=== PATIENT | male | born 1965 | race Caucasian/White ===

== ENCOUNTER 2022-02-20 10:45 | Emergency (ER) | payer OTHER, SELFPAY ==
[2022-02-20 10:47] VITALS: BP 138/79; PULSE 68; RESP 18; TEMP 36.1; O2SAT 97; BMI 29.0
--- NOTE | 2022-02-20 12:09 | ED_ITS ---
HPI - General Adult General Chief complaint: General Medical Stated complaint: Wounds on L hand Time Seen by Provider: 02/20/22 11:52 Source: patient Mode of arrival: ambulatory Limitations: language barrier (Danish-speaking medical assistant per diem utilized) History of Present Illness HPI narrative: Patient presents emergency department for evaluation of rash present to the bilateral backs of his hands. Onset was 3 months ago. Initially started with small raised bumps. He received a steroid cream from his primary care provider which he had been applying. He states over the past month that has seemed to get a lot worse. He stopped using steroid cream approximately 3 weeks ago as he felt this was contributing to it. He denies any additional skin lesions or rashes. Denies fevers or chills. Denies itching. Related Data Allergies Allergy/AdvReac Type Severity Reaction Status Date / Time No Known Allergies Allergy Unverified 03/12/20 16:40 Review of Systems Review of Systems: Constitutional: No weight loss, fever, chills, weakness or fatigue. Skin: Positive rash and itching. Cardiovascular: No chest pain, chest pressure or chest discomfort. No palpitations Respiratory: No shortness of breath, cough or sputum production. Gastrointestinal: No nausea, vomiting or diarrhea. No abdominal pain Genitourinary: No burning micturition. No urinary frequency or incontinence. Musculoskeletal: No muscle pain, back pain, joint pain or stiffness. Psychiatric: No depression or anxiety. Yes all other systems are reviewed and are negative [facility] Past Medical History Attestation statement: The following information was validated with the patient. Source: old records reviewed Social History Social History Advance Directives: No Advance Directives Information Provided: No Physical Exam ED Vital Signs: Vital Signs - 24 hr 02/20/22 10:47 Temperature 97 F Pulse Rate 68 Respiratory Rate 18 Blood Pressure 138/79 Pulse Oximetry 97 Oxygen Delivery Method Room Air BMI result Body Mass Index 29.0 Appearance: Alert.?Oriented to person, place and time. No acute distress.?Normal affect. Eyes: Pupils equal, round and reactive to light.? ENT: Pharynx normal.?? Neck: Normal inspection.? Neck supple.?? CVS: Heart sounds normal. Normal heart rate and rhythm.? Pulses normal.?? Respiratory: No respiratory distress.? Lung sounds clear to auscultation bilaterally?? Abdomen: Soft and non-tender. Skin: Skin warm and dry.? Normal skin color.? Bilateral dorsal hands, flexor surface knuckles with scales of linear fissures, poorly demarcated flesh-colored patches Extremities: No lower extremity edema.? Neuro: Moves all extremities spontaneously. Sensation intact bilaterally. Ambulates with normal steady gait. Course Course Course Narrative: Patient is a 56-year-old male presents emergency department for evaluation of a rash to the bilateral dorsal hands. Had trialed topical corticosteroid cream prescribed by his primary care provider. However he reports over the past few weeks the rash to be getting worse, and he felt this was related to the steroid cream therefore he stopped using it. Rash appears consistent with atopic dermatitis. No surrounding concerns for infection/cellulitis. Appears consistent with eczema. Advised twice daily moisturization, avoidance urine since that is being agents, use globes. Advised outpatient follow-up with primary care provider as needed. Reviewed worrisome signs and symptoms return back to emergency department for. All questions were answered, and patient is discharged home in stable condition. Medical Decision Making Medical Records Medical records reviewed: Yes I reviewed the patient's medical records. Discharge Plan Discharge Clinical Impression: Atopic dermatitis of both hands Patient Disposition: Home, Self-Care Instructions: Eczema (ED), Dermatitis (ED) Additional Instructions: As we discussed, please avoid contact with chemicals, cleaning agents, or excessive hand coastal/harbor defense officer to bare hands. You should consider the use of gloves. Please purchase from the pharmacy moisturizing ointment and apply twice daily. Avoid the use of steroid cream as he stated that this made it worse. Contact your primary care provider in arrange for a follow-up visit. You may return to emergency department at any time for any new or worsening symptoms or concerns Interventions: ED Discharge Assessment Last Done: 02/20/22 12:30 Discharge Date/Time: 02/20/22 12:31
== END 2022-02-20 12:31 | disposition home or self-care (01) ==
PROVIDERS: Emergency Provider Emergency Medicine; PCP Internal Medicine
DX: L30.9 Dermatitis, unspecified (principal)
CPT/HCPCS: 99283

== ENCOUNTER 2023-01-09 13:12 | Emergency (ER) | payer OTHER, SELFPAY | END 2023-01-09 15:04 | disposition left against medical advice (07) | PROVIDERS: Emergency Provider Emergency Medicine; PCP Internal Medicine | DX: S69.92XA Unspecified injury of left wrist, hand and finger(s), initial encounter (principal); S69.91XA Unspecified injury of right wrist, hand and finger(s), initial encounter; X58.XXXA Exposure to other specified factors, initial encounter; Y93.9 Activity, unspecified; Y92.9 Unspecified place or not applicable; Y99.9 Unspecified external cause status ==

== ENCOUNTER 2024-04-17 17:31 | Emergency (ER) | payer OTHER, SELFPAY ==
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
[2024-04-17 17:59] VITALS: BP 121/76; PULSE 48; RESP 18; TEMP 36.7; O2SAT 96; BMI 32.3
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
[2024-04-17 20:51] VITALS: BP 132/75; PULSE 50; RESP 16; TEMP 36.8; O2SAT 95
[2024-04-17] MEDS: methocarbamoL 750 MG TABLET PO (22:28)
[2024-04-17 23:02] VITALS: BP 132/75; PULSE 50; RESP 16; TEMP 36.8; O2SAT 95
== END 2024-04-17 23:03 | disposition home or self-care (01) ==
PROVIDERS: Emergency Provider Internal Medicine; PCP Internal Medicine
DX: S13.4XXA Sprain of ligaments of cervical spine, initial encounter (principal); S39.012A Strain of muscle, fascia and tendon of lower back, initial encounter; V43.52XA Car driver injured in collision with other type car in traffic accident, initial encounter; Y93.89 Activity, other specified; Y92.414 Local residential or business street as the place of occurrence of the external cause; Y99.9 Unspecified external cause status
CPT/HCPCS: 70450; 72100; 72125; 99282; 99284

== ENCOUNTER 2024-10-27 18:33 | Inpatient (IN) | payer OTHER, SELFPAY ==
[2024-10-27] VITALS (47 sets, daily range): BP systolic 78–213; BP diastolic 56–118; PULSE 35–132; RESP 12–44; TEMP 32–35.9; O2SAT 33–100; BMI 30.4; BMI 33.7
--- NOTE | 2024-10-27 | ECG_ITS ---
Test Reason : elevated trop Blood Pressure : */* mmHG Vent. Rate : 47 BPM Atrial Rate : 47 BPM P-R Int : 186 ms QRS Dur : 96 ms QT Int : 464 ms P-R-T Axes : 68 70 83 degrees QTcB Int : 410 ms Sinus bradycardia with Premature ventricular complexes Nonspecific ST and T wave abnormality Abnormal ECG No previous ECGs available Referred By: Marisel Garner Electronically Signed By: NUNU PEREZ
--- NOTE | ~2024-10-27 | CT_ITS ---
CLINICAL HISTORY: mental status changes CT head without contrast Comparison: CT/SR - CT HEAD/BRAIN WO IV CON - 04/17/24 19:02 EDT Findings: No intra-axial mass, midline shift, hydrocephalus, or acute hemorrhage. No significant atrophy-like change or white matter disease. Mucosal thickening throughout the paranasal sinuses. The orbits are within normal limits. No skull fracture. IMPRESSION: 1. No acute intracranial findings. This document has been electronically signed by: Rosendo Garcia MD on 10/27/2024 22:27:31
--- NOTE | ~2024-10-27 | XR_ITS ---
CLINICAL HISTORY: tube placement 1 view chest x-ray Comparison: CR - XR CHEST 2V - 10/27/24 19:49 EDT Findings: Study performed at 8:48 p.m. Patient has been intubated. Tip of the endotracheal tube is 5.6 cm superior to the foster. Defibrillator pads project over the right mid chest in the left lower chest. Interstitial markings remain prominent. IMPRESSION: Interval intubation. This document has been electronically signed by: Eddie Veras MD on 10/27/2024 21:22:42
--- NOTE | ~2024-10-27 | XR_ITS ---
CLINICAL HISTORY: mental status change, ? aspiration Exam: AP portable chest x-ray. Comparison: None. Findings: Defibrillator pad projects over the mid aspect of the right chest. Lungs are well inflated. Cardiac silhouette is at the upper limits of normal for size. Interstitial prominence seen throughout the lungs, especially within the right mid lung and right lung base. Small right pleural effusion. No pneumothorax. Impression: Interstitial prominence with small right pleural effusion. This can be seen with edema or bronchitis/bronchiolitis. This document has been electronically signed by: Eddie Veras MD on 10/27/2024 20:16:12
--- NOTE | ~2024-10-27 | XR_ITS ---
EXAMINATION: XR CHEST 1 VIEW HISTORY: NGT Placement COMPARISON: Comparison is made with the prior examination dated 10/27/2024. FINDINGS: A single AP view of the lower chest and upper abdomen is submitted. There may be tiny bilateral pleural effusions at the lung bases. A nasogastric tube is noted which terminates in the stomach. The heart is normal in size. There is degenerative disc disease of the spine. A metallic density projects over the right heart. XR/XR chest 1V IMPRESSION: The nasogastric tube terminates in the stomach. Electronically signed by: Kurtis Lazaro MD 10/28/2024 08:15 AM EDT
--- NOTE | 2024-10-27 18:51 | ECG_ITS ---
Test Reason : od Blood Pressure : */* mmHG Vent. Rate : 59 BPM Atrial Rate : 59 BPM P-R Int : 178 ms QRS Dur : 116 ms QT Int : 384 ms P-R-T Axes : 58 72 79 degrees QTcB Int : 380 ms Sinus bradycardia with frequent Premature ventricular complexes Nonspecific ST abnormality Abnormal ECG When compared with ECG of 27-Oct-2024 18:49, No significant change was found Referred By: Roshan Church Electronically Signed By: NUNU PEREZ
--- NOTE | 2024-10-27 18:54 | ED_ITS ---
HPI - General Adult General Chief complaint: Overdose Stated complaint: OD, Given Narcan 1 mg Time Seen by Provider: 10/27/24 18:54 Source: EMS and RN notes reviewed Mode of arrival: EMS Limitations: altered mental status History of Present Illness HPI narrative: 59-year-old male unknown medical history, presents via EMS. According to EMS, the patient was eating dinner when he ?passed out?. This was witnessed by the patient's . He apparently vomited as well. EMS was contacted. According to EMS his pupils were pinpoint and he was given 2 mg of Narcan and shortly after awoke. He admitted to EMS that he used 2 bags of heroin . in addition, he was noted by EMS to be bradycardic in the 30s to 40s, improved after Narcan. No known trauma. History is limited at this time due to patient condition. Related Data Home Medications ?Medication ?Instructions ?Recorded ?Confirmed methadone 10 mg tablet 100 mg PO DAILY 10/28/24 Allergies Allergy/AdvReac Type Severity Reaction Status Date / Time No Known Allergies Allergy Verified 10/27/24 18:54 Review of Systems 2 Review of Systems: Yes Unobtainable due to mental status PMFSH Past Medical History Source: unable to obtain Social History Social History (System 04/14/22 @ 08:21 by Nicole Rodriguez) Household Members: Significant Other and Children Housing: Apartment Do you presently have visiting nurse or other home services: No Patient Tobacco Use Status: Tobacco use Unknown Tobacco use type: Cigarette Cigarettes Per Day: 20 Smoked in Last 30 Days: Yes Patient Given Instructions on How to Stop Smoking: No (intubated/sedated) Use of substances other than those prescribed or required for medical reasons: Yes Substance Use Type: Heroin and Opiates Last Used Substance: Just Prior to Admission Currently Displaying Signs/Symptoms of Drug Intoxication Withdrawal: No Advance Directives: No Advance Directives Information Provided: No Recently lost weight without trying: Unsure Physical Exam ED Vital Signs: Vital Signs - 24 hr 10/27/24 18:53 10/27/24 19:05 10/27/24 19:08 Pulse Rate 50 40 L 41 L Respiratory Rate 18 14 12 Blood Pressure 165/102 H 213/118 H 203/108 H Pulse Oximetry 98 33 L 67 L Oxygen Delivery Method Room Air Non-Rebreather Mask Non-Rebreather Mask Oxygen Flow Rate 15 Fraction of Inspired Oxygen 10/27/24 19:09 10/27/24 19:10 10/27/24 19:11 Pulse Rate 65 79 58 Respiratory Rate 14 23 H 29 H Blood Pressure 202/118 H 191/116 H Pulse Oximetry 60 L 88 L 88 L Oxygen Delivery Method Non-Rebreather Mask Non-Rebreather Mask Non-Rebreather Mask Oxygen Flow Rate 15 15 15 Fraction of Inspired Oxygen 10/27/24 19:14 10/27/24 19:15 10/27/24 19:16 Pulse Rate 70 82 104 H Respiratory Rate 19 24 H 41 H Blood Pressure Pulse Oximetry 91 L 90 L Oxygen Delivery Method Non-Rebreather Mask Non-Rebreather Mask Oxygen Flow Rate 15 Fraction of Inspired Oxygen 10/27/24 19:20 10/27/24 19:21 10/27/24 19:24 Pulse Rate 132 H 96 115 H Respiratory Rate 23 H 28 H 41 H Blood Pressure 116/93 H Pulse Oximetry 87 L 95 92 Oxygen Delivery Method Non-Rebreather Mask Nasal Cannula with ETCO2 Non-Rebreather Mask Oxygen Flow Rate 15 15 Fraction of Inspired Oxygen 10/27/24 19:26 10/27/24 19:30 10/27/24 19:35 Pulse Rate 92 92 87 Respiratory Rate 41 H 41 H 40 H Blood Pressure 166/117 H 166/117 H 142/104 H Pulse Oximetry 90 L 90 L 96 Oxygen Delivery Method Non-Rebreather Mask Non-Rebreather Mask Non-Rebreather Mask Oxygen Flow Rate 15 15 Fraction of Inspired Oxygen 10/27/24 19:40 10/27/24 19:46 10/27/24 19:50 Pulse Rate 99 78 102 H Respiratory Rate 33 H 38 H 33 H Blood Pressure 154/104 H 162/106 H 123/92 H Pulse Oximetry 98 98 98 Oxygen Delivery Method Non-Rebreather Mask Non-Rebreather Mask Non-Rebreather Mask Oxygen Flow Rate 15 15 15 Fraction of Inspired Oxygen 10/27/24 20:00 10/27/24 20:02 10/27/24 20:03 Pulse Rate 55 63 35 L Respiratory Rate 35 H 39 H 39 H Blood Pressure 130/84 133/90 H Pulse Oximetry 97 97 97 Oxygen Delivery Method Non-Rebreather Mask Non-Rebreather Mask Non-Rebreather Mask Oxygen Flow Rate 15 15 15 Fraction of Inspired Oxygen 10/27/24 20:04 10/27/24 20:21 10/27/24 20:23 Pulse Rate 58 102 H 89 Respiratory Rate 32 H 42 H 39 H Blood Pressure 124/86 129/94 H Pulse Oximetry 97 99 98 Oxygen Delivery Method Non-Rebreather Mask Non-Rebreather Mask Non-Rebreather Mask Oxygen Flow Rate 15 15 15 Fraction of Inspired Oxygen 10/27/24 20:25 10/27/24 20:32 10/27/24 20:34 Pulse Rate 60 95 Respiratory Rate 44 H 36 H 20 Blood Pressure 137/81 Pulse Oximetry 98 96 Oxygen Delivery Method Non-Rebreather Mask Non-Rebreather Mask Oxygen Flow Rate 15 15 Fraction of Inspired Oxygen 10/27/24 20:34 10/27/24 20:37 10/27/24 20:45 Pulse Rate 78 79 75 Respiratory Rate 15 21 H 20 Blood Pressure 139/87 145/89 H 109/78 Pulse Oximetry 98 99 98 Oxygen Delivery Method Mechanical Ventilation Mechanical Ventilation Mechanical Ventilation Oxygen Flow Rate Fraction of Inspired Oxygen 10/27/24 20:50 10/27/24 20:59 10/27/24 21:01 Pulse Rate 86 70 79 Respiratory Rate 20 20 20 Blood Pressure 130/89 116/80 116/94 H Pulse Oximetry 96 93 91 L Oxygen Delivery Method Mechanical Ventilation Oxygen Flow Rate Fraction of Inspired Oxygen 10/27/24 21:01 10/27/24 21:06 10/27/24 21:19 Pulse Rate 74 70 Respiratory Rate 20 21 H Blood Pressure 128/94 H 128/94 H Pulse Oximetry 91 L 90 L Oxygen Delivery Method Mechanical Ventilation Oxygen Flow Rate Fraction of Inspired Oxygen 100 10/27/24 21:30 10/27/24 22:22 10/27/24 22:28 Pulse Rate 68 65 Respiratory Rate 20 23 H Blood Pressure 91/64 83/57 L Pulse Oximetry 94 Oxygen Delivery Method Oxygen Flow Rate Fraction of Inspired Oxygen BMI result Body Mass Index 30.4 Const Other: Patient arrives via EMS, unresponsive, some groaning to noxious stimuli. Eyes Other: Pupils are pinpoint and nonreactive Resp Other: Diminished throughout Cardio Rate: regular rate GI Other: Abdomen is soft Course Course Course Narrative: 6:50 p.m. patient noted to have several episodes of vomiting. 7:15 p.m. patient has received repeat doses of Narcan 2 mg IV. He does exhibit a brief response, becoming somewhat more responsive by opening his eyes and respiratory rate and heart rate are improving. At one point he did become alert enough, and confirmed that he snorted heroin. Discussed with and seen by Dr. Zarate at the bedside. Patient will continue to be on the cardiac and pulse oximetry monitoring. Patient will continue to receive IV fluids, labs pending at this time. We will initiate Narcan drip. 7:30 pm Patient appeared to be having seizure-like activity. Patient given midazolam and activity resolved. Patient continues to be monitored. Discussed with and seen by Dr. Zarate at the bedside. 7:50 p.m. patient tolerating non-rebreather, blood pressure remains stable. Heart rate sinus between the 50s and 60s. 8:00 p.m. VBG returned, patient with respiratory acidosis. Given this along with patient's condition, consideration for intubation to protect the patient's airway. 8:30 p.m. successful intubation with glide scope. Confirmatory chest x-ray ordered. Medications ordered by Dr. Zarate who was present and at the bedside for the entire procedure. 8:40 p.m. post intubation x-ray reviewed, ET tube advanced by respiratory therapy 1 cm. 9:[address] Bell who will accept the patient pending head CT results. 10:20 p.m. patient returned from CT, official reading pending. Patient signed out to Dr. Zarate with CT results pending. 10:22 p.m. the patient's , Rashad Barger, , who was in the waiting room. I reviewed the patient's condition with her. She was suspicious that the patient may have been using opioids recently as he had been nodding off recently at home. In addition she reported that she offered the patient Narcan but refused. She also confirmed that the patient is currently on methadone but is unsure if he had been taking it. Patient will be transferred to the ICU. Medications Administered Generic Name Dose Route Start Last Admin Trade Name Freq PRN Reason Stop Dose Admin Albuterol Sulfate 2.5 mg 10/27/24 23:45 10/28/24 00:20 Albuterol Sulfate (0.083%) 2.5 Mg/3 Ml Vial.Neb INHALE 2.5 mg Q4H PRN Administration Wheezing Albuterol/Ipratropium 3 ml 10/28/24 08:00 10/28/24 07:31 Albuterol/Iprat 2.5/0.5mg 3 Ml Ampul.Neb INHALE 3 ml RQ6H WHILE AWAKE CINDI Administration Chlorhexidine Gluconate 15 ml 10/28/24 09:00 10/28/24 07:36 Chlorhexidine Gluc Oral Rinse 15 Ml Mouthwash BUCCAL 15 ml TID CINDI Administration Famotidine 20 mg 10/28/24 09:00 10/28/24 07:36 Famotidine/Pf 20 Mg/2 Ml Vial IVPUSH 20 mg DAILY CINDI Administration Propofol 1,000 mg in 100 mls @ 0 mls/hr 10/27/24 20:45 10/28/24 10:33 Diprivan IVCONT 20 mcg/kg/min .Q0M CINDI 10.88 mls/hr Administration Protocol Per Protocol Fentanyl 1,000 mcg in 100 mls @ 0 mls/hr 10/27/24 22:15 10/28/24 09:37 Sublimaze/Ns IVCONT 75 mcg/hr .Q0M CINDI 7.5 mls/hr Administration Protocol Per Protocol Norepinephrine Bitartrate 8 mg in 250 mls @ 0 mls/hr 10/27/24 22:30 10/28/24 09:14 Levophed IVCONT 0.21 mcg/kg/min .Q0M CINDI 35.71 mls/hr Titration Protocol Per Protocol Ampicillin Sodium/Sulbactam 100 mls @ 200 mls/hr 10/27/24 23:15 10/28/24 11:08 Sodium 3 gm/ Sodium Chloride IV Infused Q6H CINDI Infusion Dopamine HCl/Dextrose 400 mg in 250 mls @ 0 mls/hr 10/27/24 23:30 10/28/24 08:40 Dopamine Hcl/D5w IVCONT 0 mcg/kg/min .Q0M CINDI 0 mls/hr Titration Protocol Per Protocol Heparin Sodium/Sodium Chloride 25,000 unit in 250 mls @ 0 mls/hr 10/28/24 02:30 10/28/24 09:30 Heparin Sodium,Porcine/1/2ns IVCONT 14 units/kg/hr .Q0M CINDI 12.77 mls/hr Titration Protocol Per Protocol Potassium Phosphate 15 mmol in 250 mls @ 62.5 mls/hr 10/28/24 08:00 10/28/24 07:36 Kphos IV 10/28/24 11:59 62.5 mls/hr ONCE ONE Administration Discontinued Medications Generic Name Dose Route Start Last Admin Trade Name Sanchoq PRN Reason Stop Dose Admin Enoxaparin Sodium 40 mg 10/27/24 23:00 10/28/24 00:20 Enoxaparin Sodium 40 Mg/0.4 Ml Syringe SUBCUT 40 mg Q24H CINDI Administration Fentanyl 25 mcg 10/27/24 20:35 10/27/24 20:34 Fentanyl Citrate/Pf 100 Mcg/2 Ml Vial IVPUSH 10/27/24 20:36 25 mcg ONCE ONE Administration Protocol Naloxone HCl 5 mg/ Dextrose 100 mls @ 20 mls/hr 10/27/24 19:15 10/27/24 23:49 IV Infused .Q5H CINDI Infusion 1 MG/HR Sodium Chloride 1,000 mls @ 999 mls/hr 10/27/24 19:45 10/27/24 20:30 Ns IV 10/27/24 20:45 Infused .Q1H1M CINDI Infusion Ketamine HCl 100 mg 10/27/24 20:35 10/27/24 20:31 Ketamine Hcl/Ns 50 Mg/5 Ml Syringe IVPUSH 10/27/24 20:36 100 mg ONCE ONE Administration Midazolam HCl 2 mg 10/27/24 19:19 10/27/24 19:24 Midazolam Hcl 2 Mg/2 Ml Vial IVPUSH 10/27/24 19:20 2 mg ONCE ONE Administration Midazolam HCl 4 mg 10/27/24 22:14 10/27/24 22:17 Midazolam Hcl 2 Mg/2 Ml Vial IVPUSH 10/27/24 22:15 4 mg ONCE ONE Administration Naloxone HCl 2 mg 10/27/24 18:55 10/27/24 19:08 Naloxone Hcl 2 Mg/2 Ml Syringe IVPUSH 10/27/24 18:56 2 mg ONCE ONE Administration Naloxone HCl 2 mg 10/27/24 18:55 10/27/24 19:11 Naloxone Hcl 2 Mg/2 Ml Syringe IVPUSH 10/27/24 18:56 2 mg ONCE ONE Administration Naloxone HCl 2 mg 10/27/24 19:11 10/27/24 19:15 Naloxone Hcl 2 Mg/2 Ml Syringe IVPUSH 10/27/24 19:12 2 mg ONCE ONE Administration Propofol 25 mg 10/27/24 21:59 10/27/24 22:20 Propofol 200 Mg/20 Ml Vial IVPUSH 10/27/24 22:00 25 mg ONCE ONE Administration Rocuronium [place] 10 mg 10/27/24 20:36 10/27/24 20:43 Rocuronium [place] 50 Mg/5 Ml Vial IVPUSH 10/27/24 20:37 10 mg ONCE ONE Administration Succinylcholine Chloride 100 mg 10/27/24 20:36 10/27/24 20:32 Succinylcholine Chloride 200 Mg/10 Ml Vial IVPUSH 10/27/24 20:37 100 mg ONCE ONE Administration Procedures Intubation Intubation Type:: Emergency Endotracheal Intubation Intubation Date:: 10/27/24 Intubation Time:: 20:30 Time out performed: Yes sedative: Ketamine paralytic: other (rocuronium and succinylcholine) Laryngoscope: other (Glidescope) ET Tube Size: 7.5 ET Tube Uncuffed: Yes Tube Secured Depth (cm): 25 Tube Secured Location: lips Tube Placement Confirmation: visualized tube passing through cords, equal breath sounds bilaterally, no breath sounds over epigastrium and confirmation by capnometry Patient Tolerated Procedure: well and no complications Intubation Complications: none Medical Decision Making Medical Decision Making [facility] Narrative: 59-year-old male with unknown medical history, suspected opioid overdose, currently responding to doses of Narcan but with short term response. Respiratory rate and heart rate improved after these doses. Pupils become responsive. However this has not been sustained at this time. Consideration for additional causes, check labs, EKG, chest x-ray, CT of the brain. Fingerstick glucose 160. Differential Diagnosis Differential Diagnoses: The differential diagnosis associated with the presentation includes Intracranial bleed Opiate overdose Respiratory failure Arrhythmia Metabolic abnormality Admission/Observation Consideration of admission/observation: Escalation of care including admission/observation considered Consult Healthcare Provider Management of the patient was discussed with: Hospitalist (ICU) Lab Data [facility] Lab Attestation statement: I reviewed the patient's lab results. 10/28/24 06:04 10/28/24 06:04 Labs: Lab Results 10/27/24 10/27/24 10/27/24 Range/Units 18:50 19:00 19:01 WBC 11.4 H (4.8-10.8) X10*3/uL RBC 4.95 (4.60-5.80) X10*6/uL Hgb 14.6 (14.0-18.0) g/dl Hct 42.3 (42.0-52.0) % MCV 85.5 (80.0-98.0) fL MCH 29.5 (27.0-33.0) pg MCHC 34.5 (31.0-36.0) g/dl RDW 13.2 (11.0-16.0) % Plt Count 271 (160-400) X10*3/uL MPV 11.0 (9.4-12.4) fL Immature Gran % (Auto) 0.4 (0.0-0.4) % Neut % (Auto) 56.5 (45-73) % Lymph % (Auto) 29.2 (20-40) % [place] % (Auto) 8.5 (2-11) % Eos % (Auto) 4.8 H (0-4) % Baso % (Auto) 0.6 (0-2) % Lymph # (Auto) 3.3 (1.2-4.9) X10*3/uL [place] # (Auto) 1.0 (0.1-1.2) X10*3/uL Eos # (Auto) 0.6 H (0.0-0.4) X10*3/uL Baso # (Auto) 0.1 (0.0-0.2) X10*3/uL Abs Immat Gran (auto) 0.05 H (0.00-0.03) X10*3/uL Absolute Neuts (auto) 6.4 (2.0-8.3) x10*3/uL Absolute Nucleated RBC 0.000 (0.0-0.012) X10*3/uL Nucleated RBC % (auto) 0.0 (0.0-0.2) /100WBC PT 11.3 (10.9-12.4) SEC INR 1.0 (0.9-1.1) VBG pH (7.32-7.43) VBG pCO2 mmHg VBG pO2 mmHg VBG HCO3 (22-26) mmol/L VBG O2 Saturation % VBG Base Excess mmol/L Sodium 139 (135-145) mmol/L Potassium 3.6 (3.3-5.1) mmol/L Chloride 107 (96-108) mmol/L Carbon Dioxide 21 L (22-29) mmol/L Anion Gap 15 (12-20) BUN 15 (9-16) mg/dL Creatinine 0.67 (0.5-1.4) mg/dL Estim Creat Clear Calc 126.6 Estimated GFR > 60 POC Glucose 160 H (60-115) mg/dL Random Glucose 171 H (60-115) mg/dL Lactic Acid 2.1 H* (0.5-2.0) mmol/L Lactic Acid F/U @ 2Hr (0.5-2.0) mmol/L Calcium 9.3 (8.4-10.2) mg/dL Total Bilirubin 0.3 (0.0-1.0) mg/dL AST 22 (5-37) U/L ALT 18 (0-40) U/L Alkaline Phosphatase 83 (39-117) U/L Total Creatine Kinase 113 (38-174) U/L Troponin I Hi Sens Base 3.5 (<3.5-35.0) ng/L Troponin I Hi Sens 2 Hr (<3.5-35.0) ng/L Total Protein 7.0 (6.5-8.0) g/dL Albumin 4.0 (3.5-5.0) g/dL Salicylates < 5.0 L (15-30) mg/dL Urine Opiates Screen (Not Detect) Ur Buprenorphine Scrn (Not Detect) ng/mL Ur Oxycodone Screen (Not Detect) ng/mL Urine Methadone Screen (Not Detect) ng/mL Urine Fentanyl Screen (Not Detect) Acetaminophen < 3 (<30) mcg/mL Ur Barbiturates Screen (Not Detect) Ur Phencyclidine Scrn (Not Detect) Ur Amphetamines Screen (Not Detect) U Benzodiazepines Scrn (Not Detect) Urine Cocaine Screen (Not Detect) U Marijuana (THC) Screen (Not Detect) 10/27/24 10/27/24 10/27/24 Range/Units 19:30 19:45 22:10 WBC (4.8-10.8) X10*3/uL RBC (4.60-5.80) X10*6/uL Hgb (14.0-18.0) g/dl Hct (42.0-52.0) % MCV (80.0-98.0) fL MCH (27.0-33.0) pg MCHC (31.0-36.0) g/dl RDW (11.0-16.0) % Plt Count (160-400) X10*3/uL MPV (9.4-12.4) fL Immature Gran % (Auto) (0.0-0.4) % Neut % (Auto) (45-73) % Lymph % (Auto) (20-40) % [place] % (Auto) (2-11) % Eos % (Auto) (0-4) % Baso % (Auto) (0-2) % Lymph # (Auto) (1.2-4.9) X10*3/uL [place] # (Auto) (0.1-1.2) X10*3/uL Eos # (Auto) (0.0-0.4) X10*3/uL Baso # (Auto) (0.0-0.2) X10*3/uL Abs Immat Gran (auto) (0.00-0.03) X10*3/uL Absolute Neuts (auto) (2.0-8.3) x10*3/uL Absolute Nucleated RBC (0.0-0.012) X10*3/uL Nucleated RBC % (auto) (0.0-0.2) /100WBC PT (10.9-12.4) SEC INR (0.9-1.1) VBG pH 7.05 L* (7.32-7.43) VBG pCO2 86 mmHg VBG pO2 168 mmHg VBG HCO3 24 (22-26) mmol/L VBG O2 Saturation 99.0 % VBG Base Excess -8.2 mmol/L Sodium (135-145) mmol/L Potassium (3.3-5.1) mmol/L Chloride (96-108) mmol/L Carbon Dioxide (22-29) mmol/L Anion Gap (12-20) BUN (9-16) mg/dL Creatinine (0.5-1.4) mg/dL Estim Creat Clear Calc Estimated GFR POC Glucose (60-115) mg/dL Random Glucose (60-115) mg/dL Lactic Acid (0.5-2.0) mmol/L Lactic Acid F/U @ 2Hr 1.7 (0.5-2.0) mmol/L Calcium (8.4-10.2) mg/dL Total Bilirubin (0.0-1.0) mg/dL AST (5-37) U/L ALT (0-40) U/L Alkaline Phosphatase (39-117) U/L Total Creatine Kinase (38-174) U/L Troponin I Hi Sens Base (<3.5-35.0) ng/L Troponin I Hi Sens 2 Hr 494.7 H* (<3.5-35.0) ng/L Total Protein (6.5-8.0) g/dL Albumin (3.5-5.0) g/dL Salicylates (15-30) mg/dL Urine Opiates Screen POSITIVE H (Not Detect) Ur Buprenorphine Scrn Not Detected (Not Detect) ng/mL Ur Oxycodone Screen Positive H (Not Detect) ng/mL Urine Methadone Screen Positive H (Not Detect) ng/mL Urine Fentanyl Screen POSITIVE H (Not Detect) Acetaminophen (<30) mcg/mL Ur Barbiturates Screen Not Detected (Not Detect) Ur Phencyclidine Scrn Not Detected (Not Detect) Ur Amphetamines Screen Not Detected (Not Detect) U Benzodiazepines Scrn Not Detected (Not Detect) Urine Cocaine Screen Not Detected (Not Detect) U Marijuana (THC) Screen Not Detected (Not Detect) 10/27/24 Range/Units 22:15 WBC (4.8-10.8) X10*3/uL RBC (4.60-5.80) X10*6/uL Hgb (14.0-18.0) g/dl Hct (42.0-52.0) % MCV (80.0-98.0) fL MCH (27.0-33.0) pg MCHC (31.0-36.0) g/dl RDW (11.0-16.0) % Plt Count (160-400) X10*3/uL MPV (9.4-12.4) fL Immature Gran % (Auto) (0.0-0.4) % Neut % (Auto) (45-73) % Lymph % (Auto) (20-40) % [place] % (Auto) (2-11) % Eos % (Auto) (0-4) % Baso % (Auto) (0-2) % Lymph # (Auto) (1.2-4.9) X10*3/uL [place] # (Auto) (0.1-1.2) X10*3/uL Eos # (Auto) (0.0-0.4) X10*3/uL Baso # (Auto) (0.0-0.2) X10*3/uL Abs Immat Gran (auto) (0.00-0.03) X10*3/uL Absolute Neuts (auto) (2.0-8.3) x10*3/uL Absolute Nucleated RBC (0.0-0.012) X10*3/uL Nucleated RBC % (auto) (0.0-0.2) /100WBC PT (10.9-12.4) SEC INR (0.9-1.1) VBG pH 7.30 L (7.32-7.43) VBG pCO2 49 mmHg VBG pO2 59 mmHg VBG HCO3 24 (22-26) mmol/L VBG O2 Saturation 83.0 % VBG Base Excess -2.2 mmol/L Sodium (135-145) mmol/L Potassium (3.3-5.1) mmol/L Chloride (96-108) mmol/L Carbon Dioxide (22-29) mmol/L Anion Gap (12-20) BUN (9-16) mg/dL Creatinine (0.5-1.4) mg/dL Estim Creat Clear Calc Estimated GFR POC Glucose (60-115) mg/dL Random Glucose (60-115) mg/dL Lactic Acid (0.5-2.0) mmol/L Lactic Acid F/U @ 2Hr (0.5-2.0) mmol/L Calcium (8.4-10.2) mg/dL Total Bilirubin (0.0-1.0) mg/dL AST (5-37) U/L ALT (0-40) U/L Alkaline Phosphatase (39-117) U/L Total Creatine Kinase (38-174) U/L Troponin I Hi Sens Base (<3.5-35.0) ng/L Troponin I Hi Sens 2 Hr (<3.5-35.0) ng/L Total Protein (6.5-8.0) g/dL Albumin (3.5-5.0) g/dL Salicylates (15-30) mg/dL Urine Opiates Screen (Not Detect) Ur Buprenorphine Scrn (Not Detect) ng/mL Ur Oxycodone Screen (Not Detect) ng/mL Urine Methadone Screen (Not Detect) ng/mL Urine Fentanyl Screen (Not Detect) Acetaminophen (<30) mcg/mL Ur Barbiturates Screen (Not Detect) Ur Phencyclidine Scrn (Not Detect) Ur Amphetamines Screen (Not Detect) U Benzodiazepines Scrn (Not Detect) Urine Cocaine Screen (Not Detect) U Marijuana (THC) Screen (Not Detect) Independent Interpretation I performed an independent interpretation of an: EKG and Plain X-Ray Interpretation: 6:49 p.m. EKG is 53 beats per minute without any acute ischemic changes. Chest x-ray, no pneumothorax. Radiology Impression Discussion of test interpretation with radiology: I have reviewed the radiologist's reading. Radiologist Impression: [place] [id number] CT Scan Report Signed Patient: Flavio Wood MR#: [id number] : 1965 Acct:[id number] Age/Sex: 59 / M ADM Date: 10/27/24 Loc: HO.ED Attending Dr: Ordering Physician: Roshan Church Date of Service: 10/27/24 Procedure(s): CT head/brain wo IV con Accession Number(s): [id number] cc: Physician,Unknown ; Roshan Church~ Report Number: [id number]: Total DLP = 716.00 mGy-cm CLINICAL HISTORY: mental status changes CT head without contrast Comparison: CT/SR - CT HEAD/BRAIN WO IV CON - 04/17/24 19:02 EDT Findings: No intra-axial mass, midline shift, hydrocephalus, or acute hemorrhage. No significant atrophy-like change or white matter disease. Mucosal thickening throughout the paranasal sinuses. The orbits are within normal limits. No skull fracture. IMPRESSION: 1. No acute intracranial findings. This document has been electronically signed by: Rosendo Garcia MD on 10/27/2024 22:27:31 Dictated By: Rosendo Garcia MD Signed By: <Electronically signed by Rosendo Garcia MD in [place]> 10/27/242228 DD/ 26 TD/TT: 10/27/242226 Kindergarten Tutor: [address] [id number] XRay Report Signed Patient: Flavio Wood MR#: [id number] : 1965 Acct:[id number] Age/Sex: 59 / M ADM Date: 10/27/24 Loc: HO.ED Attending Dr: Ordering Physician: Roshan Church Date of Service: 10/27/24 Procedure(s): XR chest 1V Accession Number(s): [id number] cc: Physician,Unknown ; Roshan Church~ CLINICAL HISTORY: tube placement 1 view chest x-ray Comparison: CR - XR CHEST 2V - 10/27/24 19:49 EDT Findings: Study performed at 8:48 p.m. Patient has been intubated. Tip of the endotracheal tube is 5.6 cm superior to the foster. Defibrillator pads project over the right mid chest in the left lower chest. Interstitial markings remain prominent. IMPRESSION: Interval intubation. This document has been electronically signed by: Eddie Veras MD on 10/27/2024 21:22:42 Dictated By: Eddie Veras MD Signed By: <Electronically signed by Eddie Veras MD in [place]> 10/27/242122 DD/ 21 TD/TT: 10/27/242121 Kindergarten Tutor: [address] [address] XRay Report Signed Patient: Flavio Wood MR#: [id number] : 1965 Acct:[id number] Age/Sex: 59 / M ADM Date: 10/27/24 Loc: .ED Attending Dr: Ordering Physician: Roshan Church Date of Service: 10/27/24 Procedure(s): XR chest 1V Accession Number(s): [id number] cc: Physician,Unknown ; Roshan Church~ CLINICAL HISTORY: mental status change, ? aspiration Exam: AP portable chest x-ray. Comparison: None. Findings: Defibrillator pad projects over the mid aspect of the right chest. Lungs are well inflated. Cardiac silhouette is at the upper limits of normal for size. Interstitial prominence seen throughout the lungs, especially within the right mid lung and right lung base. Small right pleural effusion. No pneumothorax. Impression: Interstitial prominence with small right pleural effusion. This can be seen with edema or bronchitis/bronchiolitis. This document has been electronically signed by: Eddie Veras MD on 10/27/2024 20:16:12 Dictated By: Eddie Veras MD Signed By: <Electronically signed by Eddie Veras MD in [place]> 10/27/242016 DD/ 15 TD/TT: 10/27/242015 Kindergarten Tutor: Independent Historian Clinical information obtained from an independent historian. History obtained from or confirmed by: EMS External Record Review External record reviewed: Outpatient record Reviewed patient's [facility] Patient?s care significantly limited by Social Determinants of Health including: Alcoholism and drug addiction in family Critical Care Time Critical Care Time Critical Care Time: Yes Total Critical Care Time: 120 Attestation: Repeat assessments, impending respiratory and cardiac failure, repeat doses of medications, decision for critical care procedures, see additional note. Discussion with staff and fruit harvester. Discharge Plan Discharge Clinical Impression: Drug overdose, Respiratory failure Patient Disposition: Admitted As Inpatient Interventions: Admission Worksheet (ED) Last Done: 10/27/24 23:02 Discharge Date/Time: 10/27/24 23:18
[2024-10-27 18:56] LABS: Glucose, Whole Blood 160 mg/dL (60-115)
[2024-10-27 19:07] LABS: MANUAL DIFF FLAG NO
[2024-10-27] MEDS: Naloxone HCl 2 MG/2 ML SYRINGE IVPUSH ×3 (19:08→19:15)
[2024-10-27 19:09] LABS: Basophils Absolute Auto 0.1 X10*3/uL (0.0-0.2); Basophils Percent Auto 0.6 % (0-2); Eosinophils Absolute Auto 0.6 X10*3/uL (0.0-0.4); Eosinophils Percent Auto 4.8 % (0-4); Hematocrit 42.3 % (42.0-52.0); Hemoglobin 14.6 g/dl (14.0-18.0); Imm Gran Abs Auto 0.05 X10*3/uL (0.00-0.03); Imm Gran Pct Auto 0.4 % (0.0-0.4); Lymphocytes Absolute Auto 3.3 X10*3/uL (1.2-4.9); Lymphocytes Percent Auto 29.2 % (20-40); Mean Corpuscular HGB Conc 34.5 g/dl (31.0-36.0); Mean Corpuscular Hemoglobin 29.5 pg (27.0-33.0); Mean Corpuscular Volume 85.5 fL (80.0-98.0); Monocytes Percent Auto 8.5 % (2-11); Neutrophils Absolute Auto 6.4 x10*3/uL (2.0-8.3); Neutrophils Percent Auto 56.5 % (45-73); Platelet Count 271 X10*3/uL (160-400); Red Blood Count 4.95 X10*6/uL (4.60-5.80); Red Cell Distribution Width 13.2 % (11.0-16.0); White Blood Count 11.4 X10*3/uL (4.8-10.8)
[2024-10-27 19:15] LABS: Prothrombin Time 11.3 SEC (10.9-12.4)
[2024-10-27 19:23] LABS: Alanine Aminotransferase 18 U/L (0-40); Alkaline Phosphatase 83 U/L (39-117); Anion Gap 15 (12-20); Aspartate Amino Transferase 22 U/L (5-37); Bilirubin Total 0.3 mg/dL (0.0-1.0); Blood Urea Nitrogen 15 mg/dL (9-16); Calcium 9.3 mg/dL (8.4-10.2); Carbon Dioxide 21 mmol/L (22-29); Chloride 107 mmol/L (96-108); Creatinine Clr Calc Pharmacy 126.6; Estimated Glomerular Filt Rate > 60; Glucose Random 171 mg/dL (60-115); Potassium 3.6 mmol/L (3.3-5.1); Sodium 139 mmol/L (135-145)
[2024-10-27 19:24] LABS: Acetaminophen LAB < 3 mcg/mL (<30); Salicylate < 5.0 mg/dL (15-30)
[2024-10-27] MEDS: Midazolam HCl 2 MG/2 ML VIAL IVPUSH (19:24)
[2024-10-27] MEDS: 0.9 % Sodium Chloride 1,000 ML 999 ML IV (19:26)
[2024-10-27 19:27] LABS: Lactic Acid 2.1 mmol/L (0.5-2.0)
[2024-10-27 19:31] LABS: Troponin-I High Sens Reflx 2hr 3.5 ng/L (<3.5-35.0)
[2024-10-27 19:37] LABS: VBG Base Excess -8.2 mmol/L; VBG HCO3 24 mmol/L (22-26); VBG pCO2 86 mmHg; VBG pH 7.05 (7.32-7.43); VBG pO2 168 mmHg
[2024-10-27 19:37] LABS: Venous Blood Gas Refer to POC result
[2024-10-27] MEDS: Naloxone HCl 5 MG in Dextrose 5 % 95 ML 20 MG IV (19:42)
--- NOTE | 2024-10-27 19:58 | ECG_ITS ---
Test Reason : OD Blood Pressure : */* mmHG Vent. Rate : 53 BPM Atrial Rate : 53 BPM P-R Int : 198 ms QRS Dur : 106 ms QT Int : 454 ms P-R-T Axes : 44 23 66 degrees QTcB Int : 426 ms Sinus bradycardia with occasional Premature ventricular complexes Otherwise normal ECG When compared with ECG of 06-Jan-2017 08:29, Premature ventricular complexes Present Referred By: Marisel Garner Electronically Signed By: NUNU PEREZ
[2024-10-27 20:02] LABS: Amphetamine Screen Urine Not Detected (Not Detect); Barbiturates, Urine Not Detected (Not Detect); Benzodiazepines Screen Urine Not Detected (Not Detect); Buprenorphine Scr Not Detected (Not Detect); Cannabinoid Screen Urine Not Detected (Not Detect); Cocaine Screen Urine Not Detected (Not Detect); Fentanyl, urine POSITIVE (Not Detect); Methadone Screen, Urine Positive (Not Detect); Opiate Screen Urine POSITIVE (Not Detect); Oxycodone Screen Urine Positive (Not Detect); Phencyclidine Screen Urine Not Detected (Not Detect)
[2024-10-27] MEDS: Ketamine HCl/NS 50 MG/5 ML SYRINGE 100 MG IVPUSH (20:31)
[2024-10-27] MEDS: Succinylcholine Chloride 200 MG/10 ML VIAL 100 MG IVPUSH (20:32)
[2024-10-27] MEDS: fentaNYL citrate/PF 100 MCG/2 ML VIAL 25 MCG IVPUSH (20:34)
[2024-10-27] MEDS: Rocuronium Bromide 50 MG/5 ML VIAL 10 MG IVPUSH (20:43)
[2024-10-27] MEDS: propofoL 1,000 MG/100 ML VIAL 16.33 MG IVCONT (20:50)
[2024-10-27 21:05] LABS: Reflex Lactate? Lactic Acid Added; Reflex Trop? Y
--- NOTE | 2024-10-27 21:16 | PC.NURSE ---
Waste of Fentanyl 75 mcg and Rocuronium 40 mg from RSI kit by LEILA Ramires.
--- NOTE | 2024-10-27 21:36 | PC.NURSE ---
Arrived to ED at 1842, pt unresponsive and heart rate in 30s-50s. Per EMS pt received a total of 2mg IV narcan with minimal response. EKG done, Labs drawn. Pacer pads placed. Pt put on nasal cannula then pt desatted to 60% and pt placed on nonrebreather at 15L with O2 improving to upper 80s. NS hung. 1908 narcan 2 mg IVP administered with minimal response and pt vomiting. 1910 narcan 2mg IVP administered with minimal response. 1914 Respiratory therapist nasally suctioned patient. 0 Narcan 4mg IVP administered with minimal response. Pt became restless and agitated. 1923 Versed 2mg IVP administered. 1925 NS IV bolus administered. 1944 #16F bravo inserted. 2028 NS IVF administered 2030 Ketamine 100mg IVP administered. 2031 Succinylcholine 100mg administered. 2032 pt intubated with 7.5 ET tube and 24 at lip. Setting on vent R 20 Vol 410 50% and 5 PEEP 2033 Fentanyl 25mcg IVP administered. 2037 bilateral soft wrist restraints applied per physician order. 2049 propofol drip started at 30mcg/kg/min. 2054 CXR taken 2099 ET tube advanced to 27 at lip 2100 propofol drip increased to 40mcg/kg/min. 2105 propofol drip increased to 50mcg/kg/min [address] scan with RT.
[2024-10-27] MEDS: Midazolam HCl 2 MG/2 ML VIAL 4 MG IVPUSH (22:17)
[2024-10-27 22:18] LABS: VBG Base Excess -2.2 mmol/L; VBG HCO3 24 mmol/L (22-26); VBG pCO2 49 mmHg; VBG pO2 59 mmHg
[2024-10-27 22:18] LABS: Venous Blood Gas Refer to POC result
[2024-10-27] MEDS: propofoL 200 MG/20 ML VIAL 25 MG IVPUSH (22:20)
[2024-10-27] MEDS: fentaNYL citrate/NS 1,000 MCG/100 ML PLAST..BAG 2.5 MCG IVCONT (22:22)
[2024-10-27] MEDS: Norepinephrine Bitartrate/D5W 8 MG/250 ML PLAST..BAG 8.5 MG IVCONT (22:28)
[2024-10-27 22:30] LABS: ~Lactic Acid-LAB USE ONLY 1.7 mmol/L (0.5-2.0)
--- NOTE | 2024-10-27 22:34 | P.HPCC_ITS ---
History of Present Illness Date of Service: 10/27/24 Attending physician on admission: Son Bell Chief Complaint: Overdose ?The patient is a 59-year-old male with past medical history of polysubstance abuse on methadone who presented? to the emergency department via EMS ? due to overdose.? According to patient was eating dinner when he ?passed out?? and vomited.? According to EMS his pupils were pinpoint,? he was bradycardic to 30s and 40s,? 2 mg Narcan administered en route to hospital,? with the patient waking up after and admitted to do in 2 bags of heroin.? ?On arrival to the emergency department,? patient? patient is lethargic,? requiring multiple doses of IV Narcan and initiation of Narcan drip with no significant improvement in mentation.? ? Required emergent intubation for airway protection Initial venous gas: 7.05/168/24 Utox:? positive for opiates, oxycodone, methadone, and fentanyl Review of Systems 2 Review of Systems: Yes unobtainable due to endotracheal tube PMFSH Social History Social History (System 04/14/22 @ 08:21 by Nicole Rodriguez) Household Members: Significant Other and Children Housing: Apartment Do you presently have visiting nurse or other home services: No Patient Tobacco Use Status: Tobacco use Unknown Tobacco use type: Cigarette Cigarettes Per Day: 20 Smoked in Last 30 Days: Yes Patient Given Instructions on How to Stop Smoking: No (intubated/sedated) Use of substances other than those prescribed or required for medical reasons: Yes Substance Use Type: Heroin and Opiates Last Used Substance: Just Prior to Admission Currently Displaying Signs/Symptoms of Drug Intoxication Withdrawal: No Advance Directives: No Advance Directives Information Provided: No Recently lost weight without trying: Unsure service: No Meds Allergies Allergy/AdvReac Type Severity Reaction Status Date / Time No Known Allergies Allergy Verified 10/27/24 18:54 Active Medications: Current Medications Chlorhexidine Gluconate (Chlorhexidine Gluc Oral Rinse 15 Ml Mouthwash) 15 ml BUCCAL TID CINDI Enoxaparin Sodium (Enoxaparin Sodium 40 Mg/0.4 Ml Syringe) 40 mg SUBCUT Q24H CINDI Famotidine (Famotidine/Pf 20 Mg/2 Ml Vial) 20 mg IVPUSH DAILY CINDI Propofol (Diprivan) 1,000 mg in 100 mls @ 0 mls/hr IVCONT .Q0M CINDI; Protocol Last Titration: 10/27/24 21:06 Dose: 50 mcg/kg/min, 27.21 mls/hr Fentanyl (Sublimaze/Ns) 1,000 mcg in 100 mls @ 0 mls/hr IVCONT .Q0M CINDI; Protocol Last Admin: 10/27/24 22:22 Dose: 25 mcg/hr, 2.5 mls/hr Norepinephrine Bitartrate (Levophed) 8 mg in 250 mls @ 0 mls/hr IVCONT .Q0M CINDI; Protocol Last Admin: 10/27/24 22:28 Dose: 0.05 mcg/kg/min, 8.5 mls/hr Naloxone HCl (Naloxone Hcl 0.4 Mg/Ml Vial) 0.2 mg IVPUSH Q2M PRN PRN Reason: Excessive sedation or RR < 8 Home Medications ?Medication ?Instructions ?Recorded ?Confirmed ?Last Taken ?Type methadone 10 mg tablet 100 mg PO DAILY 10/28/24 10/27/24 History Physical Exam 2 Vital Signs: Vital Signs: Last Vital Signs Pulse 65 10/27/24 22:28 Resp 23 H 10/27/24 22:22 BP 83/57 L 10/27/24 22:28 Pulse Ox 94 10/27/24 22:22 O2 Del Method Mechanical Ventil ation 10/27/24 21:01 O2 Flow Rate 15 10/27/24 20:32 FiO2 100 10/27/24 21:19 BMI result Body Mass Index 30.4 ?General:? Intubated ?HEENT:? Head is normocephalic, atraumatic, pupils equal round reactive to light accommodation bilaterally.?? Buccal mucosa is moist, Neck is supple ?Cardiac: Sinus bradycardia,? Clear S1-S2, no murmurs rubs or gallops. ?Pulmonary:? Expiratory wheezes, on VENT AC settin/410/5/50% ?Abdomen:? ?Abdomen soft, non-tender, non-distended. Normal bowel sounds. No pulsatile mass. No hepatosplenomegaly. ?Musculoskeletal:? Moving all 4 extremities randmly.? ?Neurologic:? cranial nerves 2-12 are grossly intact.? No focal deficits noted.Motor strength as above.?? ?Skin: Scattered bruises throughout.?No ulcers. Vascular:? 2+ pulses upper and lower extremities distally.? Results Labs 10/29/24 04:25 10/28/24 21:09 Labs: Laboratory Results - last 24 hr 10/27/24 10/27/24 10/27/24 18:50 19:00 19:01 MCV 85.5 MCH 29.5 MCHC 34.5 RDW 13.2 Plt Count 271 MPV 11.0 Immature Gran % (Auto) 0.4 Neut % (Auto) 56.5 Lymph % (Auto) 29.2 [place] % (Auto) 8.5 Eos % (Auto) 4.8 H Baso % (Auto) 0.6 Lymph # (Auto) 3.3 [place] # (Auto) 1.0 Eos # (Auto) 0.6 H Baso # (Auto) 0.1 Abs Immat Gran (auto) 0.05 H Absolute Neuts (auto) 6.4 Absolute Nucleated RBC 0.000 Nucleated RBC % (auto) 0.0 PT 11.3 INR 1.0 VBG pH VBG pCO2 VBG pO2 VBG HCO3 VBG O2 Saturation VBG Base Excess Anion Gap 15 Estim Creat Clear Calc 126.6 Estimated GFR > 60 POC Glucose 160 H Random Glucose 171 H Lactic Acid 2.1 H* Lactic Acid F/U @ 2Hr Calcium 9.3 Total Bilirubin 0.3 AST 22 ALT 18 Alkaline Phosphatase 83 Troponin I Hi Sens Base 3.5 Total Protein 7.0 Albumin 4.0 Salicylates < 5.0 L Urine Opiates Screen Ur Buprenorphine Scrn Ur Oxycodone Screen Urine Methadone Screen Urine Fentanyl Screen Acetaminophen < 3 Ur Barbiturates Screen Ur Phencyclidine Scrn Ur Amphetamines Screen U Benzodiazepines Scrn Urine Cocaine Screen U Marijuana (THC) Screen 10/27/24 10/27/24 10/27/24 19:30 19:45 22:10 MCV MCH MCHC RDW Plt Count MPV Immature Gran % (Auto) Neut % (Auto) Lymph % (Auto) [place] % (Auto) Eos % (Auto) Baso % (Auto) Lymph # (Auto) [place] # (Auto) Eos # (Auto) Baso # (Auto) Abs Immat Gran (auto) Absolute Neuts (auto) Absolute Nucleated RBC Nucleated RBC % (auto) PT INR VBG pH 7.05 L* VBG pCO2 86 VBG pO2 168 VBG HCO3 24 VBG O2 Saturation 99.0 VBG Base Excess -8.2 Anion Gap Estim Creat Clear Calc Estimated GFR POC Glucose Random Glucose Lactic Acid Lactic Acid F/U @ 2Hr 1.7 Calcium Total Bilirubin AST ALT Alkaline Phosphatase Troponin I Hi Sens Base Total Protein Albumin Salicylates Urine Opiates Screen POSITIVE H Ur Buprenorphine Scrn Not Detected Ur Oxycodone Screen Positive H Urine Methadone Screen Positive H Urine Fentanyl Screen POSITIVE H Acetaminophen Ur Barbiturates Screen Not Detected Ur Phencyclidine Scrn Not Detected Ur Amphetamines Screen Not Detected U Benzodiazepines Scrn Not Detected Urine Cocaine Screen Not Detected U Marijuana (THC) Screen Not Detected 10/27/24 22:15 MCV MCH MCHC RDW Plt Count MPV Immature Gran % (Auto) Neut % (Auto) Lymph % (Auto) [place] % (Auto) Eos % (Auto) Baso % (Auto) Lymph # (Auto) [place] # (Auto) Eos # (Auto) Baso # (Auto) Abs Immat Gran (auto) Absolute Neuts (auto) Absolute Nucleated RBC Nucleated RBC % (auto) PT INR VBG pH 7.30 L VBG pCO2 49 VBG pO2 59 VBG HCO3 24 VBG O2 Saturation 83.0 VBG Base Excess -2.2 Anion Gap Estim Creat Clear Calc Estimated GFR POC Glucose Random Glucose Lactic Acid Lactic Acid F/U @ 2Hr Calcium Total Bilirubin AST ALT Alkaline Phosphatase Troponin I Hi Sens Base Total Protein Albumin Salicylates Urine Opiates Screen Ur Buprenorphine Scrn Ur Oxycodone Screen Urine Methadone Screen Urine Fentanyl Screen Acetaminophen Ur Barbiturates Screen Ur Phencyclidine Scrn Ur Amphetamines Screen U Benzodiazepines Scrn Urine Cocaine Screen U Marijuana (THC) Screen Assessment and Plan (1) Acute respiratory failure: Status: Acute (2) Drug overdose: Qualifiers: Encounter type: initial encounter Injury intent: undetermined intent Q ualified Code(s): T50.904A - Poisoning by unspecified drugs, medicaments and biological substances, undetermined, initial encounter Status: Acute (3) NSTEMI (non-ST elevated myocardial infarction): Status: Acute (4) Hypotension: Status: Acute (5) Toxic encephalopathy: Status: Acute Plan 59-year-old male with a history of polysubstance abuse? admitted to ICU for management? heroin and fentanyl overdose requiring ventilatory support Neuro:? ?toxic encephalopathy- ? From ? opiate/ fentanyl overdose. Head CT neg. Cont frequent neuro assessments Cardiac:? NSTEMI:? EKG with no ST elevation, ? troponin sensitivity 494.7,? repeat 1800.? Will initiate heparin drip.? Echo? in the morning ?Hypotension:? due to sedation for ventilatory management.? No evidence of septic shock.? Lactic is negative.? On vasopressors due to sedation medications. Wean off vasopressors as tolerated Pulmonary: ?Acute hypoxic respiratory: ? from opiate/ fentanyl overdose. Patient admitted to doing heroin.? ? Despite multiple doses of Narcan and Narcan drip patient requiring emergent intubation.? We will wean down. Wean off vent as tolerated.?? Renal:? ?No acute issues Endo:? GI: ? No acute issues ID:?? ?Leukocytosis:? patient does not have signs of acute infection, ? but did? have multiple episodes of vomiting,? high chance of developing aspiration pneumonitis.? Will start patient on Unasyn.? No evidence of septic shock.? Heme/Onc:? No acute issues. Psych: ? overdose: ? addiction medicine when patient is extubated Miscellaneous:? No acute issues. Prophylaxis:? IV Heparin?//GI: IVP pepcid ?Code status: Full code? Case discussed with Attending Dr Bell? Family updated by ED provider
[2024-10-27 22:39] LABS: zTroponin-I High Sen Reflex #2 494.7 ng/L (<3.5-35.0)
[2024-10-27] MEDS: DOPamine HCL/D5W 400 MG/250 ML PLAST..BAG 18.83 MG IVCONT (23:38)
[2024-10-28] VITALS (57 sets, daily range): BP systolic 65–152; BP diastolic 40–92; PULSE 55–78; RESP 17–31; TEMP 34.7–37.4; O2SAT 90–100; BMI 30.6
--- NOTE | 2024-10-28 | ECG_ITS ---
Test Reason : nstemi Blood Pressure : */* mmHG Vent. Rate : 71 BPM Atrial Rate : 61 BPM P-R Int : 158 ms QRS Dur : 104 ms QT Int : 388 ms P-R-T Axes : 51 52 88 degrees QTcB Int : 421 ms Sinus rhythm with sinus arrhythmia with frequent , and consecutive Premature ventricular complexes Cannot rule out Inferior infarct , age undetermined Abnormal ECG When compared with ECG of 27-Oct-2024 23:30, nsvt present Minimal criteria for Inferior infarct are now Present Referred By: Darion Sun Electronically Signed By: NUNU PEREZ
[2024-10-28] MEDS: propofoL 1,000 MG/100 ML VIAL 21.77 MG IVCONT (00:16)
[2024-10-28] MEDS: Albuterol Sulfate (0.083%) 2.5 MG/3 ML VIAL.NEB INHALE (00:20)
[2024-10-28] MEDS: Enoxaparin Sodium 40 MG/0.4 ML SYRINGE SUBCUT (00:20)
[2024-10-28] MEDS: Ampicillin Sodium/Sulbactam Na 3 GM in 0.9 % Sodium Chloride 100 ML IV ×5 (00:23→23:14)
[2024-10-28 01:52] LABS: Venous Blood Gas Refer to POC result
[2024-10-28 01:54] LABS: VBG Base Excess -4.2 mmol/L; VBG HCO3 20 mmol/L (22-26); VBG pCO2 35 mmHg; VBG pH 7.36 (7.32-7.43); VBG pO2 65 mmHg
[2024-10-28 01:56] LABS: Prothrombin Time 11.1 SEC (10.9-12.4)
[2024-10-28 02:10] LABS: B Type Natriuretic Peptide 37 pg/mL (<100)
[2024-10-28 02:27] LABS: Troponin-I High Sensitivity 1806.3 ng/L (<3.5-35.0)
[2024-10-28] MEDS: Heparin Sodium,Porcine/1/2NS 25,000 UNIT/250 ML IV.SOLN 12.77 UNIT IVCONT (03:01)
[2024-10-28] MEDS: propofoL 1,000 MG/100 ML VIAL 27.21 MG IVCONT ×2 (03:05→06:32)
[2024-10-28] MEDS: DOPamine HCL/D5W 400 MG/250 ML PLAST..BAG 37.65 MG IVCONT (05:34)
[2024-10-28 06:10] LABS: VBG Base Excess 1.5 mmol/L; VBG HCO3 26 mmol/L (22-26); VBG pCO2 41 mmHg; VBG pO2 63 mmHg
[2024-10-28 06:19] LABS: Venous Blood Gas Refer to POC result
[2024-10-28 06:19] LABS: Hematocrit 41.3 % (42.0-52.0); Hemoglobin 14.1 g/dl (14.0-18.0); Mean Corpuscular HGB Conc 34.1 g/dl (31.0-36.0); Platelet Count 265 X10*3/uL (160-400); Red Blood Count 4.86 X10*6/uL (4.60-5.80); White Blood Count 26.5 X10*3/uL (4.8-10.8)
[2024-10-28 06:43] LABS: Alanine Aminotransferase 115 U/L (0-40); Albumin Level 3.6 g/dL (3.5-5.0); Alkaline Phosphatase 89 U/L (39-117); Anion Gap 12 (12-20); Aspartate Amino Transferase 119 U/L (5-37); Bilirubin Total 0.5 mg/dL (0.0-1.0); Blood Urea Nitrogen 11 mg/dL (9-16); Calcium 8.4 mg/dL (8.4-10.2); Carbon Dioxide 25 mmol/L (22-29); Chloride 107 mmol/L (96-108); Cholesterol 194 mg/dL (<200); Creatinine Clr Calc Pharmacy 123.2; Estimated Glomerular Filt Rate > 60; Glucose Random 157 mg/dL (60-115); HDL Cholesterol 56 mg/dL (>40); LDL Cholesterol Calculated 124 mg/dL (<100); Magnesium 1.7 mg/dL (1.6-2.6); Phosphorus 1.5 mg/dL (2.7-4.5); Potassium 3.8 mmol/L (3.3-5.1); Sodium 140 mmol/L (135-145); Total Protein 6.4 g/dL (6.5-8.0); Triglycerides 70 mg/dL (<150)
--- NOTE | 2024-10-28 06:44 | PC.NURSE ---
Critical Care Nursing Note? Patient arrived on the unit at 2330.? Patient had levophed, propofol and fentanyl infusing at time on arrival.? Heart rate in the 40?s with frequent PVCs, EKG performed and Dopamine drip ordered and initiated. Dopamine titrated to heart rate goal while levophed was titrated down and off per Milton Garner NP.?
--- NOTE | 2024-10-28 07:00 | CA_ITS ---
Transthoracic Echocardiogram Patient (Last, First, Middle): Flavio Wood, Gender: Male Date of : 1965 Age: 59 Procedure Date: 10/28/2024 Procedure Type: Transthoracic Echocardiogram Location: ICU Height: 172.72 cm Weight: 91.17 kg BSA: 2.05 m2 Heart Rate: bpm BP: 104 / 63 mmHg [employer] Referring MD: Marisel Garner NP Symptoms: NSTEMI Study Quality: Fair, contrast ECG Rhythm: Sinus Conclusions: - The left ventricular systolic function is mildly decreased. The calculated ejection fraction is 45% by biplane method. - The basal inferior, basal inferoseptal, and basal inferolateral segments are akinetic. - No obvious valvular pathology seen on this study. Findings Procedure Information Contrast agent, definity, is being given per protocol without apparent complications. The study quality is limited by limitations of a portable exam and the presence of a ventilator. Left Ventricle Moderately increased left ventricular cavity size. There is normal left ventricular wall thickness. The left ventricular systolic function is mildly decreased. The calculated ejection fraction is 45% by biplane method. There is evidence of regional wall motion abnormalities. Evidence suggests grade I (mild) diastolic dysfunction. Wall Motion Rest Echo Findings The basal inferior, basal inferoseptal, and basal inferolateral segments are akinetic. Right Ventricle Mildly increased right ventricular cavity size. There is normal right ventricular systolic function. Atria Both atria are normal in size. Aortic Valve The aortic valve was not well visualized. There is no aortic valve stenosis. There is no aortic valve regurgitation. Mitral Valve The mitral valve appears normal. There is mild mitral valve regurgitation. There is no mitral valve stenosis. Pulmonic Valve The pulmonic valve is likely normal. Tricuspid Valve There is trace tricuspid valve regurgitation. The right ventricular systolic pressure is not calculated. Great Vessels The aorta was not well visualized. There is mild dilatation of the sinuses of Valsalva measuring 4.59 cm. Venous The inferior vena cava is dilated and collapses less than 50% with inspiration. (on ventilator). Pericardium/Pleural There is no evidence of pericardial effusion. Prior Study Comparison No prior study available for comparison. Recommendations, Care & Conclusions No obvious valvular pathology seen on this study. Measurements 2D Linear Measurements IVSd: 0.94 0.6-0.9/0.6-1.0 cm LVIDd: 6.25 3.9-5.3/4.2-5.9 cm LVIDd Index: 3.05 2.4-3.2/2.2-3.1 cm/m2 LVIDs: 5.65 2.0-3.6 cm LVPWd: 0.71 0.7-1.1 cm LA Diam: 3.30 2.7-3.8/3.0-4.0 cm LAIDs Index: 1.61 1.5-2.3 cm/m2 LV Mass: 258.66 67-162/88-224 g LV Mass Index: 126.18 43-95/49-115 g/m2 LVOT Diam: 2.50 3.0+(-)1.3 cm 2D Systolic Function EF 4C: 47.10 >55% EF 2C: 49.80 >55% EF BiP: 44.60 >55% Mitral Valve MV Pk E: 0.60 MV PK A: 1.07 MV Decel Time: 303.00 E/A: 0.60 E'Lateral: 4.90 E'Medial: 4.57 E/E' Med: 13.10 E/E' Lat: 12.20 PHT: 89.00 MVA PHT: 2.47 Decel Kaufman: 1.98 Aortic Valve AoV Pk Hilario: 1.48 AoV Mn Hilario: 1.02 AoV VTI: 0.32 AoV Pk Grad: 9.00 Aov Mn Grad: 5.00 CARLOTA Cont.VTI: 3.10 LVOT LVOT Pk Hilario: 1.03 LVOT Mn Hilario: 0.71 LVOT VTI: 0.20 LVOT Pk Grad: 4.00 LVOT Mn Grad: 2.00 LVOT Diam: 2.50 LVOT Area: 4.91 Diastolic Function MV Pk E: 0.60 MV Pk A: 1.07 E/A: 0.60 E'Medial: 4.57 E/E' Med: 13.10 E' Laterial: 4.90 E/E' Lat: 12.20 Right Ventricle TAPSE (mm): 29.10 TVS' Hilario: 14.50 Great Vessels Aorta Sinus of Valsalva: 4.59 2.0-3.[address] Ridge: 2.84 1.7-3.4 cm Updated in Other Vendor System with Status of Final Lawrence Leary MD electronically signed on 10/28/2024 4:54:37 PM with status of Final
[2024-10-28 07:13] LABS: Atypical Lymph Absolute Manual 0.3 x10*3/uL; Atypical Lymphs Percent Manual 1 % (0-6); Band Neutrophils Percent 5 % (3-5); Lymphocytes Absolute Manual 1.3 X10*3/uL (1.2-4.9); Lymphocytes Percent Manual 5 % (20-40); Monocytes Absolute Manual 1.3 X10*3/uL (0.1-1.2); Monocytes Percent Manual 5 % (2-11); Neutrophils Absolute Manual 23.3 X10*3/uL (2.0-8.3); Neutrophils Percent Manual 83 % (45-73)
[2024-10-28 07:14] LABS: Large Platelet PRESENT; Platelet Estimate NORMAL (NORMAL); Platelet Morphology Comment NOTED; RBC Morphology NOTED
[2024-10-28 07:16] LABS: Burr Cells 1+ (0-2) /OIF
[2024-10-28] MEDS: Albuterol/Iprat 2.5/0.5MG 3 ML AMPUL.NEB INHALE ×3 (07:31→19:55)
[2024-10-28] MEDS: Famotidine/PF 20 MG/2 ML VIAL IVPUSH (07:36)
[2024-10-28] MEDS: Potassium Phosphate/NS 15 MMOL/250 ML PLAST..BAG 62.5 MMOL IV (07:36)
[2024-10-28] MEDS: Chlorhexidine Gluc Oral Rinse 15 ML MOUTHWASH BUCCAL ×2 (07:36→14:19)
--- NOTE | 2024-10-28 08:33 | P.PNCC_ITS ---
Subjective Subjective Date of Service: 10/28/24 Interval History: On ventilator support this morning Critical Care Time (minutes): 35 Physical Exam 2 Vital Signs: Vital Signs: Last Vital Signs Temp 98.4 F 10/28/24 08:00 Pulse 71 10/28/24 08:00 Resp 20 10/28/24 08:00 BP 102/60 10/28/24 08:00 Pulse Ox 93 10/28/24 08:00 O2 Del Method Mechanical Ventil ation 10/28/24 08:00 O2 Flow Rate 15 10/27/24 20:32 FiO2 60 10/28/24 08:00 BMI result Body Mass Index 30.6 General: Patient acute distress, ill appearing and tired appearing Nutritional Appearance: well nourished and overweight Eyes: appearance normal, both eyes and all related structures; Alignment and Position: alignment normal and position normal Neck: No lymphadenopathy, no thyromegaly Resp: bilateral air entry equal, occasional added sounds present Cardio: Regular rate, regular rhythm; Heart sounds: S1 normal heart sound present and S2 normal heart sound present GI: soft, nontender, no guarding, no hepatosplenomegaly : bladder normal to inspection, bladder normal to palpation, no renal angle tenderness Skin: no rashes or lesions noted and elasticity normal Neuro: [place] duodenal examination as patient is on sedation Objective Data Labs 10/28/24 06:04 10/28/24 06:04 Labs: Laboratory Results - last 24 hr 10/27/24 10/27/24 10/27/24 18:50 19:00 19:01 WBC 11.4 H RBC 4.95 Hgb 14.6 Hct 42.3 MCV 85.5 MCH 29.5 MCHC 34.5 RDW 13.2 Plt Count 271 MPV 11.0 Immature Gran % (Auto) 0.4 Neut % (Auto) 56.5 Lymph % (Auto) 29.2 [place] % (Auto) 8.5 Eos % (Auto) 4.8 H Baso % (Auto) 0.6 Lymph # (Auto) 3.3 [place] # (Auto) 1.0 Eos # (Auto) 0.6 H Baso # (Auto) 0.1 Abs Immat Gran (auto) 0.05 H Absolute Neuts (auto) 6.4 Absolute Nucleated RBC 0.000 Nucleated RBC % (auto) 0.0 Neutrophils % (Manual) Band Neutrophils % Lymphocytes % (Manual) Atypical Lymphs % (Man) Monocytes % (Manual) Abs Neuts (Manual) Lymphocytes # (Manual) Atyp Lymphs # (Manual) Monocytes # (Manual) Platelet Estimate Large Platelets Plt Morphology Comment RBC Morphology [place] Cells PT 11.3 INR 1.0 APTT VBG pH VBG pCO2 VBG pO2 VBG HCO3 VBG O2 Saturation VBG Base Excess Sodium 139 Potassium 3.6 Chloride 107 Carbon Dioxide 21 L Anion Gap 15 BUN 15 Creatinine 0.67 Estim Creat Clear Calc 126.6 Estimated GFR > 60 POC Glucose 160 H Random Glucose 171 H Lactic Acid 2.1 H* Lactic Acid F/U @ 2Hr Calcium 9.3 Phosphorus Magnesium Total Bilirubin 0.3 AST 22 ALT 18 Alkaline Phosphatase 83 Total Creatine Kinase 113 Troponin I High Sens Troponin I Hi Sens Base 3.5 Troponin I Hi Sens 2 Hr B-Natriuretic Peptide Total Protein 7.0 Albumin 4.0 Triglycerides Cholesterol LDL Cholesterol, Calc HDL Cholesterol Salicylates < 5.0 L Urine Opiates Screen Ur Buprenorphine Scrn Ur Oxycodone Screen Urine Methadone Screen Urine Fentanyl Screen Acetaminophen < 3 Ur Barbiturates Screen Ur Phencyclidine Scrn Ur Amphetamines Screen U Benzodiazepines Scrn Urine Cocaine Screen U Marijuana (THC) Screen 10/27/24 10/27/24 10/27/24 19:30 19:45 22:10 WBC RBC Hgb Hct MCV MCH MCHC RDW Plt Count MPV Immature Gran % (Auto) Neut % (Auto) Lymph % (Auto) [place] % (Auto) Eos % (Auto) Baso % (Auto) Lymph # (Auto) [place] # (Auto) Eos # (Auto) Baso # (Auto) Abs Immat Gran (auto) Absolute Neuts (auto) Absolute Nucleated RBC Nucleated RBC % (auto) Neutrophils % (Manual) Band Neutrophils % Lymphocytes % (Manual) Atypical Lymphs % (Man) Monocytes % (Manual) Abs Neuts (Manual) Lymphocytes # (Manual) Atyp Lymphs # (Manual) Monocytes # (Manual) Platelet Estimate Large Platelets Plt Morphology Comment RBC Morphology [place] Cells PT INR APTT VBG pH 7.05 L* VBG pCO2 86 VBG pO2 168 VBG HCO3 24 VBG O2 Saturation 99.0 VBG Base Excess -8.2 Sodium Potassium Chloride Carbon Dioxide Anion Gap BUN Creatinine Estim Creat Clear Calc Estimated GFR POC Glucose Random Glucose Lactic Acid Lactic Acid F/U @ 2Hr 1.7 Calcium Phosphorus Magnesium Total Bilirubin AST ALT Alkaline Phosphatase Total Creatine Kinase Troponin I High Sens Troponin I Hi Sens Base Troponin I Hi Sens 2 Hr 494.7 H* B-Natriuretic Peptide Total Protein Albumin Triglycerides Cholesterol LDL Cholesterol, Calc HDL Cholesterol Salicylates Urine Opiates Screen POSITIVE H Ur Buprenorphine Scrn Not Detected Ur Oxycodone Screen Positive H Urine Methadone Screen Positive H Urine Fentanyl Screen POSITIVE H Acetaminophen Ur Barbiturates Screen Not Detected Ur Phencyclidine Scrn Not Detected Ur Amphetamines Screen Not Detected U Benzodiazepines Scrn Not Detected Urine Cocaine Screen Not Detected U Marijuana (THC) Screen Not Detected 10/27/24 10/28/24 10/28/24 22:15 01:42 01:50 WBC RBC Hgb Hct MCV MCH MCHC RDW Plt Count MPV Immature Gran % (Auto) Neut % (Auto) Lymph % (Auto) [place] % (Auto) Eos % (Auto) Baso % (Auto) Lymph # (Auto) [place] # (Auto) Eos # (Auto) Baso # (Auto) Abs Immat Gran (auto) Absolute Neuts (auto) Absolute Nucleated RBC Nucleated RBC % (auto) Neutrophils % (Manual) Band Neutrophils % Lymphocytes % (Manual) Atypical Lymphs % (Man) Monocytes % (Manual) Abs Neuts (Manual) Lymphocytes # (Manual) Atyp Lymphs # (Manual) Monocytes # (Manual) Platelet Estimate Large Platelets Plt Morphology Comment RBC Morphology [place] Cells PT 11.1 INR 1.0 APTT 36.0 VBG pH 7.30 L 7.36 VBG pCO2 49 35 VBG pO2 59 65 VBG HCO3 24 20 L VBG O2 Saturation 83.0 92.0 VBG Base Excess -2.2 -4.2 Sodium Potassium Chloride Carbon Dioxide Anion Gap BUN Creatinine Estim Creat Clear Calc Estimated GFR POC Glucose Random Glucose Lactic Acid Lactic Acid F/U @ 2Hr Calcium Phosphorus Magnesium Total Bilirubin AST ALT Alkaline Phosphatase Total Creatine Kinase Troponin I High Sens 1806.3 H* Troponin I Hi Sens Base Troponin I Hi Sens 2 Hr B-Natriuretic Peptide 37 Total Protein Albumin Triglycerides Cholesterol LDL Cholesterol, Calc HDL Cholesterol Salicylates Urine Opiates Screen Ur Buprenorphine Scrn Ur Oxycodone Screen Urine Methadone Screen Urine Fentanyl Screen Acetaminophen Ur Barbiturates Screen Ur Phencyclidine Scrn Ur Amphetamines Screen U Benzodiazepines Scrn Urine Cocaine Screen U Marijuana (THC) Screen 10/28/24 10/28/24 06:04 06:06 WBC 26.5 H RBC 4.86 Hgb 14.1 Hct 41.3 L MCV 85.0 MCH 29.0 MCHC 34.1 RDW 13.0 Plt Count 265 MPV 11.0 Immature Gran % (Auto) Cancelled Neut % (Auto) Cancelled Lymph % (Auto) Cancelled [place] % (Auto) Cancelled Eos % (Auto) Cancelled Baso % (Auto) Cancelled Lymph # (Auto) Cancelled [place] # (Auto) Cancelled Eos # (Auto) Cancelled Baso # (Auto) Cancelled Abs Immat Gran (auto) Cancelled Absolute Neuts (auto) Cancelled Absolute Nucleated RBC 0.000 Nucleated RBC % (auto) 0.0 Neutrophils % (Manual) 83 H Band Neutrophils % 5 Lymphocytes % (Manual) 5 L Atypical Lymphs % (Man) 1 Monocytes % (Manual) 5 Abs Neuts (Manual) 23.3 H Lymphocytes # (Manual) 1.3 Atyp Lymphs # (Manual) 0.3 Monocytes # (Manual) 1.3 H Platelet Estimate NORMAL Large Platelets PRESENT Plt Morphology Comment NOTED RBC Morphology NOTED [place] Cells 1+ (0-2) PT INR APTT VBG pH 7.40 VBG pCO2 41 VBG pO2 63 VBG HCO3 26 VBG O2 Saturation 91.0 VBG Base Excess 1.5 Sodium 140 Potassium 3.8 Chloride 107 Carbon Dioxide 25 Anion Gap 12 BUN 11 Creatinine 0.69 Estim Creat Clear Calc 123.2 Estimated GFR > 60 POC Glucose Random Glucose 157 H Lactic Acid Lactic Acid F/U @ 2Hr Calcium 8.4 D Phosphorus 1.5 L Magnesium 1.7 Total Bilirubin 0.5 AST 119 H ALT 115 H Alkaline Phosphatase 89 Total Creatine Kinase Troponin I High Sens Troponin I Hi Sens Base Troponin I Hi Sens 2 Hr B-Natriuretic Peptide Total Protein 6.4 L Albumin 3.6 Triglycerides 70 Cholesterol 194 LDL Cholesterol, Calc 124 H HDL Cholesterol 56 Salicylates Urine Opiates Screen Ur Buprenorphine Scrn Ur Oxycodone Screen Urine Methadone Screen Urine Fentanyl Screen Acetaminophen Ur Barbiturates Screen Ur Phencyclidine Scrn Ur Amphetamines Screen U Benzodiazepines Scrn Urine Cocaine Screen U Marijuana (THC) Screen Progress Note: A&P Assessment and plan (1) Hypotension: Status: Acute (2) Elevated troponin: Status: Acute (3) NSTEMI (non-ST elevated myocardial infarction): Status: Acute (4) Toxic encephalopathy: Status: Acute (5) Respiratory failure: Status: Acute (6) Acute respiratory failure: Status: Acute (7) Drug overdose: Status: Acute Plan Neuro: Acute encephalopathy possibly due to toxic encephalopathy from drug overdose, UDS positive for fentanyl, opiates; admitted to have used 2 bags of heroin before passing out On propofol for sedation, as needed fentanyl for analgesia; will wean sedation for weaning from ventilator Close neurological status monitoring in the ICU every hour Cardiac: Cardiogenic Shock: Possibly secondary to positive pressure ventilation vs NSTEMI. Will get TTE. On Levophed support, titrate Levophed to keep map above 65 mm Hg NSTEMI: Possibly secondary to drug overdose, troponin elevated from 400 to 1800s- we will trend. We will repeat an EKG Continue heparin drip Respiratory: Acute hypoxemic respiratory failure due to aspiration pneumonia Currently on ventilator support On PRVC mode FiO2 40%, PEEP 5, TV 410, RR 20, we will wean sedation as tolerated and place the patient on pressor support trials if he does well Peak pressures and plateau pressures are under the curve Ventilator management bundle with head end elevation, aspiration precaution, chlorhexidine mouthwash, daily awakening trials, daily spontaneous breathing trials GI: We will start on tube feeds Transaminitis: Possibly secondary to drug overdose We will do a bedside echo Renal: We will closely monitor I's and O's Avoid nephrotoxic medications Acute hypophosphatemia: will replace as per protocol Heme: Chronic anemia, closely monitor H&H, transfuse for hemoglobin less than 7 grams/deciliter Endocrine: Blood sugars under control Sliding scale insulin as needed Infectious disease: Pancultures negative so far On empiric ampicillin sulbactam Musculoskeletal: Decubitus ulcer prevention protocol Lines: Peripheral Prophylaxis: Heparin, famotidine Quality Stroke Does the patient have a stroke diagnosis?: No VTE Prior VTE?: No VTE Risk Level:: Medical - moderate - high VTE Device Contraindication: N/A - Device Ordered VTE Drug Contraindication: N/A - Med Ordered
[2024-10-28 09:32] LABS: PTT Heparin Drip 72.8 SEC (53-77.9)
[2024-10-28] MEDS: fentaNYL citrate/NS 1,000 MCG/100 ML PLAST..BAG 7.5 MCG IVCONT (09:37)
--- NOTE | 2024-10-28 09:38 | MHC.CLN ---
RE: CONSULT PT IS INTUBATED AND SEDATED PLAN TO START TF TODAY RECOMMEND PROMOTE AT MAX GOAL RATE 50ML/HR WITH 240ML FWF Q 6 HRS TO PROVIDE 1200KCALS (1775KCALS WITH SEDATION; 23KCALS/KG BASED ON CMW), 75G PROTEIN (1.0G/KG), 1967ML TOTAL FREE WATER FROM FORMULA AND FLUSHES (26ML/KG) MONITOR TOLERANCE AND LYTES SEE FULL NUTRITION ASSESSMENT
--- NOTE | 2024-10-28 10:07 | PHA.MEDREC ---
Addendum entered by Sowmya Austin RPh 10/28/24 10:24: reviewed by [facility]. Original Note: Pharmacy Consult ? Medication Reconciliation Pharmacy has completed the medication reconciliation. Spoke to patients HCP on file [place] to confirm med list. Nolaidys states Patient was on a blood pressure medication a few months back , however patients discontinued. Patient only takes Methadone 100 mg form a Methadone clinic [facility] . Maybe [place] she doesn't know the name. 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
[2024-10-28 10:15] LABS: Troponin-I High Sensitivity 4939.2 ng/L (<3.5-35.0)
[2024-10-28] MEDS: propofoL 1,000 MG/100 ML VIAL 10.88 MG IVCONT (10:33)
--- NOTE | 2024-10-28 12:05 | P.CONCA_ITS ---
History of Present Illness History of Present Illness Date of Service: 10/28/24 Chief complaint: Ovedose Narrative: This is a cardiology consultation regarding elevated troponins. Patient with a history of polysubstance abuse currently on methadone. Apparently came to the ER for concern overdose. According to documentation, patient was eating dinner many passed out and vomited. EMS said reported pinpoint pupils. He was bradycardic in the 30s and 40s. Narcan was administered. When the patient woke up, he had admitted taking 2 bags of heroin. In the ER, patient was apparently lethargic. Required multiple dose of IV Narcan and then put on Narcan drip. Then intubated. Per blood gases, it seems he was acidotic. Tox screen was positive for opiates, oxycodone, methadone, fentanyl. In this context, troponins were checked and they were abnormal. Hence we are consulted. Patient is still intubated and not able to give any history. Review of Systems 2 Review of Systems: Unable to obtain as the patient is still intubated. [facility] Family History Pertinent family history: Unable to obtain Social History Social History (System 04/14/22 @ 08:21 by Nicole Rodriguez) Household Members: Significant Other and Children Housing: Apartment Do you presently have visiting nurse or other home services: No Patient Tobacco Use Status: Tobacco use Unknown Tobacco use type: Cigarette Cigarettes Per Day: 20 Smoked in Last 30 Days: Yes Patient Given Instructions on How to Stop Smoking: No (intubated/sedated) Use of substances other than those prescribed or required for medical reasons: Yes Substance Use Type: Heroin and Opiates Last Used Substance: Just Prior to Admission Currently Displaying Signs/Symptoms of Drug Intoxication Withdrawal: No Advance Directives: No Advance Directives Information Provided: No Recently lost weight without trying: Unsure Meds Allergies Allergy/AdvReac Type Severity Reaction Status Date / Time No Known Allergies Allergy Verified 10/27/24 18:54 Active Medications: Current Medications Albuterol Sulfate (Albuterol Sulfate (0.083%) 2.5 Mg/3 Ml Vial.Neb) 2.5 mg INHALE Q4H PRN PRN Reason: Wheezing Last Admin: 10/28/24 00:20 Dose: 2.5 mg Albuterol/Ipratropium (Albuterol/Iprat 2.5/0.5mg 3 Ml Ampul.Neb) 3 ml INHALE RQ6H WHILE AWAKE CINDI Last Admin: 10/28/24 07:31 Dose: 3 ml Chlorhexidine Gluconate (Chlorhexidine Gluc Oral Rinse 15 Ml Mouthwash) 15 ml BUCCAL TID CINDI Last Admin: 10/28/24 07:36 Dose: 15 ml Famotidine (Famotidine/Pf 20 Mg/2 Ml Vial) 20 mg IVPUSH DAILY [facility] Last Admin: 10/28/24 07:36 Dose: 20 mg Heparin Sodium (Porcine) (Heparin Sodium,Porcine 5,000 Unit/Ml Vial) 3,600 unit 40 unit/kg (3600 unit) IVPUSH PROTOCOL BOLUS PRN; Protocol PRN Reason: 40 unit/kg - Heparin Protocol Heparin Sodium (Porcine) (Heparin Sodium,Porcine 5,000 Unit/Ml Vial) 7,300 unit 80 unit/kg (7300 unit) IVPUSH PROTOCOL BOLUS PRN; Protocol PRN Reason: 80 unit/kg - Heparin Protocol Propofol (Diprivan) 1,000 mg in 100 mls @ 0 mls/hr IVCONT .Q0M [facility]; Protocol Last Titration: 10/28/24 11:54 Dose: 10 mcg/kg/min, 5.44 mls/hr Fentanyl (Sublimaze/Ns) 1,000 mcg in 100 mls @ 0 mls/hr IVCONT .Q0M [facility]; Protocol Last Titration: 10/28/24 11:54 Dose: 50 mcg/hr, 5 mls/hr Norepinephrine Bitartrate (Levophed) 8 mg in 250 mls @ 0 mls/hr IVCONT .Q0M [facility]; Protocol Last Titration: 10/28/24 11:55 Dose: 0.19 mcg/kg/min, 32.31 mls/hr Ampicillin Sodium/Sulbactam (Sodium 3 gm/ Sodium Chloride) 100 mls @ 200 mls/hr IV Q6H [facility] Last Infusion: 10/28/24 11:08 Dose: Infused Dopamine HCl/Dextrose (Dopamine Hcl/D5w) 400 mg in 250 mls @ 0 mls/hr IVCONT .Q0M [facility]; Protocol Last Titration: 10/28/24 08:40 Dose: 0 mcg/kg/min, 0 mls/hr Heparin Sodium/Sodium Chloride (Heparin Sodium,Porcine/1/2ns) 25,000 unit in 250 mls @ 0 mls/hr IVCONT .Q0M CINDI; Protocol Last Titration: 10/28/24 09:30 Dose: 14 units/kg/hr, 12.77 mls/hr Magnesium Sulfate (Magnesium Sulfate/H2o) 2 gm in 50 mls @ 25 mls/hr IV ONCE ONE Stop: 10/28/24 13:54 Potassium Chloride (Potassium Chloride/H20) 10 meq in 100 mls @ 100 mls/hr IV Q1H [facility] Stop: 10/28/24 15:59 Naloxone HCl (Naloxone Hcl 0.4 Mg/Ml Vial) 0.2 mg IVPUSH Q2M PRN PRN Reason: Excessive sedation or RR < 8 Home Medications ?Medication ?Instructions ?Recorded ?Confirmed ?Last Taken ?Type methadone 10 mg tablet 100 mg PO DAILY 10/28/24 10/27/24 History Physical Exam 2 Vital Signs: Vital Signs: Last Vital Signs Temp 98.4 F 10/28/24 08:00 Pulse 68 10/28/24 11:55 Resp 18 10/28/24 11:00 BP 108/74 10/28/24 11:55 Pulse Ox 97 10/28/24 11:10 O2 Del Method Mechanical Ventil ation 10/28/24 11:00 O2 Flow Rate 15 10/27/24 20:32 FiO2 30 10/28/24 11:10 BMI result Body Mass Index 30.6 Const: Other: Intubated, sedated HEENT: Other: Unremarkable Head: Yes normal to inspection Neck: Neck: Yes normal visual inspection Chest: Chest palpation & inspection: normal inspection of the chest Resp: Auscultation: diminished lung sounds Cardio: Palpation: normal PMI Heart sounds: S1 normal heart sound present, S2 normal heart sound present, no gallops, no murmurs and no rubs GI: Palpation (GI): Soft to palpation Back/Spine/Pelvis: Other: unremarkable Skin: General skin exam: no rashes or lesions noted Neuro: Other: Intubated, cannot evaluate Extrem: General: Yes normal to inspection Psych: Other: On sedation Mental Status: mental status grossly abnormal Objective Labs and Meds 10/28/24 06:04 10/28/24 06:04 Lab results: Laboratory Results - last 24 hr 10/27/24 10/27/24 10/27/24 18:50 19:00 19:01 WBC 11.4 H RBC 4.95 Hgb 14.6 Hct 42.3 MCV 85.5 MCH 29.5 MCHC 34.5 RDW 13.2 Plt Count 271 MPV 11.0 Immature Gran % (Auto) 0.4 Neut % (Auto) 56.5 Lymph % (Auto) 29.2 Orange % (Auto) 8.5 Eos % (Auto) 4.8 H Baso % (Auto) 0.6 Lymph # (Auto) 3.3 Orange # (Auto) 1.0 Eos # (Auto) 0.6 H Baso # (Auto) 0.1 Abs Immat Gran (auto) 0.05 H Absolute Neuts (auto) 6.4 Absolute Nucleated RBC 0.000 Nucleated RBC % (auto) 0.0 Neutrophils % (Manual) Band Neutrophils % Lymphocytes % (Manual) Atypical Lymphs % (Man) Monocytes % (Manual) Abs Neuts (Manual) Lymphocytes # (Manual) Atyp Lymphs # (Manual) Monocytes # (Manual) Platelet Estimate Large Platelets Plt Morphology Comment RBC Morphology [place] Cells PT 11.3 INR 1.0 APTT aPTT Heparin Protocol VBG pH VBG pCO2 VBG pO2 VBG HCO3 VBG O2 Saturation VBG Base Excess Sodium 139 Potassium 3.6 Chloride 107 Carbon Dioxide 21 L Anion Gap 15 BUN 15 Creatinine 0.67 Estim Creat Clear Calc 126.6 Estimated GFR > 60 POC Glucose 160 H Random Glucose 171 H Lactic Acid 2.1 H* Lactic Acid F/U @ 2Hr Calcium 9.3 Phosphorus Magnesium Total Bilirubin 0.3 AST 22 ALT 18 Alkaline Phosphatase 83 Total Creatine Kinase 113 Troponin I High Sens Troponin I Hi Sens Base 3.5 Troponin I Hi Sens 2 Hr B-Natriuretic Peptide Total Protein 7.0 Albumin 4.0 Triglycerides Cholesterol LDL Cholesterol, Calc HDL Cholesterol Salicylates < 5.0 L Urine Opiates Screen Ur Buprenorphine Scrn Ur Oxycodone Screen Urine Methadone Screen Urine Fentanyl Screen Acetaminophen < 3 Ur Barbiturates Screen Ur Phencyclidine Scrn Ur Amphetamines Screen U Benzodiazepines Scrn Urine Cocaine Screen U Marijuana (THC) Screen 10/27/24 10/27/24 10/27/24 19:30 19:45 22:10 WBC RBC Hgb Hct MCV MCH MCHC RDW Plt Count MPV Immature Gran % (Auto) Neut % (Auto) Lymph % (Auto) Orange % (Auto) Eos % (Auto) Baso % (Auto) Lymph # (Auto) Orange # (Auto) Eos # (Auto) Baso # (Auto) Abs Immat Gran (auto) Absolute Neuts (auto) Absolute Nucleated RBC Nucleated RBC % (auto) Neutrophils % (Manual) Band Neutrophils % Lymphocytes % (Manual) Atypical Lymphs % (Man) Monocytes % (Manual) Abs Neuts (Manual) Lymphocytes # (Manual) Atyp Lymphs # (Manual) Monocytes # (Manual) Platelet Estimate Large Platelets Plt Morphology Comment RBC Morphology [place] Cells PT INR APTT aPTT Heparin Protocol VBG pH 7.05 L* VBG pCO2 86 VBG pO2 168 VBG HCO3 24 VBG O2 Saturation 99.0 VBG Base Excess -8.2 Sodium Potassium Chloride Carbon Dioxide Anion Gap BUN Creatinine Estim Creat Clear Calc Estimated GFR POC Glucose Random Glucose Lactic Acid Lactic Acid F/U @ 2Hr 1.7 Calcium Phosphorus Magnesium Total Bilirubin AST ALT Alkaline Phosphatase Total Creatine Kinase Troponin I High Sens Troponin I Hi Sens Base Troponin I Hi Sens 2 Hr 494.7 H* B-Natriuretic Peptide Total Protein Albumin Triglycerides Cholesterol LDL Cholesterol, Calc HDL Cholesterol Salicylates Urine Opiates Screen POSITIVE H Ur Buprenorphine Scrn Not Detected Ur Oxycodone Screen Positive H Urine Methadone Screen Positive H Urine Fentanyl Screen POSITIVE H Acetaminophen Ur Barbiturates Screen Not Detected Ur Phencyclidine Scrn Not Detected Ur Amphetamines Screen Not Detected U Benzodiazepines Scrn Not Detected Urine Cocaine Screen Not Detected U Marijuana (THC) Screen Not Detected 10/27/24 10/28/24 10/28/24 22:15 01:42 01:50 WBC RBC Hgb Hct MCV MCH MCHC RDW Plt Count MPV Immature Gran % (Auto) Neut % (Auto) Lymph % (Auto) Orange % (Auto) Eos % (Auto) Baso % (Auto) Lymph # (Auto) [place] # (Auto) Eos # (Auto) Baso # (Auto) Abs Immat Gran (auto) Absolute Neuts (auto) Absolute Nucleated RBC Nucleated RBC % (auto) Neutrophils % (Manual) Band Neutrophils % Lymphocytes % (Manual) Atypical Lymphs % (Man) Monocytes % (Manual) Abs Neuts (Manual) Lymphocytes # (Manual) Atyp Lymphs # (Manual) Monocytes # (Manual) Platelet Estimate Large Platelets Plt Morphology Comment RBC Morphology [place] Cells PT 11.1 INR 1.0 APTT 36.0 aPTT Heparin Protocol VBG pH 7.30 L 7.36 VBG pCO2 49 35 VBG pO2 59 65 VBG HCO3 24 20 L VBG O2 Saturation 83.0 92.0 VBG Base Excess -2.2 -4.2 Sodium Potassium Chloride Carbon Dioxide Anion Gap BUN Creatinine Estim Creat Clear Calc Estimated GFR POC Glucose Random Glucose Lactic Acid Lactic Acid F/U @ 2Hr Calcium Phosphorus Magnesium Total Bilirubin AST ALT Alkaline Phosphatase Total Creatine Kinase Troponin I High Sens 1806.3 H* Troponin I Hi Sens Base Troponin I Hi Sens 2 Hr B-Natriuretic Peptide 37 Total Protein Albumin Triglycerides Cholesterol LDL Cholesterol, Calc HDL Cholesterol Salicylates Urine Opiates Screen Ur Buprenorphine Scrn Ur Oxycodone Screen Urine Methadone Screen Urine Fentanyl Screen Acetaminophen Ur Barbiturates Screen Ur Phencyclidine Scrn Ur Amphetamines Screen U Benzodiazepines Scrn Urine Cocaine Screen U Marijuana (THC) Screen 10/28/24 10/28/24 10/28/24 06:04 06:06 09:06 WBC 26.5 H RBC 4.86 Hgb 14.1 Hct 41.3 L MCV 85.0 MCH 29.0 MCHC 34.1 RDW 13.0 Plt Count 265 MPV 11.0 Immature Gran % (Auto) Cancelled Neut % (Auto) Cancelled Lymph % (Auto) Cancelled Orange % (Auto) Cancelled Eos % (Auto) Cancelled Baso % (Auto) Cancelled Lymph # (Auto) Cancelled [place] # (Auto) Cancelled Eos # (Auto) Cancelled Baso # (Auto) Cancelled Abs Immat Gran (auto) Cancelled Absolute Neuts (auto) Cancelled Absolute Nucleated RBC 0.000 Nucleated RBC % (auto) 0.0 Neutrophils % (Manual) 83 H Band Neutrophils % 5 Lymphocytes % (Manual) 5 L Atypical Lymphs % (Man) 1 Monocytes % (Manual) 5 Abs Neuts (Manual) 23.3 H Lymphocytes # (Manual) 1.3 Atyp Lymphs # (Manual) 0.3 Monocytes # (Manual) 1.3 H Platelet Estimate NORMAL Large Platelets PRESENT Plt Morphology Comment NOTED RBC Morphology NOTED [place] Cells 1+ (0-2) PT INR APTT aPTT Heparin Protocol 72.8 VBG pH 7.40 VBG pCO2 41 VBG pO2 63 VBG HCO3 26 VBG O2 Saturation 91.0 VBG Base Excess 1.5 Sodium 140 Potassium 3.8 Chloride 107 Carbon Dioxide 25 Anion Gap 12 BUN 11 Creatinine 0.69 Estim Creat Clear Calc 123.2 Estimated GFR > 60 POC Glucose Random Glucose 157 H Lactic Acid Lactic Acid F/U @ 2Hr Calcium 8.4 D Phosphorus 1.5 L Magnesium 1.7 Total Bilirubin 0.5 AST 119 H ALT 115 H Alkaline Phosphatase 89 Total Creatine Kinase Troponin I High Sens 4939.2 H* D Troponin I Hi Sens Base Troponin I Hi Sens 2 Hr B-Natriuretic Peptide Total Protein 6.4 L Albumin 3.6 Triglycerides 70 Cholesterol 194 LDL Cholesterol, Calc 124 H HDL Cholesterol 56 Salicylates Urine Opiates Screen Ur Buprenorphine Scrn Ur Oxycodone Screen Urine Methadone Screen Urine Fentanyl Screen Acetaminophen Ur Barbiturates Screen Ur Phencyclidine Scrn Ur Amphetamines Screen U Benzodiazepines Scrn Urine Cocaine Screen U Marijuana (THC) Screen ECG Interpretation: In the initial EKG, sinus bradycardia, 53/Min; PVC. Corrected QT is 426 milliseconds. Follow-up EKGs shows similar findings. In the most recent EKG, there is suggestion of U-waves. Corrected QT is still within range. Four beat run of monomorphic NSVT. On telemetry, there is evidence of frequent PVCs and short ventricular runs. One episode at around 19:30 last night suggestive of polymorphic VT. Imaging Radiologist's impression: Impressions Chest X-Ray 10/28/24 07:13 IMPRESSION: The nasogastric tube terminates in the stomach. Electronically signed by: Kurtis Lazaro MD 10/28/2024 08:15 AM EDT RP Assessment and Plan (1) Drug overdose: Qualifiers: Encounter type: initial encounter Injury intent: undetermined intent Q ualified Code(s): T50.904A - Poisoning by unspecified drugs, medicaments and biological substances, undetermined, initial encounter Status: Acute (2) Acute respiratory failure: Status: Acute (3) Toxic encephalopathy: Status: Acute (4) NSTEMI (non-ST elevated myocardial infarction): Status: Acute (5) Ventricular tachycardia: Status: Acute Plan High sensitivity troponin levels are 594, 1806 and 4939. Echocardiogram is pending. Overall, drug overdose, probably demand related NSTEMI, ventricular tachycardia related to drugs as well as possible underlying cardiomyopathy/coronary disease. He is still intubated. Currently, intensive care as required. IV heparin drip. Aspirin. He is already bradycardic and hence may not be able to use beta-blockers. Correct potassium and magnesium aggressively. Potassium to be more than 4. Magnesium levels to be more than 2. Once he is extubated, we will plan further care. May need a diagnostic catheterization. To be decided. Would prefer that narcotic drugs be off his system before that. Discussed with [place] farmer. Procedures Date of Service Date of Service: 10/28/24
[2024-10-28] MEDS: Magnesium Sulfate/H2O 2 GM/50 ML PIGGYBACK IV (12:32)
[2024-10-28] MEDS: Potassium Chloride/H20 10 MEQ/100 ML PIGGYBACK 100 MEQ IV ×4 (12:32→16:05)
--- NOTE | 2024-10-28 14:04 | MHC.CM.PN ---
Addendum entered by Herlinda Pardo 10/28/24 14:06: CM awaiting callback from Spouse for information on pt's Methadone clinic and dosing schedule. Original Note: Pt is intubated and unable to participate in CM assessment: Information obtained from EMR, staff and pt's spouse. Pt resides w/spouse, is independent w/care needs, has no DME or services and no barriers to care. Pt will need: CARE team consult for + substance use, HCP completion and ID of current MD. CM to follow. No services anticipated.
[2024-10-28] MEDS: Norepinephrine Bitartrate/D5W 8 MG/250 ML PLAST..BAG 28.91 MG IVCONT (14:19)
[2024-10-28 15:20] LABS: Anion Gap 12 (12-20); Blood Urea Nitrogen 8 mg/dL (9-16); Calcium 8.4 mg/dL (8.4-10.2); Carbon Dioxide 23 mmol/L (22-29); Chloride 108 mmol/L (96-108); Creatinine Clr Calc Pharmacy 123.2; Estimated Glomerular Filt Rate > 60; Glucose Random 191 mg/dL (60-115); Phosphorus 2.3 mg/dL (2.7-4.5); Potassium 4.1 mmol/L (3.3-5.1); Sodium 139 mmol/L (135-145)
[2024-10-28 15:40] LABS: PTT Heparin Drip 94.5 SEC (53-77.9)
[2024-10-28 15:45] LABS: Magnesium 2.2 mg/dL (1.6-2.6)
[2024-10-28] MEDS: Aspirin 325 MG TABLET PO (18:14)
--- NOTE | 2024-10-28 18:22 | PC.NURSE ---
Assumed care at 0700- pt. mechanically vented and sedated with propofol and fentanyl gtts per AUG. Heparin gtt running and titrated per protocol. Repeat trops drawn- see results. Cardiology at bedside to assess pt. Mag and K replaced per AUG. Transplanter at bedside to perform TTE- see report. Pt. on dopamine gtt per AUG. At approx 0720, pt. with 16 beat NSVT- MD notified. Doapmine cross titrated to norepinephrine gtt per MD- see MAR for titrations. Sedation weaned through morning, PSV trial performed- Pt. tolerating PSV 5/5 30%. Pt. extubated to RA by RT with MD order at 1425. Pt. awake and alert with raspy voice. No c/o pain. SR/SB on tele, HR 50s-70s with PVCs. Satting >92% on RA, intmt loose cough. Nursing swallow screen performed by this RN- pt. passed, MD notified. PO ASA given per AUG. Sharp removed at 1000, [place] cath palced. By 1600 pt. with no spontaneous void, no reponse to verbal coaching. Bladder scanned for 370cc. Per MD, bladder scan Q4, do not straight cath unless bladder scan >450. Oral care and repositioning performed Q2. S/O updated by this RN via telephone. Plan of care ongoing.
[2024-10-28] MEDS: Metoclopramide HCl 10 MG/2 ML VIAL 5 MG IVPUSH (21:03)
[2024-10-28 21:37] LABS: Alanine Aminotransferase 87 U/L (0-40); Albumin Level 3.5 g/dL (3.5-5.0); Alkaline Phosphatase 83 U/L (39-117); Anion Gap 15 (12-20); Aspartate Amino Transferase 66 U/L (5-37); Bilirubin Total 0.9 mg/dL (0.0-1.0); Blood Urea Nitrogen 9 mg/dL (9-16); Calcium 8.4 mg/dL (8.4-10.2); Carbon Dioxide 22 mmol/L (22-29); Chloride 107 mmol/L (96-108); Creatinine Clr Calc Pharmacy 119.7; Estimated Glomerular Filt Rate > 60; Glucose Random 148 mg/dL (60-115); Potassium 3.8 mmol/L (3.3-5.1); Sodium 140 mmol/L (135-145); Total Protein 6.2 g/dL (6.5-8.0)
[2024-10-28] MEDS: Atorvastatin Calcium 20 MG TABLET PO (21:46)
[2024-10-28 23:24] LABS: PTT Heparin Drip 65.2 SEC (53-77.9)
[2024-10-28] MEDS: Heparin Sodium,Porcine/1/2NS 25,000 UNIT/250 ML IV.SOLN 10.03 UNIT IVCONT (23:48)
[2024-10-28] MEDS: Pantoprazole Sodium 40 MG/10 ML VIAL IVPUSH (23:52)
[2024-10-29] VITALS (29 sets, daily range): BP systolic 94–139; BP diastolic 28–87; PULSE 51–83; RESP 13–25; TEMP 36.9–37.8; O2SAT 91–100; BMI 30.3
[2024-10-29] MEDS: Ampicillin Sodium/Sulbactam Na 3 GM in 0.9 % Sodium Chloride 100 ML IV ×4 (04:37→23:09)
[2024-10-29 05:02] LABS: Hematocrit 37.2 % (42.0-52.0); Hemoglobin 12.9 g/dl (14.0-18.0); Mean Corpuscular HGB Conc 34.7 g/dl (31.0-36.0); Mean Corpuscular Hemoglobin 29.3 pg (27.0-33.0); Mean Corpuscular Volume 84.4 fL (80.0-98.0); Mean Platelet Volume 11.4 fL (9.4-12.4); Platelet Count 244 X10*3/uL (160-400); Red Blood Count 4.41 X10*6/uL (4.60-5.80); Red Cell Distribution Width 13.4 % (11.0-16.0); White Blood Count 22.8 X10*3/uL (4.8-10.8)
[2024-10-29 05:07] LABS: INTERNATIONAL NORM RATIO 1.1 (0.9-1.1); Prothrombin Time 13.1 SEC (10.9-12.4)
[2024-10-29 05:10] LABS: PTT Heparin Drip 58.3 SEC (53-77.9)
[2024-10-29 05:17] LABS: Magnesium 1.9 mg/dL (1.6-2.6); Phosphorus 2.6 mg/dL (2.7-4.5)
[2024-10-29] MEDS: Norepinephrine Bitartrate/D5W 8 MG/250 ML PLAST..BAG 11.9 MG IVCONT (06:08)
[2024-10-29 07:18] LABS: Troponin-I High Sensitivity 2459.2 ng/L (<3.5-35.0)
[2024-10-29] MEDS: Metoclopramide HCl 10 MG/2 ML VIAL 5 MG IVPUSH (07:43)
[2024-10-29] MEDS: Famotidine/PF 20 MG/2 ML VIAL IVPUSH (07:43)
[2024-10-29] MEDS: Sodium,Potassium Phosphates POWD.PACK 2 PACKET PO (08:11)
[2024-10-29] MEDS: Aspirin 81 MG TAB.CHEW PO (08:12)
--- NOTE | 2024-10-29 08:21 | P.PNCC_ITS ---
Subjective Subjective Date of Service: 10/29/24 Interval History: Extubated yesterday, tolerating liberation from ventilator okay Critical Care Time (minutes): 35 Physical Exam 2 Vital Signs: Vital Signs: Last Vital Signs Temp 98.4 F 10/29/24 08:00 Pulse 64 10/29/24 08:00 Resp 21 H 10/29/24 08:00 BP 110/80 10/29/24 08:00 Pulse Ox 92 10/29/24 08:00 O2 Del Method Room Air 10/29/24 08:00 O2 Flow Rate 2 10/29/24 07:00 FiO2 30 10/28/24 14:34 BMI result Body Mass Index 30.3 General: Not in acute distress, comfortably sleeping in the bed Nutritional Appearance: well nourished and overweight Eyes: appearance normal, both eyes and all related structures; Alignment and Position: alignment normal and position normal Neck: No lymphadenopathy, no thyromegaly Resp: bilateral air entry equal, occasional added sounds present Cardio: Regular rate, regular rhythm; Heart sounds: S1 normal heart sound present and S2 normal heart sound present GI: soft, nontender, no guarding, no hepatosplenomegaly : bladder normal to inspection, bladder normal to palpation, no renal angle tenderness Skin: no rashes or lesions noted and elasticity normal Neuro: oriented to person, oriented to place, oriented to time and moves all extremities Objective Data Labs 10/29/24 04:25 10/28/24 21:09 Labs: Laboratory Results - last 24 hr 10/28/24 10/28/24 10/28/24 09:06 15:00 21:09 WBC RBC Hgb Hct MCV MCH MCHC RDW Plt Count MPV Absolute Nucleated RBC Nucleated RBC % (auto) PT INR aPTT Heparin Protocol 72.8 94.5 H D Sodium 139 140 Potassium 4.1 3.8 Chloride 108 107 Carbon Dioxide 23 22 Anion Gap 12 15 BUN 8 L 9 Creatinine 0.69 0.71 Estim Creat Clear Calc 123.2 119.7 Estimated GFR > 60 > 60 Random Glucose 191 H 148 H Calcium 8.4 8.4 Phosphorus 2.3 L Magnesium 2.2 Total Bilirubin 0.9 AST 66 H ALT 87 H Alkaline Phosphatase 83 Troponin I High Sens 4939.2 H* D Total Protein 6.2 L Albumin 3.5 05/05/25 05/06/25 23:10 04:25 WBC 22.8 H RBC 4.41 L Hgb 12.9 L Hct 37.2 L MCV 84.4 MCH 29.3 MCHC 34.7 RDW 13.4 Plt Count 244 MPV 11.4 Absolute Nucleated RBC 0.000 Nucleated RBC % (auto) 0.0 PT 13.1 H INR 1.1 aPTT Heparin Protocol 65.2 D 58.3 Sodium Potassium Chloride Carbon Dioxide Anion Gap BUN Creatinine Estim Creat Clear Calc Estimated GFR Random Glucose Calcium Phosphorus 2.6 L Magnesium 1.9 Total Bilirubin AST ALT Alkaline Phosphatase Troponin I High Sens 2459.2 H* D Total Protein Albumin Microbiology Microbiology Results: Microbiology 10/28/24 06:04 Blood - Venous Blood Culture - Preliminary No growth after 24 hours. 10/28/24 06:04 Blood - Venous Blood Culture - Preliminary No growth after 24 hours. Progress Note: A&P Assessment and plan (1) Hypotension: Status: Acute (2) Elevated troponin: Status: Acute (3) NSTEMI (non-ST elevated myocardial infarction): Status: Acute (4) Toxic encephalopathy: Status: Acute (5) Respiratory failure: Status: Acute (6) Acute respiratory failure: Status: Acute Plan Neuro: Acute encephalopathy possibly due to toxic encephalopathy from drug overdose, UDS positive for fentanyl, opiates; admitted to have used 2 bags of heroin before passing out Mental status has improved will do PRN dilaudid for opioid withdrawal. 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 Cardiology on Continue heparin drip, continue aspirin and atorvastatin Respiratory: Acute hypoxemic respiratory failure due to aspiration pneumonia Extubated yesterday, tolerating liberation from ventilator okay GI: We will start on oral feeds Transaminitis: Possibly secondary to drug overdose We will get hepatitis panel Renal: We will closely monitor I's and O's Avoid nephrotoxic medications Acute hypophosphatemia: will improved diet Heme: Chronic anemia, closely monitor H&H, transfuse for hemoglobin less than 7 grams/deciliter Endocrine: Blood sugars under control Sliding scale insulin as needed Infectious disease: Pancultures negative so far On empiric ampicillin sulbactam Musculoskeletal: Decubitus ulcer prevention protocol Lines: Peripheral Prophylaxis: Heparin, famotidine Quality Stroke Does the patient have a stroke diagnosis?: No VTE Prior VTE?: No VTE Risk Level:: Medical - moderate - high VTE Device Contraindication: N/A - Device Ordered VTE Drug Contraindication: N/A - Med Ordered
--- NOTE | 2024-10-29 10:15 | PM.PNCARD ---
Subjective Subjective Date of Service: 10/29/24 Interval history: Patient is now extubated. Still in the ICU. He states he feels okay. Denies any active chest pain. Discussed with patient using corporate security officer. Review of Systems Review of Systems Yes all other systems are reviewed and are negative Constitutional: Reports as per HPI and Reports no additional constitutional complaints Eyes: Reports as per HPI and Denies no additional eye complaints Denies system reviewed and no additional complaints, except as documented and Reports as per HPI Cardiovascular: Reports as per HPI, Reports no additional cardiovascular complaints, Denies acrocyanosis, Denies cool extremities, Denies chest pain, Denies leg edema, Denies lightheadedness, Denies palpitations and Denies dyspnea Respiratory: Reports as per HPI, Denies no additional respiratory complaints and Denies dyspnea Gastrointestinal: Reports as per HPI and Denies no additional gastrointestinal complaints Genitourinary: Reports no additional male genitourinary complaints and Reports as per HPI Musculoskeletal: Reports no additional musculoskeletal complaints and Reports as per HPI Skin/Breast: Reports system reviewed and no additional complaints, except as docu Reports system reviewed and no additional complaints, except as documented and Reports as per HPI Psychiatric: Reports no additional psychiatric complaints and Reports as per HPI Endocrine: Reports no additional endocrine complaints, Reports as per HPI and Denies palpitations Hematologic/Lymphatic: Reports no additional hematologic/lymphatic complaints and Reports as per HPI Allergic/Immunologic: Reports no additional allergic/immunologic complaints and Reports as per HPI Physical Exam Vital Signs: Last Vital Signs Temp 98.4 F 10/29/24 08:00 Pulse 80 10/29/24 10:00 Resp 21 H 10/29/24 10:00 BP 130/73 10/29/24 10:00 Pulse Ox 94 10/29/24 10:00 O2 Del Method Room Air 10/29/24 10:00 O2 Flow Rate 2 10/29/24 07:00 FiO2 30 10/28/24 14:34 BMI result Body Mass Index 30.3 Const General: comfortable and no acute distress Orientation/consciousness: patient oriented x3 HEENT Other: Unremarkable Head: Yes normal to inspection Neck Neck: Yes normal visual inspection Chest Chest palpation & inspection: normal inspection of the chest Resp Auscultation: wheezes and diminished lung sounds Cardio Palpation: normal PMI Heart sounds: S1 normal heart sound present, S2 normal heart sound present, no gallops, no murmurs and no rubs GI Palpation (GI): Soft to palpation Back/Spine/Pelvis Other: unremarkable Skin General skin exam: no rashes or lesions noted Neuro General: patient oriented x3 Extrem General: Yes normal to inspection Psych Mental Status: mental status grossly normal Objective Labs and Meds 10/29/24 04:25 10/28/24 21:09 Lab results: Laboratory Results - last 24 hr 10/28/24 10/28/24 10/28/24 09:06 15:00 21:09 WBC RBC Hgb Hct MCV MCH MCHC RDW Plt Count MPV Absolute Nucleated RBC Nucleated RBC % (auto) PT INR aPTT Heparin Protocol 94.5 H D Sodium 139 140 Potassium 4.1 3.8 Chloride 108 107 Carbon Dioxide 23 22 Anion Gap 12 15 BUN 8 L 9 Creatinine 0.69 0.71 Estim Creat Clear Calc 123.2 119.7 Estimated GFR > 60 > 60 Random Glucose 191 H 148 H Calcium 8.4 8.4 Phosphorus 2.3 L Magnesium 2.2 Total Bilirubin 0.9 AST 66 H ALT 87 H Alkaline Phosphatase 83 Troponin I High Sens 4939.2 H* D Total Protein 6.2 L Albumin 3.5 10/28/24 10/29/24 23:10 04:25 WBC 22.8 H RBC 4.41 L Hgb 12.9 L Hct 37.2 L MCV 84.4 MCH 29.3 MCHC 34.7 RDW 13.4 Plt Count 244 MPV 11.4 Absolute Nucleated RBC 0.000 Nucleated RBC % (auto) 0.0 PT 13.1 H INR 1.1 aPTT Heparin Protocol 65.2 D 58.3 Sodium Potassium Chloride Carbon Dioxide Anion Gap BUN Creatinine Estim Creat Clear Calc Estimated GFR Random Glucose Calcium Phosphorus 2.6 L Magnesium 1.9 Total Bilirubin AST ALT Alkaline Phosphatase Troponin I High Sens 2459.2 H* D Total Protein Albumin Progress Note: A&P Assessment and plan (1) Drug overdose: Status: Acute (2) Acute respiratory failure: Status: Acute (3) Toxic encephalopathy: Status: Acute (4) NSTEMI (non-ST elevated myocardial infarction): Status: Acute (5) Ventricular tachycardia: Status: Acute Plan High sensitivity troponin levels are 594, 1806, 4939. Most recently 2559. Echocardiogram with LVEF of 45%. Basal inferior/inferoseptal and inferolateral akinesis. On telemetry, no further VT. Isolated PVCs. Not too frequent. Overall, drug overdose, respiratory failure, now extubated, demand related NSTEMI, resolved VT, possible aspiration. IV heparin 48 hours. Aspirin. Because of bradycardia, we will not be able to use beta-blockers. Wean and stop the pressors. Correct electrolytes. Eventual diagnostic catheterization. Timing to be decided. Discussed with tool grinding technician. Time Spent With Patient Time: Total time managing care of this patient today ____ minutes. Progress Note: Quality Stroke Does the patient have a stroke diagnosis?: No Procedures Date of Service Date of Service: 10/29/24
--- NOTE | 2024-10-29 10:38 | ECG_ITS ---
Test Reason : check qtc Blood Pressure : */* mmHG Vent. Rate : 59 BPM Atrial Rate : 59 BPM P-R Int : 168 ms QRS Dur : 106 ms QT Int : 466 ms P-R-T Axes : 52 44 46 degrees QTcB Int : 461 ms Sinus bradycardia with occasional Premature ventricular complexes Otherwise normal ECG When compared to the previous EKG of oct 28 2024, NSVT not seen. Referred By: Darion Sun Electronically Signed By: NUNU PEREZ
[2024-10-29] MEDS: Furosemide 40 MG/4 ML VIAL IVPUSH (11:04)
[2024-10-29] MEDS: methADONE HCl 20 MG/2 ML ORAL.CONC 40 MG PO (11:05)
[2024-10-29 11:27] LABS: HBS Num1 0.77 mIU/mL (0-7.99); HBc Num1 0.11 S/CO (0.00-0.79); HBsAGNum1 0.31 S/CO (0.00-0.99); Hepatitis B Core Antibody Nonreactive (Nonreactive); Hepatitis B Surface Antigen Negative (Negative); ~HepC Num1 0.12 S/CO (0.00-0.79); ~Hepatitis B Surface Antibody NONREACTIVE (Nonreactive); ~Hepatitis C Antibody Nonreactive (Nonreactive)
--- NOTE | 2024-10-29 13:55 | MHC.CM.PN ---
Pt remains in ICU: waiting for cardiology consult re: NSTEMI and echo results. Pt may be able to transfer to the medical floor later today or tomorrow. D/C Plan: return the home w/family support
--- NOTE | 2024-10-29 14:55 | PC.NURSE ---
Methadone dose verified: Clinic Name: [facility] phone: [phone] Date called: 10/29/24 14:50 Methadone Dose: 100 mg. Name: Zoie BRADFORD Last dose given 10/25/24, 09:31 AM. Patient given 6 take home bottles. With sample supervisor services, patient states he does not remember his last date taking a dose at home. Called and she is unsure of last dose. Verification form faxed to pharmacy
[2024-10-29] MEDS: Albuterol/Iprat 2.5/0.5MG 3 ML AMPUL.NEB INHALE ×2 (15:07→19:33)
--- NOTE | 2024-10-29 15:37 | HE.PHANOTE ---
RECEIVED METHADONE VERIFICATION FORM FROM OXANA BANERJEE. PATIENT DOSE WAS 100 MG ON 10/25/24 AND 6 TAKE HOME BOTTLES WERE PROVIDED
--- NOTE | 2024-10-29 16:04 | PM.EVENT ---
Event Note Date of Service: 10/29/24 Event Note: 59 year old man admitted to ICU for Overdose and collapse requiring pressors and intubation. Intubated on admission and extubated on 10/28/24 Cardiogenic shock secondary to Overdose with hypotension Heroin use Required intubation and pressors Extubated yesterday Alert and eating Transfer to medical tele floor Acute hypoxic respiratory failure secondary to aspiration pneumonia Off ventilator now on room air Continue ampicillin Bradycardia Secondary to overdose Transaminitis Follow LFTs, negative hepatitis panel Vtach and Torsades. Resolved Whole intubated possibly due to Dopamine, switched to Levophed NSTEMI, demand ischemia likely secondary to drug overdose Troponin peaked at 4939 Started on IV heparin on 10/28/2024, we will complete at least 48 hours Echocardiogram with EF of 45%, basal inferior, basilar inferior septal and basal inferior lateral akinesis with no obvious valvular pathology Cardiology following Aspirin No beta-lorene due to bradycardia Substance abuse Continue methadone DVT prophylaxis with IV heparin Time Spent With Patient Time: Total time managing care of this patient today ____ minutes.
--- NOTE | 2024-10-29 18:30 | PC.NURSE ---
Assumed care of patient 07 Patient remains on Heparin gtt @11 u/kg/hr. Pervious 2 PTT checks in therapeutic range. Next PTT 10/30/24 06:00 Pt requiring levophed gtt. Titrated down per MD and then paused. MAPs at goal of greater than 65. approx 10:00 Cardiology MD at bedside. Plan to continue heparin gtt. Lasix 40 mg IVP given per AUG. Methadone 40 mg PO given while awaiting dose verification from Genevieve Ortiz. See note regarding dose verification. 17:00 ED BH POD contacted for patient belongings per request of . of pt states he is missing a cell phone and long shaped wallet with $700 [place]. ED POD delivered bag of belongings to ICU that included clothing, wallet, cell phone, money. Patient and state that all belongings accounted for at this time. Pt encouraged to send money/valuables home with . Belongings at bedside.
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
[2024-10-29 20:03] LABS: LDL Cholesterol Direct 125 mg/dL (<100)
[2024-10-29] MEDS: Atorvastatin Calcium 20 MG TABLET PO (20:33)
[2024-10-29] MEDS: Heparin Sodium,Porcine/1/2NS 25,000 UNIT/250 ML IV.SOLN 10.03 UNIT IVCONT (22:04)
[2024-10-30] VITALS (8 sets, daily range): BP systolic 100–123; BP diastolic 62–85; PULSE 58–70; RESP 16–20; TEMP 36.8–37.6; O2SAT 93–98; BMI 29.1
[2024-10-30] MEDS: Ampicillin Sodium/Sulbactam Na 3 GM in 0.9 % Sodium Chloride 100 ML IV ×4 (05:47→23:37)
[2024-10-30 06:35] LABS: Basophils Absolute Auto 0.1 X10*3/uL (0.0-0.2); Basophils Percent Auto 0.3 % (0-2); Eosinophils Absolute Auto 0.2 X10*3/uL (0.0-0.4); Eosinophils Percent Auto 1.1 % (0-4); Hemoglobin 12.9 g/dl (14.0-18.0); Imm Gran Abs Auto 0.09 X10*3/uL (0.00-0.03); Imm Gran Pct Auto 0.5 % (0.0-0.4); Lymphocytes Absolute Auto 2.8 X10*3/uL (1.2-4.9); Lymphocytes Percent Auto 16.1 % (20-40); MANUAL DIFF FLAG SCAN; Mean Corpuscular HGB Conc 33.9 g/dl (31.0-36.0); Mean Corpuscular Hemoglobin 29.1 pg (27.0-33.0); Mean Corpuscular Volume 85.6 fL (80.0-98.0); Mean Platelet Volume 11.2 fL (9.4-12.4); Monocytes Absolute Auto 2.1 X10*3/uL (0.1-1.2); Monocytes Percent Auto 11.8 % (2-11); Neutrophils Absolute Auto 12.2 x10*3/uL (2.0-8.3); Neutrophils Percent Auto 70.2 % (45-73); Platelet Count 222 X10*3/uL (160-400); Red Blood Count 4.44 X10*6/uL (4.60-5.80); Red Cell Distribution Width 13.5 % (11.0-16.0); SCAN SMEAR FLAG 1; White Blood Count 17.3 X10*3/uL (4.8-10.8)
[2024-10-30 06:42] LABS: PTT Heparin Drip 39.1 SEC (53-77.9)
[2024-10-30 06:55] LABS: SLIDE REVIEW VERIFIED
[2024-10-30 07:03] LABS: Alanine Aminotransferase 52 U/L (0-40); Albumin Level 3.4 g/dL (3.5-5.0); Alkaline Phosphatase 75 U/L (39-117); Anion Gap 12 (12-20); Aspartate Amino Transferase 36 U/L (5-37); Bilirubin Total 1.3 mg/dL (0.0-1.0); Blood Urea Nitrogen 11 mg/dL (9-16); Calcium 8.8 mg/dL (8.4-10.2); Carbon Dioxide 27 mmol/L (22-29); Chloride 106 mmol/L (96-108); Creatinine Clr Calc Pharmacy 136.2; Estimated Glomerular Filt Rate > 60; Glucose Random 105 mg/dL (60-115); Magnesium 1.8 mg/dL (1.6-2.6); Phosphorus 2.4 mg/dL (2.7-4.5); Potassium 3.3 mmol/L (3.3-5.1); Sodium 142 mmol/L (135-145); Total Protein 6.2 g/dL (6.5-8.0)
[2024-10-30] MEDS: Heparin Sodium,Porcine 5,000 UNIT/ML VIAL 3600 UNIT IVPUSH (07:27)
[2024-10-30] MEDS: Albuterol/Iprat 2.5/0.5MG 3 ML AMPUL.NEB INHALE ×3 (08:21→20:12)
--- NOTE | 2024-10-30 09:26 | P.PNIM_ITS ---
Subjective Subjective Date of Service: 10/30/24 Review of Systems Follow up NSTEMI No chest pain shortness breath Does have a productive cough, reports smoking history Physical Exam 2 Vital Signs: Vital Signs: Last Vital Signs Temp 98.6 F 10/30/24 07:33 Pulse 68 10/30/24 08:24 Resp 18 10/30/24 08:24 BP 119/85 10/30/24 07:33 Pulse Ox 98 10/30/24 07:33 O2 Del Method Room Air 10/30/24 07:33 O2 Flow Rate 2 10/29/24 07:00 FiO2 30 10/28/24 14:34 BMI result Body Mass Index 29.1 Appearing in no acute distress lung sounds are clear to auscultation heart regular rate rhythm, clear S1, S2 positive bowel sounds, abdomen is soft, nontender neuro patient is alert x3, no focal deficits Objective Data Active Medications Albuterol Sulfate (Albuterol Sulfate (0.083%) 2.5 Mg/3 Ml Vial.Neb) 2.5 mg INHALE Q4H PRN PRN Reason: Wheezing Last Admin: 10/28/24 00:20 Dose: 2.5 mg Documented By: LORENE Albuterol/Ipratropium (Albuterol/Iprat 2.5/0.5mg 3 Ml Ampul.Neb) 3 ml INHALE RQ6H WHILE AWAKE [facility] Last Admin: 10/30/24 08:21 Dose: 3 ml Documented By: SIDRA Aspirin (Aspirin 81 Mg Tab.Chew) 81 mg PO DAILY [facility] Last Admin: 10/29/24 08:12 Dose: 81 mg Documented By: JING Atorvastatin Calcium (Atorvastatin Calcium 20 Mg Tablet) 20 mg PO BEDTIME [facility] Last Admin: 10/29/24 20:33 Dose: 20 mg Documented By: RUDDY Famotidine (Famotidine/Pf 20 Mg/2 Ml Vial) 20 mg IVPUSH DAILY [facility] Last Admin: 10/29/24 07:43 Dose: 20 mg Documented By: JING Heparin Sodium (Porcine) (Heparin Sodium,Porcine 5,000 Unit/Ml Vial) 3,600 unit 40 unit/kg (3600 unit) IVPUSH PROTOCOL BOLUS PRN; Protocol PRN Reason: 40 unit/kg - Heparin Protocol Last Admin: 10/30/24 07:27 Dose: 3,600 unit Documented By: COLEEN Heparin Sodium (Porcine) (Heparin Sodium,Porcine 5,000 Unit/Ml Vial) 7,300 unit 80 unit/kg (7300 unit) IVPUSH PROTOCOL BOLUS PRN; Protocol PRN Reason: 80 unit/kg - Heparin Protocol Hydromorphone HCl (Hydromorphone Hcl 0.5 Mg/0.5 Ml Syringe) 0.5 mg IM Q4H PRN; Protocol PRN Reason: withdrawal Ampicillin Sodium/Sulbactam (Sodium 3 gm/ Sodium Chloride) 100 mls @ 200 mls/hr IV Q6H [facility] Last Infusion: 10/30/24 06:17 Dose: Infused Documented By: DAYAN Methadone HCl (Methadone Hcl 20 Mg/2 Ml Oral.Conc) 40 mg PO DAILY@0800 [facility] Last Admin: 10/29/24 11:05 Dose: 40 mg Documented By: JING Co-signed By: ROBI Naloxone HCl (Naloxone Hcl 0.4 Mg/Ml Vial) 0.2 mg IVPUSH Q2M PRN PRN Reason: Excessive sedation or RR < 8 Labs 10/30/24 06:04 10/30/24 06:05 Labs: Laboratory Results - last 24 hr 10/28/24 10/29/24 10/30/24 06:04 10:23 06:04 MCV 85.6 MCH 29.1 MCHC 33.9 RDW 13.5 Plt Count 222 MPV 11.2 Immature Gran % (Auto) 0.5 H Neut % (Auto) 70.2 Lymph % (Auto) 16.1 L Wagoner % (Auto) 11.8 H Eos % (Auto) 1.1 Baso % (Auto) 0.3 Lymph # (Auto) 2.8 [place]er # (Auto) 2.1 H Eos # (Auto) 0.2 Baso # (Auto) 0.1 Abs Immat Gran (auto) 0.09 H Absolute Neuts (auto) 12.2 H Absolute Nucleated RBC 0.000 Nucleated RBC % (auto) 0.0 Smear Tech's Comments VERIFIED aPTT Heparin Protocol 39.1 L D Anion Gap Estim Creat Clear Calc Estimated GFR Random Glucose Calcium Phosphorus Magnesium Total Bilirubin AST ALT Alkaline Phosphatase Total Protein Albumin LDL Cholesterol Direct 125 H Hep Bs Antigen Negative Hep Bs Antibody NONREACTIVE Hep B Core Total Ab Nonreactive Hepatitis C Ab (EIA) Nonreactive 10/30/24 06:05 MCV MCH MCHC RDW Plt Count MPV Immature Gran % (Auto) Neut % (Auto) Lymph % (Auto) [place]agoner % (Auto) Eos % (Auto) Baso % (Auto) Lymph # (Auto) [place]er # (Auto) Eos # (Auto) Baso # (Auto) Abs Immat Gran (auto) Absolute Neuts (auto) Absolute Nucleated RBC Nucleated RBC % (auto) Smear Tech's Comments aPTT Heparin Protocol Anion Gap 12 Estim Creat Clear Calc 136.2 Estimated GFR > 60 Random Glucose 105 Calcium 8.8 Phosphorus 2.4 L Magnesium 1.8 Total Bilirubin 1.3 H AST 36 ALT 52 H Alkaline Phosphatase 75 Total Protein 6.2 L Albumin 3.4 L LDL Cholesterol Direct Hep Bs Antigen Hep Bs Antibody Hep B Core Total Ab Hepatitis C Ab (EIA) Microbiology Microbiology Results: Microbiology 10/28/24 06:04 Blood Culture - Preliminary Blood - Venous No growth after 48 hours. 10/28/24 06:04 Blood Culture - Preliminary Blood - Venous No growth after 48 hours. Assessment and Plan (1) NSTEMI (non-ST elevated myocardial infarction): Status: Acute Plan 59 year old man admitted to ICU for Overdose and collapse requiring pressors and intubation. Intubated on admission and extubated on 10/28/24. Transferred to medical floor 10/29/2024 Cardiogenic shock secondary to Overdose with hypotension. Resolved Heroin overdose Required intubation and pressors Extubated 10/28/24 Alert and eating NSTEMI, demand ischemia likely secondary to drug overdose Troponin peaked at 4939 s/p IV heparin stopped 10/30/24 Echocardiogram with EF of 45%, basal inferior, basilar inferior septal and basal inferior lateral akinesis with no obvious valvular pathology Cardiology following> no plan for catheterization due to overdose Aspirin, statin No beta-lorene due to bradycardia Acute hypoxic respiratory failure secondary to aspiration pneumonia. Resolved Off ventilator now on room air Continue ampicillin Bradycardia. Resolved Secondary to overdose Transaminitis Follow LFTs, negative hepatitis panel Vtach and Torsades. Resolved Whole intubated possibly due to Dopamine, switched to Levophed Substance abuse Continue methadone DVT prophylaxis with IV heparin Quality Stroke Does the patient have a stroke diagnosis?: No VTE Prior VTE?: No VTE Risk Level:: Medical - moderate - high VTE Device Contraindication: N/A - Device Ordered VTE Drug Contraindication: N/A - Med Ordered
--- NOTE | 2024-10-30 09:27 | PM.PNCARD ---
Subjective Subjective Date of Service: 10/30/24 Interval history: He states that he feels well. He does not have any active chest pains. Shortness of breath is present. Review of Systems Review of Systems Yes all other systems are reviewed and are negative Constitutional: Reports as per HPI and Reports no additional constitutional complaints Eyes: Reports as per HPI and Denies no additional eye complaints Denies system reviewed and no additional complaints, except as documented and Reports as per HPI Cardiovascular: Reports as per HPI, Reports no additional cardiovascular complaints, Denies acrocyanosis, Denies cool extremities, Denies chest pain, Denies leg edema, Denies lightheadedness, Denies palpitations and Reports dyspnea Respiratory: Reports as per HPI, Denies no additional respiratory complaints and Reports dyspnea Gastrointestinal: Reports as per HPI and Denies no additional gastrointestinal complaints Genitourinary: Reports no additional male genitourinary complaints and Reports as per HPI Musculoskeletal: Reports no additional musculoskeletal complaints and Reports as per HPI Skin/Breast: Reports system reviewed and no additional complaints, except as docu Reports system reviewed and no additional complaints, except as documented and Reports as per HPI Psychiatric: Reports no additional psychiatric complaints and Reports as per HPI Endocrine: Reports no additional endocrine complaints, Reports as per HPI and Denies palpitations Hematologic/Lymphatic: Reports no additional hematologic/lymphatic complaints and Reports as per HPI Allergic/Immunologic: Reports no additional allergic/immunologic complaints and Reports as per HPI Physical Exam Vital Signs: Last Vital Signs Temp 98.6 F 10/30/24 07:33 Pulse 68 10/30/24 08:24 Resp 18 10/30/24 08:24 BP 119/85 10/30/24 07:33 Pulse Ox 98 10/30/24 07:33 O2 Del Method Room Air 10/30/24 07:33 O2 Flow Rate 2 10/29/24 07:00 FiO2 30 10/28/24 14:34 BMI result Body Mass Index 29.1 Const General: comfortable and no acute distress Orientation/consciousness: patient oriented x3 HEENT Other: Unremarkable Head: Yes normal to inspection Neck Neck: Yes normal visual inspection Chest Chest palpation & inspection: normal inspection of the chest Resp Auscultation: wheezes and diminished lung sounds Cardio Palpation: normal PMI Heart sounds: S1 normal heart sound present, S2 normal heart sound present, no gallops, no murmurs and no rubs GI Palpation (GI): Soft to palpation Back/Spine/Pelvis Other: unremarkable Skin General skin exam: no rashes or lesions noted Neuro General: patient oriented x3 Extrem General: Yes normal to inspection Psych Mental Status: mental status grossly normal Objective Labs and Meds 10/30/24 06:04 10/30/24 06:05 Lab results: Laboratory Results - last 24 hr 10/28/24 10/29/24 10/30/24 06:04 10:23 06:04 WBC 17.3 H RBC 4.44 L Hgb 12.9 L Hct 38.0 L MCV 85.6 MCH 29.1 MCHC 33.9 RDW 13.5 Plt Count 222 MPV 11.2 Immature Gran % (Auto) 0.5 H Neut % (Auto) 70.2 Lymph % (Auto) 16.1 L Coleman % (Auto) 11.8 H Eos % (Auto) 1.1 Baso % (Auto) 0.3 Lymph # (Auto) 2.8 Coleman # (Auto) 2.1 H Eos # (Auto) 0.2 Baso # (Auto) 0.1 Abs Immat Gran (auto) 0.09 H Absolute Neuts (auto) 12.2 H Absolute Nucleated RBC 0.000 Nucleated RBC % (auto) 0.0 Smear Tech's Comments VERIFIED aPTT Heparin Protocol 39.1 L D Sodium Potassium Chloride Carbon Dioxide Anion Gap BUN Creatinine Estim Creat Clear Calc Estimated GFR Random Glucose Calcium Phosphorus Magnesium Total Bilirubin AST ALT Alkaline Phosphatase Total Protein Albumin LDL Cholesterol Direct 125 H Hep Bs Antigen Negative Hep Bs Antibody NONREACTIVE Hep B Core Total Ab Nonreactive Hepatitis C Ab (EIA) Nonreactive 10/30/24 06:05 WBC RBC Hgb Hct MCV MCH MCHC RDW Plt Count MPV Immature Gran % (Auto) Neut % (Auto) Lymph % (Auto) Coleman % (Auto) Eos % (Auto) Baso % (Auto) Lymph # (Auto) Coleman # (Auto) Eos # (Auto) Baso # (Auto) Abs Immat Gran (auto) Absolute Neuts (auto) Absolute Nucleated RBC Nucleated RBC % (auto) Smear Tech's Comments aPTT Heparin Protocol Sodium 142 Potassium 3.3 Chloride 106 Carbon Dioxide 27 Anion Gap 12 BUN 11 Creatinine 0.61 Estim Creat Clear Calc 136.2 Estimated GFR > 60 Random Glucose 105 Calcium 8.8 Phosphorus 2.4 L Magnesium 1.8 Total Bilirubin 1.3 H AST 36 ALT 52 H Alkaline Phosphatase 75 Total Protein 6.2 L Albumin 3.4 L LDL Cholesterol Direct Hep Bs Antigen Hep Bs Antibody Hep B Core Total Ab Hepatitis C Ab (EIA) Progress Note: A&P Assessment and plan (1) Drug overdose: Status: Acute (2) Acute respiratory failure: Status: Acute (3) NSTEMI (non-ST elevated myocardial infarction): Status: Acute Plan High sensitivity troponin levels are 594, 1806, 4939. Most recently 2559. Echocardiogram with LVEF of 45%. Basal inferior/inferoseptal and inferolateral akinesis. Stable telemetry. Overall, suspected NSTEMI in the setting of drug overdose, respiratory failure. Possible aspiration. Discussed with . He recommends medical management at this time due to noncompliance and active drug use. Hence we can keep on aspirin and statins. There is bradycardia history and hence will hold off on beta-blockers. Follow up in clinic will be arranged. Time Spent With Patient Time: Total time managing care of this patient today ____ minutes. Progress Note: Quality Stroke Does the patient have a stroke diagnosis?: No Procedures Date of Service Date of Service: 10/30/24
[2024-10-30] MEDS: Aspirin 81 MG TAB.CHEW PO (09:39)
[2024-10-30] MEDS: methADONE HCl 20 MG/2 ML ORAL.CONC 40 MG PO (09:40)
[2024-10-30] MEDS: Famotidine/PF 20 MG/2 ML VIAL IVPUSH (09:40)
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
--- NOTE | 2024-10-30 14:09 | MHC.CM.PN ---
EMR reviewed and per MD rounds, pt is not medically cleared for discharge due to management of NSTEMI, cardiology following.
[2024-10-30 14:49] LABS: PTT Heparin Drip 32.4 SEC (53-77.9)
[2024-10-30] MEDS: methADONE HCl 20 MG/2 ML ORAL.CONC PO (21:07)
[2024-10-30] MEDS: Atorvastatin Calcium 80 MG TABLET PO (21:08)
[2024-10-31] VITALS (7 sets, daily range): BP systolic 118–133; BP diastolic 60–82; PULSE 52–72; RESP 14–18; TEMP 36.4–36.8; O2SAT 92–96; BMI 29.8
[2024-10-31] MEDS: Ampicillin Sodium/Sulbactam Na 3 GM in 0.9 % Sodium Chloride 100 ML IV ×2 (04:55→09:31)
[2024-10-31] MEDS: Magnesium Hydrox/Alum Hydrox 30 ML ORAL.SUSP PO (04:55)
[2024-10-31 07:10] LABS: PTT Heparin Drip 30.8 SEC (53-77.9)
[2024-10-31] MEDS: Albuterol/Iprat 2.5/0.5MG 3 ML AMPUL.NEB INHALE ×2 (08:05→13:49)
[2024-10-31] MEDS: Aspirin 81 MG TAB.CHEW PO (09:31)
[2024-10-31] MEDS: methADONE HCl 20 MG/2 ML ORAL.CONC 40 MG PO ×2 (09:31→14:45)
[2024-10-31] MEDS: Famotidine/PF 20 MG/2 ML VIAL IVPUSH (09:33)
--- NOTE | 2024-10-31 14:04 | PM.DS ---
DS: Providers Provider Date of Service: 10/31/24 Date of admission: 10/27/24 22:31 Date of discharge: 10/31/24 Primary care physician: Unknown Physician Consults: 10/28/24 10:13 Consult to Cardiology Routine Consulting Provider: [facility] Reason for consultation: NSTEMI 10/29/24 09:41 Inpt - Recovery Team Routine Comment: Reason for consultation: recent relapse 10/29/24 10:15 Addiction Medicine Provider Routine Consulting Provider: Addiction Covering Reason for consultation: opioid withdrawal Attending physician on discharge: Haroldo Esquivel Discharging clinician: Lea Roberts DS: Diagnosis Discharge Diagnosis (1) Opioid use disorder: Status: Acute DS: Summary Hospital Course Hospital Course: From H&P on the day of admission ?The patient is a 59-year-old male with past medical history of polysubstance abuse on methadone who presented? to the emergency department via EMS ? due to overdose.? According to patient was eating dinner when he ?passed out?? and vomited.? According to EMS his pupils were pinpoint,? he was bradycardic to 30s and 40s,? 2 mg Narcan administered en route to hospital,? with the patient waking up after and admitted to do in 2 bags of heroin.? ?On arrival to the emergency department,? patient? patient is lethargic,? requiring multiple doses of IV Narcan and initiation of Narcan drip with no significant improvement in mentation.? ? Required emergent intubation for airway protection Initial venous gas: 7.05/86/168/24 Utox:? positive for opiates, oxycodone, methadone, and fentanyl Cardiogenic shock secondary to drug overdose with hypotension. Required icu level of care on admission for intubation and pressors. Extubated 10/28/24. downgraded to the medical floor on October 29. toxic metabolic encephalopathy. Resolved due to above NSTEMI, demand ischemia likely secondary to drug overdose Troponin peaked at 4939. s/p IV heparin stopped 10/30/24. Echocardiogram with EF of 45%, basal inferior, basilar inferior septal and basal inferior lateral akinesis with no obvious valvular pathology Cardiology following> Started on Aspirin, statin. No beta-lorene due to bradycardia. no plan for cardiac catheterization due to overdose/ noncompliance/active drug use. recommend outpatient follow up with cardiology Acute hypoxic respiratory failure secondary to aspiration pneumonia. Off ventilator now on room air. Treated with ampicillin, will discharge home to complete 2 more days of oral antibiotics Transaminitis Mild, trending down. negative hepatitis panel Vtach and Torsades. Resolved Occurred While intubated. possibly due to Dopamine, switched to Levophed. no recurrance. Substance abuse Continue methadone. seen by addiction Medicine. patient connected to [facility] and will return there for ongoing treatment of OUD upon discharge. will send home with narcan Time Attestation Discharge Coordination Time (in mins): 36 Quality: Safe Use of Opioids Does Pt have an Active Cancer Diagnosis on the Problem List?: No Quality: Stroke Does the patient have a stroke diagnosis?: No Physical Exam Vital Signs: Vital Signs: Last Vital Signs Temp 98.2 F 10/31/24 11:56 Pulse 56 10/31/24 13:51 Resp 16 10/31/24 13:51 BP 123/82 10/31/24 11:56 Pulse Ox 95 10/31/24 11:56 O2 Del Method Room Air 10/31/24 11:56 O2 Flow Rate 2 10/29/24 07:00 FiO2 30 10/28/24 14:34 BMI result Body Mass Index 29.8 Const: General: cooperative, comfortable, no acute distress, alert and awake Nutritional Appearance: average body habitus Orientation/consciousness: patient oriented x3 Resp: Effort & Inspection: normal respiratory effort, able to speak in complete sentences, no respiratory distress and no use of accessory muscles Cardio: Rate: bradycardic GI: Inspection: No distended Neuro: General: patient oriented x3, moves all extremities and CN's II-XI intact bilaterally DS: Data Data Completed and Pending Labs on day of discharge: Laboratory Results - last 24 hr 10/30/24 10/31/24 13:18 06:39 Hold Purple Top SEE NOTE aPTT Heparin Protocol 32.4 L 30.8 L Preliminary micro results at discharge 10/28/24 06:04 Blood Culture - Preliminary Blood - Venous No growth after 48 hours. 10/28/24 06:04 Blood Culture - Preliminary Blood - Venous No growth after 48 hours. Discharge Plan Discharge Anticipated Discharge Date/Time: 10/31/24 14:22 Patient Disposition: Home, Self-Care Discharge Diagnosis: NSTEMI acute respiratory failure aspiration pneumonia drug overdose Referrals: [facility] [Provider Group] - 11/01/24 (Por favor, lleve la carta de la ?ltima dosis a la cl?dieudonne ma?johnna por la ma?johnna.) Lawrence Leary MD [Physician] - 1 Week (NSTEMI ) Physician,Felipe J [Primary Care Provider] - 1 Week Discharge Medications: New amoxicillin-pot clavulanate 875-125 mg tablet 1 tab PO Q12H 2 Days Qty: 4 0RF atorvastatin 80 mg Tablet 80 mg PO BEDTIME Qty: 90 0RF aspirin 81 mg Tablet,Chewable 81 mg PO DAILY 90 Days Qty: 90 0RF Continued methadone 10 mg Tablet 100 mg PO DAILY Discharge Orders: Discharge Order (Routine); Ordered 10/31/24 Ordered By: Lea Roberts Activity on Discharge: As tolerated Stand Alone Forms: Patient Portal Discharge page Print Language: Greenlandic Care Plan Goals: see below Health Concerns: cardiogenic shock/NSTEMI respiratory failure due to aspiration pneumonia and above. resolved toxic metabolic encephalopathy due to above. Resolved Plan of Treatment: complete 2 more days of oral antibiotics take statin, aspirin for heart disease. Call to schedule follow-up appointment with Cardiology call to schedule follow-up appointment with primary care provider avoid drug use Assessment: see discharge summary
[2024-10-31] MEDS: Naloxone HCl Nasal TAKE HOME 4 MG SPRAY 8 MG NOSTRILALT (14:45)
--- NOTE | 2024-10-31 15:43 | P.PNADD_ITS ---
Subjective Subjective Date of Service: 10/31/24 Reason For Visit: Ovedose Interim History: Patient seen in follow up He is awake, alert, sitting by the window, reporting he feels ready to go home. Yesterday received methadone 40mg in AM and 20mg in the evening. States he felt 'okay with that dose, Attempted to discuss harm reduction and overdose prevention with patient, but he would say, I don't think I'm going to that again, we don't need to talk about that . He states that he spoke to his counselor from the [facility] for some time and that he plans to go back to religious. Review of Systems Acute medical concerns: Yes Review of Systems Constitutional: Reports as per HPI and Reports no additional constitutional complaints Mental Status Exam Mental Status Exam Patient Appearance: Appropriate Level of Consciousness: Awake, Appropriate and Alert Patient Behavior: Appropriate and Guarded Mood Description: Calm Affect Description: Calm Memory Description: Intact Hallucinations: None Thought Content: positive for Intact and positive for [place] Judgement: Fair Diagnostics Vital Signs (24Hr): Vital Signs - 24 hr 10/30/24 16:00 10/30/24 19:34 10/30/24 20:13 Temperature 98.3 F 98.7 F Pulse Rate 59 60 64 Respiratory Rate 18 16 20 Blood Pressure 110/82 100/62 Pulse Oximetry 94 94 Oxygen Delivery Method Room Air Room Air 10/31/24 00:00 10/31/24 04:00 10/31/24 07:53 Temperature 97.5 F 97.8 F 98.3 F Pulse Rate 58 72 65 Respiratory Rate 16 16 17 Blood Pressure 118/60 127/75 123/76 Pulse Oximetry 96 92 96 Oxygen Delivery Method Room Air Room Air Room Air 10/31/24 08:06 10/31/24 11:56 10/31/24 13:51 Temperature 98.2 F Pulse Rate 69 65 56 Respiratory Rate 18 14 16 Blood Pressure 123/82 Pulse Oximetry 95 Oxygen Delivery Method Room Air BMI result Body Mass Index 29.8 Labs 10/30/24 06:04 10/30/24 06:05 Labs: Laboratory Results - last 48 hr 10/28/24 10/30/24 10/30/24 06:04 06:04 06:05 WBC 17.3 H RBC 4.44 L Hgb 12.9 L Hct 38.0 L MCV 85.6 MCH 29.1 MCHC 33.9 RDW 13.5 Plt Count 222 MPV 11.2 Immature Gran % (Auto) 0.5 H Neut % (Auto) 70.2 Lymph % (Auto) 16.1 L [place] % (Auto) 11.8 H Eos % (Auto) 1.1 Baso % (Auto) 0.3 Lymph # (Auto) 2.8 [place] # (Auto) 2.1 H Eos # (Auto) 0.2 Baso # (Auto) 0.1 Abs Immat Gran (auto) 0.09 H Absolute Neuts (auto) 12.2 H Absolute Nucleated RBC 0.000 Nucleated RBC % (auto) 0.0 Smear Tech's Comments VERIFIED Hold Purple Top aPTT Heparin Protocol 39.1 L D Sodium 142 Potassium 3.3 Chloride 106 Carbon Dioxide 27 Anion Gap 12 BUN 11 Creatinine 0.61 Estim Creat Clear Calc 136.2 Estimated GFR > 60 Random Glucose 105 Calcium 8.8 Phosphorus 2.4 L Magnesium 1.8 Total Bilirubin 1.3 H AST 36 ALT 52 H Alkaline Phosphatase 75 Total Protein 6.2 L Albumin 3.4 L LDL Cholesterol Direct 125 H 10/30/24 10/31/24 13:18 06:39 WBC RBC Hgb Hct MCV MCH MCHC RDW Plt Count MPV Immature Gran % (Auto) Neut % (Auto) Lymph % (Auto) [place] % (Auto) Eos % (Auto) Baso % (Auto) Lymph # (Auto) [place] # (Auto) Eos # (Auto) Baso # (Auto) Abs Immat Gran (auto) Absolute Neuts (auto) Absolute Nucleated RBC Nucleated RBC % (auto) Smear Tech's Comments Hold Purple Top SEE NOTE aPTT Heparin Protocol 32.4 L 30.8 L Sodium Potassium Chloride Carbon Dioxide Anion Gap BUN Creatinine Estim Creat Clear Calc Estimated GFR Random Glucose Calcium Phosphorus Magnesium Total Bilirubin AST ALT Alkaline Phosphatase Total Protein Albumin LDL Cholesterol Direct Imaging Radiology Impressions: ITS Impressions Chest X-Ray 10/28/24 07:13 IMPRESSION: The nasogastric tube terminates in the stomach. Electronically signed by: Kurtis Lazaro MD 10/28/2024 08:15 AM EDT Medications Medications Current Medications Albuterol Sulfate (Albuterol Sulfate (0.083%) 2.5 Mg/3 Ml Vial.Neb) 2.5 mg INHALE Q4H PRN PRN Reason: Wheezing Last Admin: 10/28/24 00:20 Dose: 2.5 mg Albuterol/Ipratropium (Albuterol/Iprat 2.5/0.5mg 3 Ml Ampul.Neb) 3 ml INHALE RQ6H WHILE AWAKE [facility] Last Admin: 10/31/24 13:49 Dose: 3 ml Aspirin (Aspirin 81 Mg Tab.Chew) 81 mg PO DAILY [facility] Last Admin: 10/31/24 09:31 Dose: 81 mg Atorvastatin Calcium (Atorvastatin Calcium 80 Mg Tablet) 80 mg PO BEDTIME [facility] Last Admin: 10/30/24 21:08 Dose: 80 mg Famotidine (Famotidine/Pf 20 Mg/2 Ml Vial) 20 mg IVPUSH DAILY [facility] Last Admin: 10/31/24 09:33 Dose: 20 mg Hydromorphone HCl (Hydromorphone Hcl 0.5 Mg/0.5 Ml Syringe) 0.5 mg IM Q4H PRN; Protocol PRN Reason: withdrawal Ampicillin Sodium/Sulbactam (Sodium 3 gm/ Sodium Chloride) 100 mls @ 200 mls/hr IV Q6H [facility] Last Infusion: 10/31/24 10:10 Dose: Infused Methadone HCl (Methadone Hcl 20 Mg/2 Ml Oral.Conc) 40 mg PO DAILY@0800 [facility] Last Admin: 10/31/24 09:31 Dose: 40 mg Naloxone HCl (Naloxone Hcl 0.4 Mg/Ml Vial) 0.2 mg IVPUSH Q2M PRN PRN Reason: Excessive sedation or RR < 8 Allergies Allergies Allergy/AdvReac Type Severity Reaction Status Date / Time No Known Allergies Allergy Verified 10/27/24 18:54 Assessment & Plan Assessment & Plan (1) Opioid use disorder: Status: Acute Code(s): F11.90 - Opioid use, unspecified, uncomplicated Assessment and Plan: * additional 40mg methadone administered for total of 80mg today * overdose prevention discussion --patient resistant to discussing as he states he will never be doing that again. Encouraged him to keep in touch with counselor and other recovery supports * plan to d/c today--with last dose letter to present to tomorrow Total time managing care of this patient today __25__ minutes.
== END 2024-10-31 16:36 | disposition home or self-care (01) | DRG 816 ==
LOC: HO.ED 21:39 → HO.EDOVER 22:37 → HO.ICU 22:44 → HO.IMC 10-29 19:08
PROVIDERS: Internal Medicine Critical Care Medicine; Internal Medicine Pulmonary Disease; Nurse Practitioner Acute Care; Physician Assistant; Physician Assistant Medical; Admitting Provider Registered Nurse Community Health; Emergency Provider Emergency Medicine; Visit Provider Physician Assistant Medical
DX: T40.1X1A Poisoning by heroin, accidental (unintentional), initial encounter (principal); J96.01 Acute respiratory failure with hypoxia; R57.0 Cardiogenic shock; J69.0 Pneumonitis due to inhalation of food and vomit; G92.8 Other toxic encephalopathy; I21.A1 Myocardial infarction type 2; E83.39 Other disorders of phosphorus metabolism; I42.9 Cardiomyopathy, unspecified; D64.9 Anemia, unspecified; R74.01 Elevation of levels of liver transaminase levels; R00.1 Bradycardia, unspecified; I47.20 Ventricular tachycardia, unspecified; F11.20 Opioid dependence, uncomplicated; F19.10 Other psychoactive substance abuse, uncomplicated
CPT/HCPCS: 36415; 70450; 71045; 80048; 80053; 80061; 80143; 80179; 80307; 82550; 82803; 82947; 83605; 83721; 83735; 83880; 84100; 84484; 85007; 85025; 85027; 85610; 85730; 86704; 86706; 86803; 87040; 87340; 93005; 93306; 94002; 94003; 94640; 99285; J0295; J0330; J1265; J1308; J1644; J1650; J1938; J2250; J2310; J2470; J2704; J2765; J3010; J3475; J3480; Q9957

== ENCOUNTER → 2024-10-27 18:58 | Outpatient (BNV) | payer OTHER, SELFPAY | PROVIDERS: Emergency Provider Emergency Medicine; Visit Provider Radiology Diagnostic Radiology | DX: R41.82 Altered mental status, unspecified (principal); J90 Pleural effusion, not elsewhere classified; Z99.11 Dependence on respirator [ventilator] status | CPT/HCPCS: 70450; 71045 ==

== ENCOUNTER 2024-10-27 22:31 | Outpatient (BNV) | payer OTHER, SELFPAY | END 2024-10-28 07:07 | PROVIDERS: Admitting Provider Registered Nurse Community Health; Emergency Provider Emergency Medicine; Visit Provider Radiology Diagnostic Radiology | DX: Z43.1 Encounter for attention to gastrostomy (principal) | CPT/HCPCS: 71045 ==

== ENCOUNTER 2024-10-27 22:31 | Outpatient (BNV) | payer OTHER, SELFPAY | END 2024-10-28 07:00 | PROVIDERS: Admitting Provider Registered Nurse Community Health; Emergency Provider Emergency Medicine; Visit Provider Internal Medicine | DX: I34.0 Nonrheumatic mitral (valve) insufficiency (principal); I21.4 Non-ST elevation (NSTEMI) myocardial infarction; I51.89 Other ill-defined heart diseases; I49.3 Ventricular premature depolarization | CPT/HCPCS: 93010; 93306 ==

== ENCOUNTER 2024-10-27 22:31 | Outpatient (BNV) | payer OTHER, SELFPAY | END 2024-10-29 10:38 | PROVIDERS: Admitting Provider Registered Nurse Community Health; Emergency Provider Emergency Medicine; Visit Provider Internal Medicine | DX: I49.3 Ventricular premature depolarization (principal); R00.1 Bradycardia, unspecified | CPT/HCPCS: 93010 ==

== ENCOUNTER → 2024-10-27 22:31 | Outpatient (BNV) | payer OTHER, SELFPAY | PROVIDERS: Admitting Provider Registered Nurse Community Health; Emergency Provider Emergency Medicine; Visit Provider Nurse Practitioner Acute Care | DX: F11.90 Opioid use, unspecified, uncomplicated (principal) | CPT/HCPCS: 99232; 99239; 99499 ==

== ENCOUNTER → 2024-10-27 22:31 | Outpatient (BNV) | payer OTHER, SELFPAY | PROVIDERS: Admitting Provider Registered Nurse Community Health; Emergency Provider Emergency Medicine; Visit Provider Nurse Practitioner Psychiatric/Mental Health | DX: F11.90 Opioid use, unspecified, uncomplicated (principal) | CPT/HCPCS: 99222; 99231 ==

== ENCOUNTER → 2024-10-27 22:31 | Outpatient (BNV) | payer OTHER, SELFPAY | PROVIDERS: Admitting Provider Registered Nurse Community Health; Emergency Provider Emergency Medicine; Visit Provider Internal Medicine | DX: T50.904A Poisoning by unspecified drugs, medicaments and biological substances, undetermined, initial encounter (principal); J96.00 Acute respiratory failure, unspecified whether with hypoxia or hypercapnia; G92.9 Unspecified toxic encephalopathy; I21.4 Non-ST elevation (NSTEMI) myocardial infarction; I47.20 Ventricular tachycardia, unspecified | CPT/HCPCS: 93010; 99223 ==

== ENCOUNTER → 2024-10-27 22:31 | Outpatient (BNV) | payer OTHER, SELFPAY | PROVIDERS: Admitting Provider Registered Nurse Community Health; Emergency Provider Emergency Medicine; Visit Provider Internal Medicine Critical Care Medicine | DX: I21.4 Non-ST elevation (NSTEMI) myocardial infarction (principal); J96.00 Acute respiratory failure, unspecified whether with hypoxia or hypercapnia; I95.9 Hypotension, unspecified; R79.89 Other specified abnormal findings of blood chemistry; G92.9 Unspecified toxic encephalopathy; T50.904A Poisoning by unspecified drugs, medicaments and biological substances, undetermined, initial encounter | CPT/HCPCS: 99223; 99232; 99291 ==

== ENCOUNTER 2024-11-14 13:04 | Outpatient (AMB) | payer OTHER, SELFPAY ==
--- OUTSIDE RECORDS SUMMARY | 2024-11-14 13:06 | XMS_ITS | Clinical Summary ---
Author Organization [facility] [address] [place] [address] [place] [id number] Phone Care Team Providers Care Rail Technician Name Role Phone Brandin Barger MD Primary Care Provider [phone] Allergies No known active allergies Medications methadone HCl (METHADONE ORAL) Take 90 mg by mouth daily. Active albuterol sulfate (ProAir RespiClick) 90 mcg/actuation aerosol powdr breath activated Inhale 2 Puffs into the lungs every 6 hours as needed (coughing or wheezing). 07/12/2022 Active naproxen (NAPROSYN) 500 mg tablet Take 1 Tablet by mouth 2 times daily as needed for Pain. 04/05/2023 Active rosuvastatin (CRESTOR) 10 mg tablet Take 1 tablet (10 mg total) by mouth 1 (one) time each day. 10/23/2023 Active Active Problems Problem Noted Date Diagnosed Date Incisional hernia, without obstruction or gangre ne 02/27/2019 Opioid dependence on agonist therapy ([facility] V24, [facility] V28) 07/04/2018 COPD (chronic obstructive pu lmonary disease) ([facility] V24, [facility] V28) 02/14/2017 Hyperlipidemia 02/14/2017 Spondylosis of lumbosacral region 02/14/2017 Immunizations Name Administration Dates Next Due Hepatitis A Adult (Havrix; Vaqta) 19yo and older 09/20/2019 Hepatitis B (Recombivax HB-Dialysis) 18yo and ol marvin 09/20/2019 Pneumococcal conjugate 13 va lent (Prevnar 13, PCV13) 2mo and older 07/04/2018 Pneumococcal polysaccharide 23 valent (Pneumovax 23) 2yo and older 10/06/2010,06/09/1998 Pneumococcal, Unspecified 06/09/1998 Td Tetanus diptheria (Tdvax) 7yo and older 10/25 Tdap Tetanus diptheria acell ular pertussis (Boostrix; Adacel) 7yo and older 10/06/2010 Surgical History Surgery Date Site/Laterality Comments OTHER SURGICAL HISTORY PROCEDURE: HISTORICAL SPLENECTOMY; COMMENT: age 15, sec to trauma from boxing, in [place] COLONOSCOPY 05/22/2017 PROCEDURE: HISTORICAL COLONOSCOPY; COMMENT: adenoma; repeat in 5 yrs HERNIA REPAIR PROCEDURE: AL REPAIR FIRST ABDOMINAL WALL HERNIA Medical History Medical History Date Comments Hyperlipidemia 02/14/2017 DX:Hyperlipidemi a Spondylosis of lumbosacral region 02/14/2017 DX:Spondylosis of lumbosacral region COPD (chronic obstructive pu lmonary disease) ([facility] V24, [facility] V28) 02/14/2017 DX:COPD (chronic o bstructive pulmonary disease) ([facility]) Opioid dependence on agonist therapy ([facility] V24, [facility] V28) 07/04/2018 DX:Opioid dependence on ago nist therapy ([facility]) Renal mass, right 03/13/2019 DX:Renal mass, right Family History Medical History Relation Name Comments Other: unknown Father Diabetes Mother Hypertension Mother Relation Name Status Comments Father (Age 70) Mother Alive Social History Tobacco Use Types Packs/Day Years Used Date Smoking Tobacco: Every Day Smokeless Tobacco: Never Alcohol Use Standard Drinks/Week Comments No 0 (1 standard drink = 0.6 oz pur e alcohol) Sex and Gender Information Value Date Recorded Sex Assigned at Not on file Legal Sex Male 1:51 PM EST Gender Identity Not on file Sexual Orientation Not on file Obstetrics History Last Filed Vital Signs Vital Sign Reading Time Taken Comments Blood Pressure 120/76 11/14/2023 2:09 PM EDT Pulse 66 11/14/2023 2:09 PM EDT Temperature - - Respiratory Rate - - Oxygen Saturation - - Inhaled Oxygen Concentration - - Weight 92.4 kg (203 lb 11.2 oz) 11/14/2023 2:09 PM EDT Height 165.1 cm (5' 5 ) 11/14/2023 2:09 PM EDT Body Mass Index 33.9 11/14/2023 2:09 PM EDT Plan of Treatment Health Maintenance Due Date Last Done Comments Zoster Vaccines (1 of 2) 2013 Hepatitis B Vaccines (2 of 3 - 19+ 3-dose series) 10/18/2019 09/20/2019 Hepatitis A Vaccines (2 of 2 - Risk 2-dose series) 03/22/2020 09/20/2019 Colorectal Cancer Screening: Colonoscopy 06/04/2022 05/22/2017 Depression Screening 06/04/2022 HIV Screening 06/04/2022 Social Influencers of Health Screening 06/04/2022 RSV Immunization Adult Patients (1 - Risk 60-74 years 1-dose series) 2023 Pneumococcal Vaccine: 50+ Years (3 of 3 - PCV20 or PCV21) 07/04/2023 07/04/2018, 10/06/2010, 06/09/1998, Additional history exists Pneumococcal Vaccine: Pediatrics (0 to 5 Years) and At-Risk Patients (6 to 64 Years) (3 of 3 - PCV20 or PCV21) 07/04/2023 07/04/2018, 10/06/2010, 06/09/1998, Additional history exists COVID-19 Vaccine ( - 2023- season) 2024 DTaP,Tdap,and Td Vaccines (3 - Td or Tdap) 10/25/2024 10/25/2014, 10/06/2010 Influenza Vaccine (Season Ended) 2025 Cholesterol Screening (Lipid Panel) 12/05/2028 12/06/2023, 12/06/2023 Hepatitis C Screening Completed 10/18/2017 HIB Vaccines Aged Out No longer eligi ble based on patient's age to complete this topic HPV Vaccines Aged Out No longer eligi ble based on patient's age to complete this topic IPV Vaccines Aged Out No longer eligi ble based on patient's age to complete this topic MMR Vaccines Aged Out No longer eligi ble based on patient's age to complete this topic Meningococcal ACWY Vaccine Aged Out N o longer eligible based on patient's age to complete this topic Meningococcal B Vaccine Aged Out No l onger eligible based on patient's age to complete this topic RSV Immunization Patients Under 20 months Aged Out No longer eligible based on patient's age to complete this topic Varicella Vaccines Aged Out No longer eligible based on patient's age to complete this topic Procedures Procedure Name Priority Date/Time Associated Diagnosis Comments LIPID PANEL Routine 12/06/2023 HEPATITIS C SCREENING Routine 10/18/2017 COLONOSCOPY Routine 05/22/2017 from Last 3 Months or Most Recently Relevant to Health Maintenance Results * (ABNORMAL) Lipid panel (12/06/2023) LDL/HDL Ratio 3 0 - 4 Triglycerides 60 0 - 150 mg/dL Cholesterol 192 0 - 200 mg/dL HDL 74 >=40 mg/dL LDL Cholesterol 106(A) 0 - 100 mg/dL Blood Venous blood specimen / Unknown [facility] Provider LAB BLOOD ORDERABLES Onelia l Result * Hepatitis C Screening (10/18/2017) Hepatitis C Screening abstracted [facility] Provider HEALTH MAINTENANCE Final Result * Colonoscopy (05/22/2017) Colonoscopy no interpreta tion,abstr acted Anatomical Region Laterality Modality Other Historical Provider HEALTH MAINTENANCE Final Result from Last 3 Months or Most Recently Relevant to Health Maintenance Insurance [facility] [employer] Advance Directives Documents on File Type Date Recorded Patient Evaporator Repairer Expl anation Health Care Decision (hx) 07/25/2019 AD MIRELES DIRECTIVE Health Care Decision (hx) 07/25/2019 AD MIRELES DIRECTIVE Care Teams Rail Technician Relationship Specialty Start Date End Date Brandin Barger MD [address] [place] [id number] PCP - General Internal Medicine 01/25/19
[2024-11-14 13:16] VITALS: BP 100/62; PULSE 53; BMI 29.2
--- NOTE | 2024-11-14 13:16 | MHC.OFFVIS ---
Vital Signs 11/14/24 13:16 Height 5 ft 8 in Weight 192 lb 3.889 oz BMI 29.2 BP 100/62 Blood Pressure Location Lt brachial Position Sitting Pulse 53 Pulse Source Pulse Oximeter Intake Visit Reasons: Follow up Poultry Scalder Required: Yes Poultry Scalder Language: Cherry Picker Operator Name: voice cook [id number] Allergies No Known Allergies Allergy (Verified 11/14/24 13:20) Medication List - Last Reconciled 11/14/24 by OLLIE Hilario aspirin 81 mg PO DAILY 90 days atorvastatin 80 mg PO BEDTIME methadone 100 mg PO DAILY HPI HPI Follow up: Details: Flavio is a 59-year-old male with past medical history of substance abuse who was recently admitted to [facility] after having a drug overdose at home. He was unconscious and had noted bradycardia receiving Narcan and intubation. He did require ICU level of care. Lab work showed troponin elevation consistent with demand NSTEMI. He did have a brief episode of NSVT. He was managed medically due to drug use in the risk for noncompliance. He was started on aspirin and atorvastatin. He was not started on beta-lorene due to his episode of bradycardia. Today he reports he has been doing well since his hospital discharge. He says he has not taken any illicit substances. He has been taking methadone as directed. He reports compliance with his aspirin and atorvastatin. He denies having any chest discomfort at rest or with activity. No heart palpitations, lightheadedness, presyncope, syncope, falls. No shortness of breath, PND, orthopnea or edema. Certified hourly sign language interpreter used. [facility] Social History Household Members: Significant Other and Children Housing: Apartment Do you presently have visiting nurse or other home services: No Patient Tobacco Use Status: Tobacco use Unknown Tobacco use type: Cigarette Cigarettes Per Day: 20 Substance Use Type: Heroin and Opiates service: No Review of Systems Const All systems reviewed & are unremarkable except as noted in HPI and below ENT Denies dizziness Card Denies chest pain, Denies chest pain at rest, Denies chest pain with activity, Denies rapid heart rate, Denies pedal edema, Denies edema, Denies leg edema, Denies lightheadedness, Denies palpitations, Denies dyspnea, Denies dyspnea on exertion and Denies orthopnea Resp Denies cough, Denies dyspnea and Denies dyspnea on exertion GI Denies hematochezia and Denies change in stool character Musc Denies abnormal gait, Denies limited range of motion, Denies muscle cramps, Denies muscle weakness, Denies numbness, Denies radiating pain into limb, Denies stiffness and Denies tingling Neuro Denies abnormal gait, Denies dizziness, Denies numbness and Denies tingling Endo Denies palpitations Physical Exam Vital Signs: Last Vital Signs Pulse 53 11/14/24 13:16 BP 100/62 11/14/24 13:16 BMI result Body Mass Index 29.2 Const General: cooperative, healthy appearing, comfortable and no acute distress Orientation/consciousness: patient oriented x3 Neck Neck: Yes normal visual inspection Resp Effort & Inspection: normal respiratory effort Auscultation: clear to auscultation bilaterally, no rales, no rhonchi and no wheezes Cardio Rate: regular rate Rhythm: regular rhythm Heart sounds: S1 normal heart sound present, S2 normal heart sound present, no gallops, no murmurs and no rubs Neuro General: patient oriented x3 Extrem General: Yes normal to inspection and No no pedal edema Psych Appearance: grossly normal Mental Status: mental status grossly normal Speech and movement: Normal speech and movement present Assessment & Plan Assessment & Plan (1) NSTEMI (non-ST elevated myocardial infarction): Code(s): I21.4 - Non-ST elevation (NSTEMI) myocardial infarction Category: Medical Plan: Recent NSTEMI, likely related to demand in the setting of hypotension, bradycardia with drug overdose. Troponin peak 4933. No known prior cardiac history. Echocardiogram showed EF 45%, basal inferior, basal inferior septal and basal inferior lateral akinesis, no valve abnormalities. He is on medical management with aspirin and atorvastatin and does report compliance. In a few weeks will plan for a limited echo to reassess EF and wall motion. Will check with his primary duplicator punch operator regarding further testing. (2) Opioid use disorder: Code(s): F11.90 - Opioid use, unspecified, uncomplicated Category: Medical Plan: Opioid overdose. Urine tox screen 10/27 positive for oxycodone, methadone, fentanyl. He tells me he has only used methadone since his hospital discharge. (3) Bradycardia: Code(s): R00.1 - Bradycardia, unspecified Category: Medical Plan: Bradycardic event with pulse rate 30s to 40s at time of overdose, Narcan given. Pulse today 53. Will check Holter monitor to assess for any significant bradycardia, arrhythmia or pauses. (4) Ventricular tachycardia: Code(s): I47.20 - Ventricular tachycardia, unspecified Category: Medical Plan: Brief NSVT during his hospital admission (5) Hospital discharge follow-up: Code(s): Z09 - Encounter for follow-up examination after completed treatment for conditions other than malignant neoplasm Category: Medical Plan: Hospital discharge summary and cardiology notes reviewed Plan Time spent on chart review, documentation, intravenous assessment I discussed with the patient the nature of the NSTEMI and the importance of ongoing management with aspirin and atorvastatin therapy. We reviewed the risk of continued substance use, emphasizing the need for adherence to methadone and the benefits of abstaining from illicit drugs. The rationale for not prescribing beta-blockers was explained due to previous bradycardia. The patient was informed about the upcoming repeat echocardiogram to assess cardiac function recovery and the use of a heart monitor to detect any persisting bradycardia. Potential complications and expected improvement with lifestyle changes were also discussed. Follow-up was scheduled for three months with contingency for earlier review if necessary. Orders: Orders CA Echo Limited 1 Month I21.4 - Non-ST elevation (NSTEMI) myocardial infarction ECG 3 day holter monitor 1 Month I47.20 - Ventricular tachycardia, unspecified, R00.1 - Bradycardia, unspecified Medications: Discontinued amoxicillin-pot clavulanate 875-125 mg Discontinued Reason: Patient Completed Course 1 tab PO Q12H 2 days 4 tabs 0RF Patient Instructions: - Continue taking aspirin and atorvastatin as prescribed. - Attend the repeat echocardiogram appointment in 4 weeks. - Wear a heart monitor as instructed to check heart rhythm. - Maintain methadone therapy and do not use illicit drugs. - Call or visit if there are any new symptoms like chest pain, breathing trouble, or dizziness. - Follow up in three months or sooner if needed. Patient was informed and verbally consented to the use of an ambient scribe for clinic note documentation during this visit. Coding Level of Care Code Est Pt Level 4 (38373) Complex EM visit Add On G2211 Diagnoses NSTEMI (non-ST elevated myocardial infarction) I21.4 Opioid use disorder F11.90 Bradycardia R00.1 Ventricular tachycardia I47.20 Hospital discharge follow-up Z09 Time Spent (min) 32
== END 2024-11-14 13:48 | disposition home or self-care (01) ==
PROVIDERS: PCP Internal Medicine; Visit Provider Nurse Practitioner Family
DX: I21.4 Non-ST elevation (NSTEMI) myocardial infarction (principal); F11.90 Opioid use, unspecified, uncomplicated; R00.1 Bradycardia, unspecified; I47.20 Ventricular tachycardia, unspecified; Z09 Encounter for follow-up examination after completed treatment for conditions other than malignant neoplasm
CPT/HCPCS: 99214; G2211

== ENCOUNTER → 2024-11-14 13:04 | Outpatient (BNVA) | payer OTHER, SELFPAY | PROVIDERS: Visit Provider Nurse Practitioner Family | DX: I21.4 Non-ST elevation (NSTEMI) myocardial infarction (principal); R00.1 Bradycardia, unspecified; I47.20 Ventricular tachycardia, unspecified; F11.90 Opioid use, unspecified, uncomplicated; Z09 Encounter for follow-up examination after completed treatment for conditions other than malignant neoplasm | CPT/HCPCS: 99212 ==

== ENCOUNTER → 2024-12-19 13:35 | Outpatient (REF) | payer OTHER, SELFPAY ==
--- NOTE | 2024-12-19 13:43 | CA_ITS ---
Transthoracic Echocardiogram Patient (Last, First, Middle): Flavio Wood, Gender: Male Date of : 1965 Age: 59 Procedure Date: 12/19/2024 Procedure Type: Transthoracic Echocardiogram Location: OP Height: 167.64 cm Weight: 81.65 kg BSA: 1.91 m2 Heart Rate: bpm BP: 120 / 70 mmHg Compressor House Operator: TO Referring MD: Keke Poe INJECTION MOLDING PROCESS TECHNICIANJames Symptoms: I21.4 - Non-ST elevation (NSTEMI) myocardial infarction Study Quality: Adequate w contrast Conclusions: - The left ventricular systolic function is mildly decreased. The calculated ejection fraction is 45% by biplane method. - The inferolateral wall, the mid inferior, and basal inferoseptal segments are hypokinetic. Findings Procedure Information Contrast agent, definity, is being given per protocol without apparent complications. Left Ventricle Normal left ventricular cavity size. The left ventricular systolic function is mildly decreased. The calculated ejection fraction is 45% by biplane method. There is evidence of regional wall motion abnormalities. Wall Motion Rest Echo Findings The inferolateral wall, the mid inferior, and basal inferoseptal segments are hypokinetic. Prior Study Comparison Changes noted compared to prior study dated: 10/28/2024. Wall motion abnormalities less prominent. Measurements 2D Linear Measurements IVSd: 1.18 0.6-0.9/0.6-1.0 cm LVIDd: 5.30 3.9-5.3/4.2-5.9 cm LVIDd Index: 2.77 2.4-3.2/2.2-3.1 cm/m2 LVIDs: 4.10 2.0-3.6 cm LVPWd: 0.78 0.7-1.1 cm LV Mass: 243.62 67-162/88-224 g LV Mass Index: 127.55 43-95/49-115 g/m2 LVOT Diam: 2.40 3.0+(-)1.3 cm 2D Systolic Function EF 4C: 46.30 >55% EF 2C: 46.40 >55% EF BiP: 45.20 >55% LVOT LVOT Pk Hilario: 1.17 LVOT Mn Hilario: 0.85 LVOT VTI: 0.26 LVOT Pk Grad: 5.00 LVOT Mn Grad: 3.00 LVOT Diam: 2.40 LVOT Area: 4.52 Tricuspid Valve RA Press: 3.00 Updated in Other Vendor System with Status of Final Lawrence Leary MD electronically signed on 12/21/2024 1:04:09 PM with status of Final
--- NOTE | 2024-12-19 13:43 | HM_ITS ---
Conclusion: 1. Patient was monitored for total period of 3 days 2. Baseline was normal sinus rhythm with average heart rate of 55 beats per minute 3. Frequent sinus bradycardia noted with 69% of time heart rate below 60 beats per minute without significant pauses 4. Occasional PACs noted with short runs of SVT, longest lasting 6 beats at 127 beats per minute 5. No patient reported events MTDD
[2024-12-19 13:51] LABS: MANUAL DIFF FLAG NO
[2024-12-19 14:21] LABS: Basophils Absolute Auto 0.1 X10*3/uL (0.0-0.2); Basophils Percent Auto 0.7 % (0-2); Eosinophils Absolute Auto 0.5 X10*3/uL (0.0-0.4); Eosinophils Percent Auto 4.9 % (0-4); Hematocrit 41.8 % (42.0-52.0); Hemoglobin 13.8 g/dl (14.0-18.0); Imm Gran Abs Auto 0.03 X10*3/uL (0.00-0.03); Imm Gran Pct Auto 0.3 % (0.0-0.4); Lymphocytes Absolute Auto 3.2 X10*3/uL (1.2-4.9); Lymphocytes Percent Auto 33.6 % (20-40); Mean Corpuscular Hemoglobin 28.8 pg (27.0-33.0); Mean Corpuscular Volume 87.3 fL (80.0-98.0); Mean Platelet Volume 10.8 fL (9.4-12.4); Monocytes Absolute Auto 0.9 X10*3/uL (0.1-1.2); Monocytes Percent Auto 9.7 % (2-11); Neutrophils Absolute Auto 4.8 x10*3/uL (2.0-8.3); Neutrophils Percent Auto 50.8 % (45-73); Platelet Count 276 X10*3/uL (160-400); Red Blood Count 4.79 X10*6/uL (4.60-5.80); Red Cell Distribution Width 13.2 % (11.0-16.0); White Blood Count 9.4 X10*3/uL (4.8-10.8)
[2024-12-19 14:26] LABS: Prothrombin Time 11.9 SEC (10.9-12.4)
[2024-12-19 14:50] LABS: Anion Gap 8 (12-20); Blood Urea Nitrogen 12 mg/dL (9-16); Calcium 8.8 mg/dL (8.4-10.2); Carbon Dioxide 31 mmol/L (22-29); Chloride 105 mmol/L (96-108); Estimated Glomerular Filt Rate > 60; Glucose Random 133 mg/dL (60-115); Potassium 4.1 mmol/L (3.3-5.1); Sodium 140 mmol/L (135-145)
== END ==
LOC: HO.CARD 13:35
PROVIDERS: PCP Internal Medicine; Visit Provider Nurse Practitioner Family
DX: I21.4 Non-ST elevation (NSTEMI) myocardial infarction (principal); R00.1 Bradycardia, unspecified; I47.20 Ventricular tachycardia, unspecified
CPT/HCPCS: 36415; 80048; 85025; 85610; 93242; 93308; Q9957

== ENCOUNTER → 2024-12-19 13:43 | Outpatient (BNV) | payer OTHER, SELFPAY | PROVIDERS: PCP Internal Medicine; Visit Provider Internal Medicine | DX: I51.89 Other ill-defined heart diseases (principal); I21.4 Non-ST elevation (NSTEMI) myocardial infarction | CPT/HCPCS: 93308 ==

== ENCOUNTER → 2024-12-26 23:59 | Outpatient (BNV) | payer OTHER, SELFPAY | PROVIDERS: PCP Internal Medicine; Visit Provider Internal Medicine Cardiovascular Disease | DX: I20.89 Other forms of angina pectoris (principal); I21.4 Non-ST elevation (NSTEMI) myocardial infarction | CPT/HCPCS: 93458; 99152 ==

== ENCOUNTER 2025-01-20 14:10 | Outpatient (AMB) | payer OTHER, SELFPAY ==
--- NOTE | 2025-01-20 14:31 | A.OFFVIS_ITS ---
Vital Signs 01/20/25 14:32 Height 5 ft 8 in Weight 186 lb 15.232 oz BMI 28.4 BP 90/60 Blood Pressure Location Rt brachial Position Sitting Pulse 58 Pulse Source Pulse Oximeter Pulse Oximetry (%) 93 Oxygen Delivery Method Room Air Intake Visit Reasons: ED follow up Intake Note: Follow up ED visit. Pt states he has electric shocks in his brain w/ dizziness and chest pain w/ or w/o ambulation. Bowling Ball Engraver Required: Yes Bowling Ball Engraver Language: Advertising Space Clerk Services: Bowling Ball Engraver Present Bowling Ball Engraver Name: Scott [id number] Information Interpreted: clinical only Accompanied by: Self / Same As Patient Allergies No Known Allergies Allergy (Verified 01/20/25 14:38) Medication List - Last Reconciled 01/20/25 by Keke Poe NP-C aspirin 81 mg PO DAILY 90 days atorvastatin 80 mg PO BEDTIME methadone 100 mg PO DAILY HPI HPI ED follow up: Details: Flavio is a 59-year-old male with past medical history of substance abuse who was recently admitted to [facility] after having a drug overdose at home. He was unconscious and had noted bradycardia receiving Narcan and intubation. He did require ICU level of care. Lab work showed troponin elevation consistent with demand NSTEMI. He did have a brief episode of NSVT. He was managed medically due to drug use in the risk for noncompliance. He was started on aspirin and atorvastatin. He was not started on beta-lorene due to his episode of bradycardia. His echocardiogram showed mildly reduced EF and regional wall motion abnormality. As outpatient he underwent cardiac catheterization showing normal coronary arteries. He now presents for follow- up. Today he reports he has been doing well since his last visit. He tells me he is no longer using any illicit substances. He admits to smoking 3-4 cigarettes per day. He has been taking methadone as directed. He reports compliance with his aspirin and atorvastatin. He denies having any chest discomfort at rest or with activity. No heart palpitations, lightheadedness, presyncope, syncope, falls. No shortness of breath, PND, orthopnea or edema. Certified solar sales consultant used. [facility] Social History Household Members: Significant Other and Children Housing: Apartment Do you presently have visiting nurse or other home services: No Patient Tobacco Use Status: Current everyday Tobacco user Tobacco use type: Cigarette Cigarettes Per Day: 5 Substance Use Type: Heroin and Opiates service: No Review of Systems Const All systems reviewed & are unremarkable except as noted in HPI and below Denies fatigue, Denies fever(s), Denies frequent falls and Denies weight gain Card Denies chest pain, Denies chest pain at rest, Denies chest pain with activity, Denies rapid heart rate, Denies leg edema, Denies lightheadedness, Denies dyspnea, Denies dyspnea on exertion, Denies orthopnea and Denies other (loss of consciousness) Resp Denies cough, Denies dyspnea and Denies dyspnea on exertion GI Denies hematochezia and Denies change in stool character Musc Denies abnormal gait, Denies radiating pain into limb and Denies tingling Neuro Denies abnormal gait, Denies frequent falls and Denies tingling Endo Denies fatigue Physical Exam Vital Signs: Last Vital Signs Pulse 58 01/20/25 14:32 BP 90/60 01/20/25 14:32 Pulse Ox 93 01/20/25 14:32 Oxygen Delivery Method Room Air 01/20/25 14:32 BMI result Body Mass Index 28.4 Const General: cooperative, healthy appearing, comfortable and no acute distress Orientation/consciousness: patient oriented x3 Resp Effort & Inspection: normal respiratory effort Auscultation: clear to auscultation bilaterally, no rales, no rhonchi and no wheezes Cardio Rate: regular rate Rhythm: regular rhythm Heart sounds: S1 normal heart sound present, S2 normal heart sound present, no gallops, no murmurs and no rubs Neuro General: patient oriented x3 Extrem Other: right radial cath site with easily palpable radial pulse, right hand assessment normal General: Yes normal to inspection and No no pedal edema Psych Appearance: grossly normal Mental Status: mental status grossly normal Speech and movement: Normal speech and movement present Assessment & Plan Assessment & Plan (1) NSTEMI (non-ST elevated myocardial infarction): Code(s): I21.4 - Non-ST elevation (NSTEMI) myocardial infarction Category: Medical Plan: Recent NSTEMI, likely related to demand in the setting of hypotension, bradycardia with drug overdose. Troponin peak 4933. No known prior cardiac history. Echocardiogram showed EF 45%, basal inferior, basal inferior septal and basal inferior lateral akinesis, no valve abnormalities. Cardiac catheterization done 12/26/2024 showing normal coronary arteries. Continue aspirin. He can continue atorvastatin with LDL goal less than 100. Will plan for limited echo after 3 months to reassess EF and wall motion. Cardiology follow-up 3 months, sooner if needed. (2) Opioid use disorder: Code(s): F11.90 - Opioid use, unspecified, uncomplicated Category: Medical Plan: Opioid overdose. Urine tox screen 10/27 positive for oxycodone, methadone, fentanyl. He still tells me he has only used methadone since his hospital discharge. (3) Bradycardia: Code(s): R00.1 - Bradycardia, unspecified Category: Medical Plan: Bradycardic event with pulse rate 30s to 40s at time of overdose, Narcan given. Holter monitor done 12/19/2024 for 3 days shows sinus rhythm with average heart rate 55 beats per minute, frequent sinus bradycardia, 69% of the time heart rate less than 60, occasional PACs with short SVT runs, longest 6 beats. Will continue to hold off on rate slowing medications. (4) Ventricular tachycardia: Code(s): I47.20 - Ventricular tachycardia, unspecified Category: Medical Plan: Brief NSVT during his hospital admission. None seen on Holter. (5) S/P cardiac cath: Comment: 12/26/2024 normal coronary arteries Code(s): Z98.890 - Other specified postprocedural states Category: Surgical Plan: Right radial catheterization site well healed (6) Abnormal echocardiogram: Code(s): R93.1 - Abnormal findings on diagnostic imaging of heart and coronary circulation Category: Medical Plan: Mildly reduced EF and regional wall motion abnormalities, as above. Plan Time spent on chart review, documentation, intravenous assessment Orders: Orders CA Echo Limited 10 Weeks R93.1 - Abnormal findings on diagnostic imaging of heart and coronary circulation Coding Level of Care Code Est Pt Level 4 (26150) Complex EM visit Add On G2211 Diagnoses NSTEMI (non-ST elevated myocardial infarction) I21.4 Opioid use disorder F11.90 Bradycardia R00.1 Ventricular tachycardia I47.20 S/P cardiac cath Z98.890 Abnormal echocardiogram R93.1 Time Spent (min) 28
[2025-01-20 14:32] VITALS: BP 90/60; PULSE 58; O2SAT 93; BMI 28.4
--- OUTSIDE RECORDS SUMMARY | 2025-01-20 14:55 | XMS_ITS | Clinical Summary ---
Author Organization [facility] [address] [place] [address] [place] [phone] Phone Care Team Providers Care Mortgage Protection Sales Name Role Phone Brandin Barger MD Primary Care Provider [phone] Allergies No known active allergies Medications methadone [...] ne 02/27/2019 Opioid dependence on agonist therapy ([facility] V24, [facility] V28) 07/04/2018 COPD (chronic obstructive pu lmonary disease) ([facility] V24, [facility] V28) 02/14/2017 Hyperlipidemia 02/14/2017 Spondylosis of lumbosacral [...] 15, sec to trauma from boxing, in [place] COLONOSCOPY 05/22/2017 PROCEDURE: HISTORICAL COLONOSCOPY; COMMENT: adenoma; repeat in 5 yrs HERNIA REPAIR PROCEDURE: NM REPAIR FIRST ABDOMINAL WALL HERNIA Medical History Medical History Date Comments Hyperlipidemia 02/14/2017 DX:Hyperlipidemi a Spondylosis of lumbosacral region 02/14/2017 DX:Spondylosis of lumbosacral region COPD (chronic obstructive pu lmonary disease) ([facility] [place], [facility] V28) 02/14/2017 DX:COPD (chronic o bstructive pulmonary disease) ([facility]) Opioid dependence on agonist therapy ([facility] [place], [facility] V28) 07/04/2018 DX:Opioid dependence on ago nist therapy ([facility]) Renal mass, right 03/13/2019 DX:Renal mass, right [...] 09/20/2019 Colorectal Cancer Screening: Colonoscopy 06/04/2022 05/22/2017 HIV Screening 06/04/2022 Social Influencers of Health Screening 06/04/2022 RSV Immunization Adult Patients (1 - Risk 60-74 years 1-dose series) 2023 Pneumococcal Vaccine: 50+ Years (3 of 3 - PCV20 or PCV21) 07/04/2023 07/04/2018, 10/06/2010, 06/09/1998, Additional history exists COVID-19 Vaccine (1 - 2023- season) 2024 Depression Screening 06/26/2024 DTaP,Tdap,and Td Vaccines (3 - Td or Tdap) 10/25/2024 10/25/2014, 10/06/2010 Influenza Vaccine (#1) 2025 Cholesterol Screening (Lipid Panel) 12/05/2028 12/06/2023, [...] Maintenance Results * (ABNORMAL) Lipid panel (12/06/2023) Pathologist [facility] LDL/HDL Ratio 3 0 - 4 Triglycerides 60 0 - 150 mg/dL Cholesterol 192 0 - 200 mg/dL HDL 74 >=40 mg/dL LDL Cholesterol 106(A) 0 - 100 mg/dL Blood Venous blood specimen / Unknown Historical Provider LAB BLOOD ORDERABLES Onelia l Result * Hepatitis C Screening (10/18/2017) Pathologist [facility] Hepatitis C Screening abstracted [facility] Provider HEALTH MAINTENANCE Final Result * Colonoscopy (05/22/2017) Pathologist [facility] Colonoscopy no interpreta tion,abstr acted Anatomical Region Laterality Modality Other [facility] Provider HEALTH MAINTENANCE Final Result from Last 3 Months or Most Recently Relevant to Health Maintenance [place] [address] [employer] [place] [id number] [employer]O GENERIC Advance Directives Documents on File Type Date Recorded Patient Plate Hanger Expl anation Health Care Decision (hx) 07/25/2019 AD MIRELES DIRECTIVE Health Care Decision (hx) 07/25/2019 AD MIRELES DIRECTIVE Care Teams Mortgage Protection Sales Relationship Specialty Start Date End Date Brandin Barger MD [address] [place] [id number] PCP - General Internal Medicine 01/25/19
== END 2025-01-20 15:01 | disposition home or self-care (01) ==
LOC: HO.HCS 14:11
PROVIDERS: PCP Internal Medicine; Visit Provider Nurse Practitioner Family
DX: I21.4 Non-ST elevation (NSTEMI) myocardial infarction (principal); F11.90 Opioid use, unspecified, uncomplicated; R00.1 Bradycardia, unspecified; I47.20 Ventricular tachycardia, unspecified; Z98.890 Other specified postprocedural states; R93.1 Abnormal findings on diagnostic imaging of heart and coronary circulation
CPT/HCPCS: 99214; G2211

== ENCOUNTER → 2025-01-20 14:10 | Outpatient (BNVA) | payer OTHER, SELFPAY | PROVIDERS: PCP Internal Medicine; Visit Provider Nurse Practitioner Family | DX: I21.4 Non-ST elevation (NSTEMI) myocardial infarction (principal); R00.1 Bradycardia, unspecified; R93.1 Abnormal findings on diagnostic imaging of heart and coronary circulation; I47.20 Ventricular tachycardia, unspecified; F11.20 Opioid dependence, uncomplicated; Z79.82 Long term (current) use of aspirin; Z79.899 Other long term (current) drug therapy; Z98.890 Other specified postprocedural states; F17.210 Nicotine dependence, cigarettes, uncomplicated | CPT/HCPCS: 99212 ==

== ENCOUNTER → 2025-03-31 15:01 | Outpatient (REF) | payer OTHER, SELFPAY ==
--- NOTE | 2025-03-31 15:04 | CA_ITS ---
Transthoracic Echocardiogram Patient (Last, First, Middle): Flavio oWod, Gender: M Date of : 1965 Age: 59 Procedure Date: 03/31/2025 Procedure Type: Transthoracic Echocardiogram Location: OP Height: 167. cm Weight: 81.65 kg BSA: 1.91 m2 Heart Rate: 46 bpm BP: 105 / 60 mmHg Senior Sql Dba: LYNNE Referring MD: Keke LEVIN Blending Tank Tender: Joshua Ritchie MD Symptoms: R93.1 - Abnormal findings on diagnostic imaging of heart and coronary ci... Study Quality: Adequate. Limited per order ECG Rhythm: Bradycardia Conclusions: - Normal LV ejection fraction of 65-70% with moderate asymmetric septal hypertrophy with impaired relaxation filling pattern Findings Left Ventricle Normal left ventricular size, thickness, and systolic function. The visually estimated ejection fraction is between 65-70%. Spectral Doppler is indicative of an impaired relaxation filling pattern. There is moderate septal asymmetric hypertrophy. Prior Study Comparison Changes noted compared to prior study dated: 12/19/2024. LV systolic function and regional wall motion abnormalities have improved Measurements 2D Linear Measurements IVSd: 1.68 0.6-0.9/0.6-1.0 cm LVIDd: 4.08 3.9-5.3/4.2-5.9 cm LVIDd Index: 2.14 2.4-3.2/2.2-3.1 cm/m2 LVIDs: 2.90 2.0-3.6 cm LVPWd: 1.16 0.7-1.1 cm LV Mass: 273.99 67-162/88-224 g LV Mass Index: 143.45 43-95/49-115 g/m2 LVOT Diam: 2.20 3.0+(-)1.3 cm 2D Systolic Function EF 4C: 71.80 >55% EF 2C: 69.90 >55% EF BiP: 69.90 >55% Mitral Valve MV Pk E: 1.00 MV PK A: 0.97 MV Decel Time: 274.00 E/A: 1.00 E'Lateral: 9.68 E'Medial: 5.77 E/E' Med: 17.30 E/E' Lat: 10.30 PHT: 80.00 MVA PHT: 2.75 Decel [place]: 3.65 LVOT LVOT Pk Hilario: 1.65 LVOT Mn Hilario: 1.06 LVOT VTI: 0.33 LVOT Pk Grad: 11.00 LVOT Mn Grad: 5.00 LVOT Diam: 2.20 LVOT Area: 3.80 Diastolic Function MV Pk E: 1.00 MV Pk A: 0.97 E/A: 1.00 E'Medial: 5.77 E/E' Med: 17.30 E' Laterial: 9.68 E/E' Lat: 10.30 Updated in Other Vendor System with Status of Final Joshua Ritchie MD electronically signed on 03/31/2025 4:49:01 PM with status of Final
--- OUTSIDE RECORDS SUMMARY | 2025-03-31 17:24 | XMS_ITS | Clinical Summary ---
Author Organization [facility] [address] [place] [address] [place] [phone] Phone Care Team Providers Care Automobile Accessories Installer Name Role Phone Brandin Barger MD Primary Care Provider [phone] Allergies No known active allergies Medications methadone [...] ne 02/27/2019 Opioid dependence on agonist therapy ([facility] V24, [facility] V28) 07/04/2018 COPD (chronic obstructive pu lmonary disease) ([facility] V24, [facility] V28) 02/14/2017 Hyperlipidemia 02/14/2017 Spondylosis of lumbosacral region 02/14/2017 Immunizations Immunization Administration Dates Next Due Hepatitis A Adult [...] 15, sec to trauma from boxing, in [place] COLONOSCOPY 05/22/2017 PROCEDURE: HISTORICAL COLONOSCOPY; COMMENT: adenoma; repeat in 5 yrs HERNIA REPAIR PROCEDURE: [place] REPAIR FIRST ABDOMINAL WALL HERNIA Medical History Medical History Date Comments Hyperlipidemia 02/14/2017 DX:Hyperlipidemi a Spondylosis of lumbosacral region 02/14/2017 DX:Spondylosis of lumbosacral region COPD (chronic obstructive pu lmonary disease) ([facility] V24, [facility] V28) 02/14/2017 DX:COPD (chronic o bstructive pulmonary disease) ([facility]) Opioid dependence on agonist therapy ([facility] V24, [facility] V28) 07/04/2018 DX:Opioid dependence on ago nist therapy ([facility]) Renal mass, right 03/13/2019 DX:Renal [...] series) 03/22/2020 09/20/2019 Colorectal Cancer Screening: Colonoscopy 05/22/2022 05/22/2017 HIV Screening 06/04/2022 Social Influencers of Health Screening 06/04/2022 RSV Immunization Adult Patients (1 - Risk 60-74 years 1-dose series) 2023 Pneumococcal Vaccine: 50+ Years (3 of 3 - PCV20 or PCV21) 07/04/2023 07/04/2018, 10/06/2010, 06/09/1998, Additional history exists Depression Screening 06/26/2024 DTaP,Tdap,and Td Vaccines (3 - Td or Tdap) 10/25/2024 10/25/2014, 10/06/2010 COVID-19 Vaccine ( season) 2025 Influenza Vaccine (#1) 2025 Cholesterol Screening (Lipid [...] Results * (ABNORMAL) Lipid panel (12/06/2023) Pathologist [facility] LDL/HDL Ratio 3 0 - 4 Triglycerides 60 0 - 150 mg/dL Cholesterol 192 0 - 200 mg/dL HDL 74 >=40 mg/dL LDL Cholesterol 106(A) 0 - 100 mg/dL Blood Venous blood specimen / Unknown Historical Provider LAB BLOOD ORDERABLES Onelia l Result * Hepatitis C Screening (10/18/2017) Pathologist [facility] Hepatitis C Screening abstracted [facility] Provider HEALTH MAINTENANCE Final Result * Colonoscopy (05/22/2017) Pathologist [facility] Colonoscopy no interpreta tion,abstr acted Anatomical Region Laterality Modality Other [facility] Provider HEALTH MAINTENANCE Final Result from Last 3 Months or Most Recently Relevant to Health Maintenance [place] [address] [employer] Advance Directives Documents on File Type Date Recorded Patient Reconciliation Machine Operator Expl anation Health Care Decision (hx) 07/25/2019 AD MIRELES DIRECTIVE Health Care Decision (hx) 07/25/2019 AD MIRELES DIRECTIVE Care Teams Automobile Accessories Installer Relationship Specialty Start Date End Date Brandin Barger MD [address] [place] [phone] PCP - General Internal Medicine 01/25/19
== END ==
LOC: HO.CARD 15:01
PROVIDERS: PCP Internal Medicine; Visit Provider Nurse Practitioner Family
DX: R93.1 Abnormal findings on diagnostic imaging of heart and coronary circulation (principal)
CPT/HCPCS: 93308

== ENCOUNTER → 2025-03-31 15:04 | Outpatient (BNV) | payer OTHER, SELFPAY | PROVIDERS: PCP Internal Medicine; Visit Provider Internal Medicine Cardiovascular Disease | DX: I42.2 Other hypertrophic cardiomyopathy (principal) | CPT/HCPCS: 93308 ==

== ENCOUNTER 2025-04-22 12:59 | Outpatient (AMB) | payer OTHER, SELFPAY ==
--- NOTE | 2025-04-22 13:04 | A.OFFVIS_ITS ---
Vital Signs 04/22/25 13:05 Height 5 ft 8 in Weight 188 lb 11.451 oz BMI 28.7 BP 90/62 Blood Pressure Location Lt brachial Position Sitting Pulse 62 Intake Visit Reasons: 3 mth f/up Vending Machine Collector Required: Yes Vending Machine Collector Language: General Operations Agent Name: trung knight [id number] Allergies No Known Allergies Allergy (Verified 04/22/25 13:10) Medication List - Last Reconciled 04/22/25 by OLLIE Hilario atorvastatin 80 mg PO BEDTIME methadone 100 mg PO DAILY HPI HPI 3 mth f/up: Details: Flavio is a 59-year-old male with past medical history of substance abuse who was admitted to [facility], 10/2024 after having a drug overdose at home. He was unconscious and had noted bradycardia receiving Narcan and intubation. He did require ICU level of care. Lab work showed troponin elevation consistent with demand NSTEMI. He did have a brief episode of NSVT. His echocardiogram showed mildly reduced EF and regional wall motion abnormality. As outpatient he underwent cardiac catheterization showing normal coronary arteries. He now presents for follow-up. Today he reports he has been doing well since his last visit in December. He says he is no longer using any illicit substances. He is on methadone. He still smokes 3-4 cigarettes per day. He denies having any chest discomfort at rest or with activity. No heart palpitations, lightheadedness, presyncope, syncope, falls. No shortness of breath, PND, orthopnea or edema. Taking meds as directed. Certified traffic enumerator used. [facility] Social History Household Members: Significant Other and Children Housing: Apartment Do you presently have visiting nurse or other home services: No Patient Tobacco Use Status: Current everyday Tobacco user Tobacco use type: Cigarette Cigarettes Per Day: 5 Substance Use Type: Heroin and Opiates service: No Review of Systems Const All systems reviewed & are unremarkable except as noted in HPI and below ENT Denies dizziness Card Denies chest pain, Denies chest pain at rest, Denies chest pain with activity, Denies rapid heart rate, Denies pedal edema, Denies edema, Denies leg edema, De nies lightheadedness, Denies palpitations, Denies dyspnea, Denies dyspnea on exertion and Denies orthopnea Resp Denies cough, Denies dyspnea and Denies dyspnea on exertion GI Denies hematochezia and Denies change in stool character Musc Denies abnormal gait, Denies limited range of motion, Denies muscle cramps, Denies muscle weakness, Denies numbness, Denies radiating pain into limb, Denies stiffness and Denies tingling Neuro Denies abnormal gait, Denies dizziness, Denies numbness and Denies tingling Endo Denies palpitations Physical Exam Vital Signs: Last Vital Signs BP 90/62 04/22/25 13:05 BMI result Body Mass Index 28.7 Const General: cooperative, healthy appearing, comfortable and no acute distress Orientation/consciousness: patient oriented x3 Neck Neck: Yes normal visual inspection Resp Effort & Inspection: normal respiratory effort Auscultation: clear to auscultation bilaterally, no rales, no rhonchi and no wheezes Cardio Rate: regular rate Rhythm: regular rhythm Heart sounds: S1 normal heart sound present, S2 normal heart sound present, no gallops, no murmurs and no rubs Neuro General: patient oriented x3 Extrem General: Yes normal to inspection, No no pedal edema and No calf tenderness Psych Appearance: grossly normal Mental Status: mental status grossly normal Speech and movement: Normal speech and movement present Assessment & Plan Assessment & Plan (1) NSTEMI (non-ST elevated myocardial infarction): Code(s): I21.4 - Non-ST elevation (NSTEMI) myocardial infarction Category: Medical Plan: Recent NSTEMI, likely related to demand in the setting of hypotension, bradycardia with drug overdose. Troponin peak 4933. Echocardiogram showed EF 45%, basal inferior, basal inferior septal and basal inferior lateral akinesis, no valve abnormalities. Cardiac catheterization done 12/26/2024 showing normal coronary arteries. A limited echocardiogram was done 03/31/2025 showing EF 65- 70%, no regional wall motion abnormalities. Results reviewed with him. Continue to abstain from drug use, physical activity as tolerated. Continue atorvastatin with LDL goal < 100. Cardiology follow-up 1 year, sooner if needed. (2) Opioid use disorder: Code(s): F11.90 - Opioid use, unspecified, uncomplicated Category: Medical Plan: Opioid overdose 10/2024. Urine tox screen 10/27 positive for oxycodone, methadone, fentanyl. He still tells me he has only used methadone since his hospital discharge. (3) Bradycardia: Code(s): R00.1 - Bradycardia, unspecified Category: Medical Plan: Bradycardic event with pulse rate 30s to 40s at time of overdose, Narcan given. Holter monitor done 12/19/2024 for 3 days shows sinus rhythm with average heart rate 55 beats per minute, frequent sinus bradycardia, 69% of the time heart rate less than 60, occasional PACs with short SVT runs, longest 6 beats. Will continue to hold off on rate slowing medications. (4) Ventricular tachycardia: Code(s): I47.20 - Ventricular tachycardia, unspecified Category: Medical Plan: Brief NSVT during his hospital admission. None seen on Holter. (5) S/P cardiac cath: Comment: 12/26/2024 normal coronary arteries Code(s): Z98.890 - Other specified postprocedural states Category: Surgical Plan: Right radial catheterization site well healed Plan Time spent on chart review, documentation, interview assessment Orders: Orders Lipid Panel Today I21.4 - Non-ST elevation (NSTEMI) myocardial infarction Comprehensive Met. Panel Today I21.4 - Non-ST elevation (NSTEMI) myocardial infarction Coding Level of Care Code Est Pt Level 4 (82486) Complex EM visit Add On G2211 Diagnoses NSTEMI (non-ST elevated myocardial infarction) I21.4 Opioid use disorder F11.90 Bradycardia R00.1 Ventricular tachycardia I47.20 S/P cardiac cath Z98.890 Time Spent (min) 28
[2025-04-22 13:05] VITALS: BP 90/62; PULSE 62; BMI 28.7
--- OUTSIDE RECORDS SUMMARY | 2025-04-22 16:24 | XMS_ITS | Clinical Summary ---
Author Organization [facility] [address] [place] [address] [place] [phone] Phone Care Team Providers Care Director Of Sustainable Design Name Role Phone Brandin Barger MD Primary Care Provider [phone] Allergies No known active allergies Medications methadone [...] ne 02/27/2019 Opioid dependence on agonist therapy ([facility] V24, [facility] V28) 07/04/2018 COPD (chronic obstructive pu lmonary disease) ([facility] V24, [facility] V28) 02/14/2017 Hyperlipidemia 02/14/2017 Spondylosis of lumbosacral [...] 15, sec to trauma from boxing, in [place] COLONOSCOPY 05/22/2017 PROCEDURE: HISTORICAL COLONOSCOPY; COMMENT: adenoma; repeat in 5 yrs HERNIA REPAIR PROCEDURE: [place] REPAIR FIRST ABDOMINAL WALL HERNIA Medical History Medical History Date Comments Hyperlipidemia 02/14/2017 DX:Hyperlipidemi a Spondylosis of lumbosacral region 02/14/2017 DX:Spondylosis of lumbosacral region COPD (chronic obstructive pu lmonary disease) ([facility], [facility] V28) 02/14/2017 DX:COPD (chronic o bstructive pulmonary disease) ([facility]) Opioid dependence on agonist therapy ([facility]24, [facility] V28) 07/04/2018 DX:Opioid dependence on ago nist therapy ([facility]) Renal mass, right 03/13/2019 DX:Renal mass, right [...] Health Maintenance Due Date Last Done Comments RSV Immunization Adult Patients (1 - Risk 50-74 years 1-dose series) 2013 Zoster Vaccines (1 of 2) 2013 Hepatitis B Vaccines (2 of 3 - 19+ 3-dose series) 10/18/2019 09/20/2019 Hepatitis A Vaccines (2 of 2 - Risk 2-dose series) 03/22/2020 09/20/2019 Colorectal Cancer Screening: Colonoscopy 05/22/2022 05/22/2017 HIV Screening 06/04/2022 Social Influencers of Health Screening 06/04/2022 Pneumococcal Vaccine: 50+ Years (3 of 3 [...] Results * (ABNORMAL) Lipid panel (12/06/2023) Pathologist [facility] LDL/HDL Ratio 3 0 - 4 Triglycerides 60 0 - 150 mg/dL Cholesterol 192 0 - 200 mg/dL HDL 74 >=40 mg/dL LDL Cholesterol 106(A) 0 - 100 mg/dL Blood Venous blood specimen / Unknown Historical Provider LAB BLOOD ORDERABLES Onelia l Result * Hepatitis C Screening (10/18/2017) Pathologist [facility] Hepatitis C Screening abstracted [facility] Provider HEALTH MAINTENANCE Final Result * Colonoscopy (05/22/2017) Pathologist [facility] Colonoscopy no interpreta tion,abstr acted Anatomical Region Laterality Modality Other [facility] Provider HEALTH MAINTENANCE Final Result from Last 3 Months or Most Recently Relevant to Health Maintenance Insurance [place] [address] [place] [address] [employer] Advance Directives Documents on File Type Date Recorded Patient Digital Media Director Expl anation Health Care Decision (hx) 07/25/2019 AD MIRELES DIRECTIVE Health Care Decision (hx) 07/25/2019 AD MIRELES DIRECTIVE Care Teams Director Of Sustainable Design Relationship Specialty Start Date End Date Brandin Barger MD [address] [place] [phone] PCP - General Internal Medicine 01/25/19
== END 2025-04-22 13:44 | disposition home or self-care (01) ==
LOC: HO.HCS 13:00
PROVIDERS: PCP Internal Medicine; Visit Provider Nurse Practitioner Family
DX: I21.4 Non-ST elevation (NSTEMI) myocardial infarction (principal); F11.90 Opioid use, unspecified, uncomplicated; R00.1 Bradycardia, unspecified; I47.20 Ventricular tachycardia, unspecified; Z98.890 Other specified postprocedural states
CPT/HCPCS: 99214

== ENCOUNTER → 2025-04-22 12:59 | Outpatient (BNVA) | payer OTHER, SELFPAY | PROVIDERS: PCP Internal Medicine; Visit Provider Nurse Practitioner Family | DX: I21.4 Non-ST elevation (NSTEMI) myocardial infarction (principal); R00.1 Bradycardia, unspecified; I47.20 Ventricular tachycardia, unspecified; F11.90 Opioid use, unspecified, uncomplicated; Z98.890 Other specified postprocedural states | CPT/HCPCS: 99212 ==